=== PATIENT | female | born 1935 | race Caucasian/White ===

== ENCOUNTER 2020-09-10 07:45 | Emergency (ER) | payer BC, MEDICARE ==
[~2020-09-10] VITALS: Ht 167.6 cm; Wt 85.6 kg
[2020-09-10] MEDS ORDERED: NS 500 ML IV ONE (08:30)
[2020-09-10 08:37] LABS: BASO # 0.1 10^3/uL (0.0-0.2); BASO % 0.7 % (0.0-1.0); EOS # 0.2 10^3/uL (0.0-0.5); EOS % 1.7 % (0.0-3.0); HEMATOCRIT 44.6 % (36.0-47.0); HEMOGLOBIN 14.2 g/dl (12.0-15.5); LYMPH # 1.5 10^3/uL (1.5-5.0); LYMPH % 14.5 % (24.0-44.0); MEAN CORPUSCULAR HEMOGLOBIN 28.2 pg (27.0-33.0); MEAN CORPUSCULAR HGB CONC 31.8 g/dl (32.0-36.5); MEAN CORPUSCULAR VOLUME 88.7 fl (80.0-96.0); MONO # 0.9 10^3/uL (0.0-0.8); NEUTROPHILS # 7.3 10^3/uL (1.5-8.5); NEUTROPHILS % 73.6 % (36.0-66.0); PLATELET COUNT, AUTOMATED 234 10^3/uL (150-450); RED BLOOD COUNT 5.03 10^6/uL (4.00-5.40)
[2020-09-10 08:47] LABS: INR 1.02; PROTHROMBIN TIME 13.6 SECONDS (12.5-14.3)
[2020-09-10 08:48] LABS: PARTIAL THROMBOPLASTIN TIME 28.8 SECONDS (24.2-38.5)
[2020-09-10 09:02] LABS: ALBUMIN 3.6 GM/DL (3.2-5.2); ALT/SGPT 26 U/L (12-78); AMYLASE 21 U/L (25-115); BILIRUBIN,DIRECT 0.3 MG/DL (0.0-0.2); BLOOD UREA NITROGEN 16 MG/DL (7-18); CALCIUM LEVEL 8.9 MG/DL (8.8-10.2); CARBON DIOXIDE LEVEL 22 MEQ/L (21-32); CHLORIDE LEVEL 109 MEQ/L (98-107); CK-MB VALUE MASS 2.4 NG/ML (<3.6); CPK CREATINE PHOSPHOKINASE 145 U/L (26-192); CREATININE FOR GFR 1.13 MG/DL (0.55-1.30); GLOMERULAR FILTRATION RATE 48.8 (>32); GLUCOSE, FASTING 102 MG/DL (70-100); LIPASE 89 U/L (73-393); MB/CK RELATIVE INDEX 1.66 (< OR =4); POTASSIUM SERUM 3.9 MEQ/L (3.5-5.1); SODIUM LEVEL 139 MEQ/L (136-145); TOTAL PROTEIN 7.4 GM/DL (6.4-8.2); TROPONIN I < 0.02 NG/ML (< 0.10)
--- NOTE | 2020-09-10 09:23 | REP ---
INDICATION: pain. COMPARISON: 08/21/2005. TECHNIQUE: SINGLE PORTABLE AP VIEW OF THE CHEST WAS PERFORMED. FINDINGS: THERE IS NO ACUTE INFILTRATE OR PULMONARY EDEMA. LUNGS ARE CLEAR. HEART IS NOT SIGNIFICANTLY ENLARGED. MEDIASTINAL SILHOUETTE IS UNREMARKABLE. THE VISUALIZED OSSEOUS STRUCTURES ARE INTACT. IMPRESSION: NO ACUTE PULMONARY DISEASE. <Electronically signed by Dharmesh Pacheco > 09/10/20 [id number]
[2020-09-10] MEDS ORDERED: ISOVUE-370 76% 100ML VIAL As Ordered ONE (11:07)
--- NOTE | 2020-09-10 11:34 | REPVR ---
PROCEDURE INFORMATION: Exam: CT Head Without Contrast Exam date and time: 09/10/2020 11:22 AM Age: 84 years old Clinical indication: Pain; Headache; Additional info: Abdominal pain TECHNIQUE: Imaging protocol: Computed tomography of the head without contrast. Radiation optimization: All CT scans at this facility use at least one of these dose optimization techniques: automated exposure control; mA and/or kV adjustment per patient size (includes targeted exams where dose is matched to clinical indication); or iterative reconstruction. COMPARISON: No relevant prior studies available. FINDINGS: Brain: There is moderate cerebral atrophy. Cerebral ventricles: No ventriculomegaly. Bones/joints: There is hyperostosis frontalis. Paranasal sinuses: Visualized sinuses are unremarkable. No fluid levels. Mastoid air cells: Visualized mastoid air cells are well aerated. Vasculature: There is moderate intracranial vascular calcification. Soft tissues: Unremarkable. IMPRESSION: No acute intracranial findings identified. Please refer to incidental findings in body of report. Electronically signed by: Mando Leyva On 09/10/2020 11:34:13 AM
--- NOTE | 2020-09-10 11:47 | REP ---
INDICATION: abdominal pain. COMPARISON: None. TECHNIQUE: CT angiogram chest performed following the intravenous administration of 100 cc of Isovue 370. Sagittal and coronal reconstruction images are performed. FINDINGS: Lungs: Clear, no infiltrate or nodule. There appears to be mild bibasilar fibrotic change. Mediastinum: No adenopathy. Pulmonary arteries: No evidence of pulmonary embolism. Nicole: No adenopathy. Axilla: No adenopathy. Pleura: No effusion. Heart: Not enlarged. Thoracic aorta: No aneurysm or dissection. There is a 1 cm partially enhancing and partially cystic nodule in the right lobe of the thyroid gland measuring 1 cm in diameter. Visualized osseous structures: There are degenerative changes of the spine without compression deformity. IMPRESSION: No CT evidence of pulmonary embolism.No infiltrate seen. No aortic aneurysm or dissection. Partially cystic and solid right thyroid nodule 1 cm in diameter. This may be followed up with ultrasound of the thyroid. <Electronically signed by Dharmesh Pacheco > 09/10/20 [id number]
--- NOTE | 2020-09-10 11:55 | REP ---
INDICATION: abdominal pain COMPARISON: 08/23/2005. TECHNIQUE: CT Scan of the abdomen and pelvis was performed with intravenous administration of 100 cc of Isovue 370, without oral contrast. FINDINGS: Liver: A cyst is seen at the dome of the liver measuring 2.1 cm in diameter. Gallbladder: Several gallstones are seen in the gallbladder without gallbladder wall thickening or edema. There is no evidence of biliary dilatation. Spleen: Normal. Adrenals: Normal. Pancreas: Normal. Kidneys: There are multiple parapelvic cysts bilaterally. Small and large bowel: Unremarkable. No definite wall thickening. No evidence for obstruction. Free fluid: None. Abdominal aorta: No aneurysm or dissection. Adenopathy: None. Appendix: Not inflamed. Osseous structures: There are degenerative changes of the spine without compression deformity. Pelvis: No mass. The bladder is not distended and not evaluated. IMPRESSION: Chronic findings as discussed above. Gallstones are again seen in the gallbladder without evidence of gallbladder wall thickening or edema. No free air or free fluid. No bowel wall thickening or inflammation identified. No evidence of bowel obstruction. <Electronically signed by Dharmesh Pacheco > 09/10/20 [id number]
[2020-09-10] MEDS ORDERED: KEFL500C17 PO (12:20)
[2020-09-10 12:32] VITALS: BP 143/71
--- NOTE | 2020-09-11 14:06 | ECGEPIP ---
[facility] - ED Test Date: 2020-09-10 Pat Name: KETAN HUNTER Department: Room: - Gender: Female Deputy Brand Inspector: leonie hayes : 1935 Requested By: SUZETTE Felix Order Number: [id number] Reading MD: nAgeli Araujo Measurements Intervals [place] Rate: 76 P: 66 [place]: 209 QRS: 21 QRSD: 92 T: 50 QT: 386 QTc: 435 Interpretive Statements SINUS RHYTHM NO PRIOR Electronically Signed on 09-11-2020 14:06:32 EST by Angeli Araujo
--- NOTE | 2020-09-13 06:37 | ED PDOC ---
Post-Departure Follow-Up certified letter sent to pt re formal read of cta chest. please review. needs fu . find out who pcp is and fax. if no pcp refer to [facility] and fax.Mauricio Stoner MD Sep 13, 2020 06:37
== END 2020-09-10 12:34 | disposition home or self-care (01) ==
LOC: M ED 07:45 → EDBD 07:45 → M ED 12:34
DX: N39.0 Urinary tract infection, site not specified (principal); E04.1 Nontoxic single thyroid nodule; K50.90 Crohn's disease, unspecified, without complications; Z88.0 Allergy status to penicillin; Z88.2 Allergy status to sulfonamides; Z88.8 Allergy status to other drugs, medicaments and biological substances
CPT/HCPCS: 70450; 71045; 71275; 74177; 80048; 80076; 81001; 82150; 82550; 82553; 83605; 83690; 84484; 85025; 85610; 85730; 87088; 87186; 93005; 93041; 96360; 99285; Q9967

== ENCOUNTER → 2021-02-17 | Outpatient (REF) | payer MEDICARE ==
[~2021-02-17] MED LIST: KEFL500C17 PO
[2021-02-17 19:38] LABS: FOLATE 9.3 NG/ML; FREE T4 1.02 NG/DL (0.76-1.46); THYROID STIMULATING HORMONE 2.26 uIU/ML (0.358-3.740)
== END ==
LOC: M SFHCADAM 11:49
PROVIDERS: ATTEND Physician Assistant
DX: F03.91 Unspecified dementia, unspecified severity, with behavioral disturbance (principal); I10 Essential (primary) hypertension
CPT/HCPCS: 82607; 82746; 84439; 84443; G0463

== ENCOUNTER → 2021-04-24 | Outpatient (CLI) | payer MEDICARE ==
--- NOTE | 2021-04-24 08:18 | REPVR ---
PROCEDURE INFORMATION: Exam: CT Head Without Contrast Exam date and time: 04/24/2021 7:38 AM Age: 85 years old Clinical indication: Condition or disease; Other: Dementia TECHNIQUE: Imaging protocol: Computed tomography of the head without contrast. Radiation optimization: All CT scans at this facility use at least one of these dose optimization techniques: automated exposure control; mA and/or kV adjustment per patient size (includes targeted exams where dose is matched to clinical indication); or iterative reconstruction. COMPARISON: CT Head without contrast 09/10/2020 11:07 AM FINDINGS: Brain: Mild hypoattenuating foci are noted in the anterior lateral ventricular periventricular white matter bilaterally. No intracranial hemorrhage. No mass or acute cortical infarction identified. Cerebral ventricles: Prominence of the ventricular system and subarachnoid spaces is consistent with the patient's age of 85 years. Paranasal sinuses: Visualized sinuses are unremarkable. No fluid levels. Mastoid air cells: Visualized mastoid air cells are well aerated. Vasculature: Atherosclerotic calcifications are present involving the carotid artery siphons bilaterally. Bones/joints: No acute abnormality. No acute fracture. Soft tissues: Unremarkable. IMPRESSION: 1. Age appropriate supratentorial and infratentorial atrophy. 2. 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 3. No acute intracranial abnormality identified. Electronically signed by: Óscar Polanco On 04/24/2021 08:18:22 AM
== END ==
LOC: M RAD 07:23
PROVIDERS: ATTEND Physician Assistant
DX: F03.91 Unspecified dementia, unspecified severity, with behavioral disturbance (principal)

== ENCOUNTER 2021-05-17 10:39 | Emergency (ER) | payer MEDICARE ==
--- NOTE | 2021-05-17 11:57 | REP ---
INDICATION: altered mental status. COMPARISON: Comparison study April 24, 2021.. TECHNIQUE: Helical scanning is acquired. 5 mm axial images were reformatted. Coronal MPR images were generated. FINDINGS: Bone window settings demonstrate an intact bony calvarium. There is no evidence of skull fracture or incidental bony calvarial lesion. The visualized paranasal sinuses appear clear. No intraorbital abnormality is seen. On soft tissue window setting images; the lateral, third, and fourth ventricles are normal in size and position. Pacheco-white differentiation pattern is normal above and below the tentorium. There are is no evidence of intracranial hemorrhage. No mass, edema, infarction, or midline shift is seen. No extra-axial fluid collection is appreciated. Hyperostosis frontalis interna is visible on bone window settings. Vascular calcification is observed in the distal vertebral and distal internal carotid arteries. There is generalized volume loss and mild small vessel change noted on today's images unchanged from the April 24, 2021 study. IMPRESSION: Vascular calcification, generalized volume loss, small vessel changes. No acute intracranial abnormality.. <Electronically signed by Aki Pratt > 05/17/21 [id number]
--- NOTE | 2021-05-17 11:59 | REP ---
INDICATION: altered mental status. COMPARISON: Comparison chest x-ray September 10, 2020.. TECHNIQUE: AP sitting portable exam. FINDINGS: EKG electrodes are seen. The lungs are symmetrically aerated and clear. The pleural angles are sharp. Cardiomediastinal silhouette is unremarkable and unchanged. Pulmonary vasculature is not increased. IMPRESSION: No active disease. <Electronically signed by Aki Pratt > 05/17/21 [id number]
[2021-05-17 12:11] LABS: BASO # 0.1 10^3/uL (0.0-0.2); EOS # 0.2 10^3/uL (0.0-0.5); EOS % 1.8 % (0.0-3.0); HEMATOCRIT 43.7 % (36.0-47.0); HEMOGLOBIN 14.2 g/dl (12.0-15.5); LYMPH # 1.8 10^3/uL (1.5-5.0); LYMPH % 19.5 % (24.0-44.0); MEAN CORPUSCULAR HEMOGLOBIN 29.1 pg (27.0-33.0); MEAN CORPUSCULAR HGB CONC 32.5 g/dl (32.0-36.5); MEAN CORPUSCULAR VOLUME 89.5 fl (80.0-96.0); MONO # 1.2 10^3/uL (0.0-0.8); MONO % 12.8 % (2.0-8.0); NEUTROPHILS % 64.6 % (36.0-66.0); PLATELET COUNT, AUTOMATED 224 10^3/uL (150-450); RED BLOOD COUNT 4.88 10^6/uL (4.00-5.40); WHITE BLOOD COUNT 9.3 10^3/uL (4.0-10.0)
[2021-05-17 12:45] VITALS: BP 142/75
[2021-05-17 12:50] LABS: ACETAMINOPHEN LEVEL < 2.0 UG/ML (10.0-30.0); ALBUMIN 3.6 GM/DL (3.2-5.2); ALT/SGPT 24 U/L (12-78); BILIRUBIN,DIRECT < 0.1 MG/DL (0.0-0.2); BILIRUBIN,TOTAL 0.7 MG/DL (0.2-1.0); BLOOD UREA NITROGEN 17 MG/DL (7-18); CALCIUM LEVEL 8.9 MG/DL (8.8-10.2); CARBON DIOXIDE LEVEL 26 MEQ/L (21-32); CHLORIDE LEVEL 105 MEQ/L (98-107); CK-MB VALUE MASS 1.4 NG/ML (<3.6); CPK CREATINE PHOSPHOKINASE 173 U/L (26-192); CREATININE FOR GFR 1.05 MG/DL (0.55-1.30); ETHYL ALCOHOL (ETHANOL) < 0.003 % (0.000-0.010); GLUCOSE, FASTING 83 MG/DL (70-100); MB/CK RELATIVE INDEX 0.81 (< OR =4); POTASSIUM SERUM 4.5 MEQ/L (3.5-5.1); SALICYLATE LEVEL < 1.7 MG/DL (5.0-30.0); SODIUM LEVEL 137 MEQ/L (136-145); TOTAL PROTEIN 7.3 GM/DL (6.4-8.2); TROPONIN I < 0.02 NG/ML (< 0.10)
[2021-05-17] MEDS ORDERED: NITROFURANTOIN (MACROBID) 100 MG CAP PO ONE (13:10)
[2021-05-17] MEDS ORDERED: NITR-67 PO (13:10)
--- NOTE | 2021-05-18 20:23 | ECGEPIP ---
[facility] - ED Test Date: 2021-05-17 Pat Name: KETAN HUNTER Department: Room: - Gender: Female Community Support Associate: LR : 1935 Requested By: Mauricio Barba Order Number: [id number] Reading MD: Angeli Araujo Measurements Intervals [place] Rate: 92 P: 58 [place]: 180 QRS: 21 QRSD: 82 T: 63 QT: 348 QTc: 430 Interpretive Statements Sinus rhythm with occasional premature ventricular complexes increased rate/ectopy 09/10/20 Electronically Signed on 05-18-2021 20:23:11 EDT by Angeli Araujo
== END 2021-05-17 13:49 | disposition home or self-care (01) ==
LOC: M ED 10:39
DX: F03.90 Unspecified dementia, unspecified severity, without behavioral disturbance, psychotic disturbance, mood disturbance, and anxiety (principal); N39.0 Urinary tract infection, site not specified; I67.2 Cerebral atherosclerosis; Z88.0 Allergy status to penicillin; Z88.2 Allergy status to sulfonamides; Z88.8 Allergy status to other drugs, medicaments and biological substances

== ENCOUNTER 2021-08-20 15:34 | Inpatient (IN) | payer MEDICARE ==
[~2021-08-20] VITALS: Ht 160 cm; Wt 85.2 kg
[~2021-08-20 15:34] MED LIST changes: +NITR-67 PO
--- OUTSIDE RECORDS SUMMARY | 2021-08-20 15:42 | CCD | Continuity of Care Document ---
Author Rachna Robertson M.D. Organization Unknown Address [address] [place] [address] Phone [phone] Care Team Providers Care Machine Hose Cutter Name Role Phone Vivienne Nino PA-C AUTM [phone] Problems Active Problems Provider Date Alzheimer's disease Rola Cronin M.D. Onset: 05/27/2021 Generalized anxiety disorder Rola Cronin M.D. Onset: 01/2021 Diffuse Lewy body disease Rola Cronin M.D. Onset: 021 Social History Type Date Description Comments Sex Unknown Tobacco Use Start: Unknown Patient has never smoked Allergies and adverse reactions Description No Known Drug Allergies Medications Active Medications SIG Qnty Indications Ordering Provide r Date Memantine HCL 10mg Tablets Half a tab po bid for 2 weeks, then 1 po bid. 60tabs Rola Cronin M.D. 08/05/2021 Aripiprazole 2mg Tablets 1 by mouth qhs. 30tateofilo Cronin M.D. 06/02/2021 Citalopram Hydrobromide 20mg Table ts 1 by mouth qhs. 30ed Cronin M.D. 05/27/2021 Immunizations Description No Information Available Vital Signs Date Vital Result Comment 05/27/2021 8:37am BP Systolic 130 mmHg BP Diastolic 85 mmHg Heart Rate 74 /min Respiratory Rate 14 /min Height 64 inches 5'4" Weight 184.00 lb BMI (Body Mass Index) 31.6 kg/m2 [place] Body Weight 120 lb Results Description No Information Available Procedures Date Code Description Status 08/05/2021 74937 Office/Outpatient Established Lo w MDM 20-29 Min Completed 05/27/2021 18170 Office/Outpatient New Moderate M DM 45-59 Minutes Completed Medical Devices Description No Information Available Encounters Type Date Location Provider Dx Diagnosis Office Visit 08/05/2021 11:30a Main office - [place] Daniel Bergeron G30.1 Alzheimer's disease with late onset F41.1 Generalized anxiety disorder 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 08/05/2021 F41.1 Generalized anxiety disorder Theo Cronin M.D. 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 05/27/2021 G30.1 Alzheimer's disease with late on set Rola Cronin M.D. 05/27/2021 F41.1 Generalized anxiety disorder Theo Cronin M.D. Plan of Treatment Future Appointment(s):* 11/05/2021 11:00 am - Rola Cronin M.D. at Main office - [place] Functional Status Description No Information Available Mental Status Description No Information Available Referrals Refer to Dr Reason for Referral Status Appt Rola Marin M.D. Created [facility] [address] [place] [address] [phone]
--- OUTSIDE RECORDS SUMMARY | 2021-08-20 15:42 | CCD ---
Author [facility] Organization [facility] [employer] Address Unknown Phone Unavailable Care Team Providers Care Svp Digital Ad Sales Name Role Phone Vivienne Nino Unavailable PROBLEMS Type Condition ICD9-CM Code [id number] Code Onset Dates Condition S tatus W/U Status Risk SNOMED Code Notes Problem Dementia with behavioral disturbance, unspecifie d dementia type F03.91 Active confirmed 1324625537586 Problem Essential hypertension I10 Active confirmed [id number] ALLERGIES No Known Allergies ENCOUNTERS from 1935 to 2021-06-19 Encounter Location Date Provider Diagnosis [facility] [address] [place] [address] May, Vivienne Crowchas Dementia with behavioral disturbance, un specified dementia type F03.91 and Essential hypertension I10 IMMUNIZATIONS No Information SOCIAL HISTORY Tobacco Use: Social History Observation Description Date Details (start date - stop date) Sex Assigned At : Social History Observation Description Sex Assigned At Unknown Audit Question Answer Notes Total Score: 0 Interpretation: Alcohol Education Language: Question Answer Notes Languages spoken: Azeri Domestic Violence: Question Answer Notes Status: Single Drug and Alcohol Question Answer Notes Total Score: 0 Interpretation: No problems reported Alcohol Screening: Question Answer Notes Did you have a drink containing alcohol in the past year? No Points 0 Interpretation Negative Tobacco Use: Question Answer Notes Are you a: never smoker REASON FOR REFERRAL No Information VITAL SIGNS Weight 186 lbs May, Height 5'4" in May, BMI 31.92 kg/m2 May, Heart Rate 104 /min May, Respiratory Rate 18 /min May, Temperature 96.9 degrees Fahrenheit May, Oximetry 97 May, Blood pressure systolic 138 mm Hg May, Blood pressure diastolic 64 mm Hg May, MEDICATIONS Medication SIG (Take, Route, Frequency, Duration) Notes Start Da te End Date Status Citalopram Hydrobromide 10 MG 1 tablet Orally Once a day 2 8 Apr, 2021 Active Nitrofurantoin Monohyd Macro 100 MG TAKE ONE CAPSULE B Y MOUTH TWICE A DAY Oral for 7 Not-Taking ARIPiprazole 20 MG 1 tablet Orally Once a day Active PROCEDURES No Information RESULTS No Results REASON FOR VISIT post Dr Cronin followup MEDICAL (GENERAL) HISTORY Type Description Date Surgical History No Surgical history information Hospitalization History crohns disease-[facility] Goals Section No Information Health Concerns No Information MEDICAL EQUIPMENT No Information MENTAL STATUS No Information FUNCTIONAL STATUS No Information ASSESSMENTS Encounter Date Diagnosis Assessment Notes Treatment Notes Treatm ent Clinical Notes May, Dementia with behavioral dis turbance, unspecified dementia type (ICD-10 - F03.91) Per Neurology May, Essential hypertension (ICD-10 - I10) PLAN OF TREATMENT Medication Medication Name Sig Start Date Stop Date Citalopram Hydrobromide 10 MG 1 tablet Orally Once a day Apr, ARIPiprazole 20 MG 1 tablet Orally Once a day Treatment Notes Assessment Notes Clinical Notes Dementia with behavioral disturbance, unspecified dementia t ype Per Neurology Future Test Test Name Order Date CBC - Complete Blood Count [id number] Comprehensive Metabolic Profile (CMP) [id number] Next Appt Details 3 Months, labs prior Reason: Provider Name:Vivienne Nino, 2021-08 08:30:00 AM, [address] , [place], [address], Insurance Providers Payer Name Payer Address Payer Phone Insured Name Patient Relati onship to Insured Coverage Start Date Coverage End Date MEDICARE COMPLETE UNITED [employer] [address] [address] [facility] [id number] KETAN HUNTER
--- OUTSIDE RECORDS SUMMARY | 2021-08-20 15:42 | CCD ---
Author Author [facility] Organization [facility] [employer] [facility] Address Unknown Phone Unavailable Care Team Providers Care Mold Designer Name Role Phone Vivienne Nino Unavailable PROBLEMS Type Condition ICD9-CM Code JBW06-HB Code Onset Dates Condition S tatus W/U Status Risk SNOMED Code Notes Problem Dementia with behavioral disturbance, unspecifie d dementia type F03.91 Active confirmed [id number] Problem Essential hypertension I10 Active confirmed [id number] ALLERGIES No Known Allergies ENCOUNTERS from 1935 to 2021-06-02 Encounter Location Date Provider Diagnosis [facility] [address] [place] [address] Apr, Vivienne Crowchas Dementia with behavioral disturbance, un specified dementia type F03.91 and Acute cystitis without hematuria N30.00 IMMUNIZATIONS No Information SOCIAL HISTORY Tobacco Use: Social History Observation Description Date Details (start date - stop date) Sex Assigned At : Social History Observation Description Sex Assigned At Unknown Audit Question Answer Notes Total Score: 0 Interpretation: Alcohol Education Language: Question Answer Notes Languages spoken: Occitan Domestic Violence: Question Answer Notes Status: Single Drug and Alcohol Question Answer Notes Total Score: 0 Interpretation: No problems reported Alcohol Screening: Question Answer Notes Did you have a drink containing alcohol in the past year? No Points 0 Interpretation Negative Tobacco Use: Question Answer Notes Are you a: never smoker REASON FOR REFERRAL No Information VITAL SIGNS Weight 183 lbs Apr, Height 5'4" in Apr, BMI 31.41 kg/m2 Apr, Heart Rate 112 /min Apr, Respiratory Rate 18 /min Apr, Temperature 98 degrees Fahrenheit Apr, Oximetry 98 Apr, Blood pressure systolic 128 mm Hg Apr, Blood pressure diastolic 70 mm Hg Apr, MEDICATIONS Medication SIG (Take, Route, Frequency, Duration) Notes Start Da te End Date Status Nitrofurantoin Monohyd Macro 100 MG TAKE ONE CAPSULE B Y MOUTH TWICE A DAY Oral for 7 Active Citalopram Hydrobromide 10 MG 1 tablet Orally Once a day for 30 day(s) Apr, Active PROCEDURES No Information RESULTS No Results REASON FOR VISIT [facility] ER/ dementia and UTI MEDICAL (GENERAL) HISTORY Type Description Date Surgical History No know Surgical history Hospitalization History [facility]ns disease[facility] Goals Section No Information Health Concerns No Information MEDICAL EQUIPMENT No Information MENTAL STATUS No Information FUNCTIONAL STATUS No Information ASSESSMENTS Encounter Date Diagnosis Assessment Notes Treatment Notes Treatm ent Clinical Notes Apr, Dementia with behavioral dis turbance, unspecified dementia type (ICD-10 - F03.91) Apr, Acute cystitis without hematuria (ICD-10 - N30.0 0) She is instructed to complete only 5 days of abx PLAN OF TREATMENT Medication Medication Name Sig Start Date Stop Date Citalopram Hydrobromide 10 MG 1 tablet Orally Once a day for 30 day(s) Apr, Treatment Notes Assessment Notes Clinical Notes Acute cystitis without hematuria She is instructed to complete only 5 days of abx Next Appt Details prn Reason: Insurance Providers Payer Name Payer Address Payer Phone Insured Name Patient Relati onship to Insured Coverage Start Date Coverage End Date MEDICARE COMPLETE UNITED HEALTHC[employer] [address] [address] [facility] [id number] KETAN HUNTER
--- OUTSIDE RECORDS SUMMARY | 2021-08-20 15:42 | CCD | Continuity of Care Document ---
Author Rachna Robertson M.D. Organization Unknown Address [address] [place] [address] Phone [phone] Care Team Providers Care Customer Account Representative Name Role Phone Vivienne Nino PA-C AUTM [phone] Problems Active Problems Provider Date Alzheimer's disease [...] lb BMI (Body Mass Index) 31.6 kg/m2 [place] Body Weight 120 lb Results Description No Information Available Procedures Date Code Description Status 08/05/2021 78917 Office/Outpatient Established Lo w MDM 20-29 Min Completed 05/27/2021 04204 Office/Outpatient New Moderate M DM 45-59 Minutes Completed Medical Devices Description No Information Available Encounters Type Date Location Provider Dx Diagnosis Office Visit 08/05/2021 11:30a Main office - [place] Daniel Bergeron G30.1 Alzheimer's disease with late onset F41.1 Generalized anxiety disorder 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 at Main office - [place] Functional Status Description No Information Available Mental Status Description No Information Available Referrals Refer to Dr Reason for Referral Status Appt Rola Marin M.D. Created [facility] [address] [place] [address] [phone]
--- OUTSIDE RECORDS SUMMARY | 2021-08-20 15:43 | CCD | Continuity of Care Document ---
Author Rachna Robertson M.D. Organization Unknown Address [address] [place] [address] Phone [phone] Care Team Providers Care Paper Box Maker Name Role Phone Vivienne Nino PA-C AUTM [phone] Problems Active Problems Provider Date Alzheimer's disease Rola Cronin M.D. Onset: 05/27/2021 Generalized anxiety disorder Rola Cronin M.D. Onset: 01/2021 Social History Type Date Description Comments Sex Unknown Tobacco Use Start: Unknown Patient has never smoked Allergies, Adverse Reactions, Alerts Description No Known Drug Allergies Medications Active Medications SIG Qnty Indications Ordering Provide r Date Citalopram Hydrobromide 20mg Table ts 1 by mouth qhs. 30tabs Rola Cronin M.D. 05/27/2021 Immunizations Description No Information Available Vital Signs Date Vital Result Comment 05/27/2021 8:37am BP Systolic 130 mmHg BP Diastolic 85 mmHg Heart Rate 74 /min Respiratory Rate 14 /min Height 64 inches 5'4" Weight 184.00 lb BMI (Body Mass Index) 31.6 kg/m2 [place] Body Weight 120 lb Results Description No Information Available Procedures Date Code Description Status 05/27/2021 76689 Office/Outpatient New Moderate M DM 45-59 Minutes Completed Medical Devices Description No Information Available Encounters Type Date Location Provider Dx Diagnosis Office Visit 05/27/2021 8:00a Main office - [place] G30.1 Alzheimer's disease with late onset F41.1 Generalized anxiety disorder Assessments Date Code Description Provider 05/27/2021 G30.1 Alzheimer's disease with late on set Rola Cronin M.D. 05/27/2021 F41.1 Generalized anxiety disorder Theo Cronin M.D. Plan of Treatment Future Appointment(s):* 08/05/2021 11:30 am - Rola Cronin M.D. at Main office - [place] Functional Status Description No Information Available Mental Status Description No Information Available Referrals Refer to Reason for Referral Status Appt Date Rola Cronin M.D. Created [facility] [address] [place] [address] [phone]
--- OUTSIDE RECORDS SUMMARY | 2021-08-20 15:43 | CCD ---
Author Author [facility] Organization [facility] Address Unknown Phone Unavailable Care Team Providers Care Water Fabricator Operator Name Role Phone Hopkins, Michelle METAL WORK DUCT INSTALLER Unavailable Unavailable Hopkins, Michelle METAL WORK DUCT INSTALLER Unavailable Unavailable Hopkins, Michelle METAL WORK DUCT INSTALLER Unavailable Unavailable Hopkins, Michelle METAL WORK DUCT INSTALLER Unavailable Unavailable Hopkins, Michelle METAL WORK DUCT INSTALLER Unavailable Unavailable Hopkins, Michelle METAL WORK DUCT INSTALLER Unavailable Unavailable Hopkins, Michelle METAL WORK DUCT INSTALLER Unavailable Unavailable Hopkins, Michelle METAL WORK DUCT INSTALLER Unavailable Unavailable Hopkins, Michelle METAL WORK DUCT INSTALLER Unavailable Unavailable Hopkins, Michelle METAL WORK DUCT INSTALLER Unavailable Unavailable Hopkins, Michelle METAL WORK DUCT INSTALLER Unavailable Unavailable Hopkins, Michelle METAL WORK DUCT INSTALLER Unavailable Unavailable Hopkins, Michelle METAL WORK DUCT INSTALLER Unavailable Unavailable Rola Cronin MD Unavailable Unavailable Rola Cronin MD Unavailable Unavailable Rola Cronin MD Unavailable Unavailable Rola Cronin MD Unavailable Unavailable Rola Cronin MD Unavailable Unavailable Rola Cronin MD Unavailable Unavailable Rola Cronin MD Unavailable Unavailable Rola Cronin MD Unavailable Unavailable Rola Cronin MD Unavailable Unavailable Rola Cronin MD Unavailable Unavailable Rola Cronin MD Unavailable Unavailable Rola Cronin MD Unavailable Unavailable Rola Cronin MD Unavailable Unavailable Rola Cronin MD Unavailable Unavailable Rola Cronin MD Unavailable Unavailable Ali, Rola MD Unavailable Unavailable Ali, Rola MD Unavailable Unavailable Ali, Rola MD Unavailable Unavailable Ali, Rola MD Unavailable Unavailable Ali, Rola MD Unavailable Unavailable Ali, Rola MD Unavailable Unavailable Ali, Rola MD Unavailable Unavailable Ali, Rola MD Unavailable Unavailable Ali, Rola MD Unavailable Unavailable Ali, Rola MD Unavailable Unavailable Ali, Rola MD Unavailable Unavailable Ali, Rola MD Unavailable Unavailable Ali, Rola MD Unavailable Unavailable Ali, Rola MD Unavailable Unavailable Ali, Rola MD Unavailable Unavailable Ali, Rola MD Unavailable Unavailable Ali, Rola MD Unavailable Unavailable Ali, Rola MD Unavailable Unavailable Ali, Rola MD Unavailable Unavailable Ali, Rola MD Unavailable Unavailable Ali, Rola MD Unavailable Unavailable Ali, Rola MD Unavailable Unavailable Ali, Rola MD Unavailable Unavailable Ali, Rola MD Unavailable Unavailable Ali, Rola MD Unavailable Unavailable Ali, Rola MD Unavailable Unavailable Ali, Rola MD Unavailable Unavailable Ali, Rola MD Unavailable Unavailable Ali, Rola MD Unavailable Unavailable Ali, Rola MD Unavailable Unavailable Ali, Rola MD Unavailable Unavailable Ali, Rola MD Unavailable Unavailable Ali, Rola MD Unavailable Unavailable Ali, Rola MD Unavailable Unavailable Ali, Rola MD Unavailable Unavailable Re-disclosure Warning The records that you are about to access may contain information from federally-assisted alcohol or drug abuse programs. If such information is present, then the following federally mandated warning applies: This information has been disclosed to you from records protected by federal confidentiality rules (42 CFR part 2). The federal rules prohibit you from making any further disclosure of this information unless further disclosure is expressly permitted by the written consent of the person to whom it pertains or as otherwise permitted by 42 CFR part 2. A general authorization for the release of medical or other information is NOT sufficient for this purpose. The Federal rules restrict any use of the information to criminally investigate or prosecute any alcohol or drug abuse patient.The records that you are about to access may contain highly sensitive health information, the redisclosure of which is protected by Article 27-F of the [place] Public Health law. If you continue you may have access to information: Regarding HIV / AIDS; Provided by facilities licensed or operated by the [facility] Office of Mental Health; or Provided by the [facility] Office for People With Developmental Disabilities. If such information is present, then the following [facility] mandated warning applies: This information has been disclosed to you from confidential records which are protected by state law. State law prohibits you from making any further disclosure of this information without the specific written consent of the person to whom it pertains, or as otherwise permitted by law. Any unauthorized further disclosure in violation of state law may result in a fine or senior care sentence or both. A general authorization for the release of medical or other information is NOT sufficient authorization for further disc losure. Encounters Encounter Providers Location Date Indications Data Source(s ) Outpatient Attender: Rola Cronin MD Main office - [place] 08/05/2021 11:30:00 AM EDT [facility] Outpatient [address] [facility] [id number] 06/12/2021 12:00:00 AM EDT eCW1 (Formerly [facility]) Outpatient Attender: Rola Cronin MD Main office - [place] 05/27/2021 08:00:00 AM EDT MED[facility] ([facility], ) Outpatient [address] [facility] [id number] 05/20/2021 12:00:00 AM EDT eCW1 (Formerly [facility]) Outpatient [address] [id number] 04/28/2021 12:00:00 AM EDT eCW1 ([facility]) Outpatient Attender: Michelle sullivan 01/27/2021 09:45:00 AM EDT [facility] ([place] [facility]) Medications Medication Brand Name Start Date Product Form Dose Route Admi nistrative Instructions Pharmacy Instructions Status Indications Reaction Description Data Source(s) Citalopram 20 MG Oral Tablet CITALOPRAM HYDROBROMIDE 08/06/2021 12:00:00 AM EDT tablet 30 TAKE ONE TABLET BY MOUTH AT BEDT BEBA TAKE ONE TABLET BY MOUTH AT BEDTIME SOLD: 08/06/2021 [facility] Memantine hydrochloride 10 MG Oral Tablet MEMANTINE HCL 08/06/2021 12:00:00 AM EDT tablet 60 TAKE 1/2 TABLET BY MOUTH TWO TIMES A DAY FOR 2 WEEKS THEN 1 TABLET TWO TIMES A DAY TAKE 1/2 TABLET BY MOUTH TWO TIMES A DAY FOR 2 WEEKS THEN 1 TABLET TWO TIMES A DAY SOLD: 08/06/2021 [facility] Memantine hydrochloride 10 MG Oral Tablet Memantine HCL 08/05/2021 12:00:00 AM EDT active MED[facility] ([facility]) 2 mg 06/02/2021 12:00:00 AM EDT tablet 30 TAKE ONE TABLET BY MOUTH AT BEDTIME TAKE ONE TABLET BY MOUTH AT BEDTIME SOLD: 06/26/2021 [facility] 2 mg 06/02/2021 12:00:00 AM EDT tablet 30 TAKE ONE TABLET BY MOUTH AT BEDTIME TAKE ONE TABLET BY MOUTH AT BEDTIME SOLD: 06/02/2021 [facility] aripiprazole 2 MG Oral Tablet Aripiprazole 06/02/2021 12:00:00 AM EDT ORAL active [facility] ([facility]) 2 mg 06/02/2021 12:00:00 AM EDT tablet 30 TAKE ONE TABLET BY MOUTH AT BEDTIME TAKE ONE TABLET BY MOUTH AT BEDTIME SOLD: 07/28/2021 [facility] Citalopram 20 MG Oral Tablet CITALOPRAM HYDROBROMIDE 05/28/2021 12:00:00 AM EDT tablet 30 TAKE ONE TABLET BY MOUTH AT BEDT BEBA TAKE ONE TABLET BY MOUTH AT BEDTIME SOLD: 05/31/2021 [facility] Citalopram 20 MG Oral Tablet Citalopram Hydrobromide 05/27/2021 12:00:00 AM EDT ORAL active MED[facility] ( [facility]) 10 mg 05/20/2021 12:00:00 AM EDT tablet 30 TAKE ONE TABLET BY MOUTH EVERY DAY TAKE ONE TABLET BY MOUTH EVERY DAY SOLD: 05/20/2021 [facility] Citalopram 10 MG Oral Tablet Citalopram Hydrobromide 1 0 MG Citalopram Hydrobromide 10 MG 05/20/2021 12:00:00 AM EDT 1.0 {tablet} active Citalopram Hydrobromide 10 MG eCW1 ([facility]) Citalopram 10 MG Oral Tablet Citalopram Hydrobromide 1 0 MG Citalopram Hydrobromide 10 MG 05/20/2021 12:00:00 AM EDT 1.0 {tablet} active Citalopram Hydrobromide 10 MG eCW1 ([facility]) NITROFURANTOIN, MACROCRYSTALS 25 MG / Ni trofurantoin, Monohydrate 75 MG Oral Capsule 100 mg NITROFURANTOIN MONOHYD/M-CRYST 05/17/2021 12:00:00 AM EDT ca psule 14 TAKE ONE CAPSULE BY MOUTH TWICE A DAY TAKE ONE CAPSULE BY MOUTH TWICE A DAY SOLD: 05/17/2021 [facility] Cephalexin 500 MG Oral Capsule CEPHALEXIN 09/10/2020 12:00:00 AM EST capsule 14 TAKE ONE CAPSULE BY MOUTH EVERY 12 HOURS TAKE ONE CAPS ULE BY MOUTH EVERY 12 HOURS SOLD: 09/10/2020 [facility] Insurance Providers Payer name Policy type / Coverage type Policy ID Covered green party ID Covered green party's relationship to rod Policy Rod Plan Information BS [facility] [id number] SP [id number] MEDICARE [id number] SP [id number] A MEDICARE [id number] SP [id number] Medicare Natl Govt Servic Medicare Primary [id number] Self BS Fiona Trad/[place] Commercial [id number] Self MEDICARE COMPLETE-[facility] O [id number] S [id number] MEDICARE COMPLETE [id number] SP [id number] [place] JL PART B C [id number] S [id number] BS [employer] Medigap Part B [id number] Self MEDICARE C [id number] S [id number] [id number] [facility] [id number] SP [id number] MEDICARE COMPLETE [id number] SP [id number] MEDICARE COMPLETE [id number] SP [id number] MEDICARE COMPLETE [id number] SP [id number] Problems, Conditions, and Diagnoses Code Display Name Description Problem Type Effective Dates Data Source(s) G31.83 Diffuse Lewy body disease Diffuse Lewy body disease Pr oblem 08/05/2021 12:00:00 AM EDT MED[facility] ([facility] ) F41.1 Generalized anxiety disorder Generalized anxiety disor efren Problem 05/27/2021 12:00:00 AM EDT [facility] ([facility] ) G30.1 Alzheimer's disease Alzheimer's disease Problem 0 05/27/2021 12:00:00 AM EDT [facility] ([facility] ) I10 [id number] Essential hypertension Problem 02/19/2021 12 :00:00 AM EDT eCW1 ([facility]) 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 Dementia with behavi oral disturbance, unspecified dementia type Problem 02/17/2021 12:00:00 AM EDT eCW1 ([facility]) Surgeries/Procedures Procedure Description Date Indications Data Source(s) OFFICE OUTPATIENT VISIT 15 MINUTES 08/05/2021 12:00:00 AM EDT [facility] ([facility] ) OFFICE OUTPATIENT NEW 45 MINUTES 05/27/2021 12:00:00 A M EDT [facility] ([facility] ) Results No Information Social History Code Duration Value Status Description Data Source(s ) Smoking 06/12/2021 12:00:00 AM EDT UNK completed eCW1 ([facility]) Smoking 05/20/2021 12:00:00 AM EDT UNK completed eCW1 ([facility]) Smoking 04/28/2021 12:00:00 AM EDT UNK completed eCW1 ([facility]) Vital Signs ID Date Data Source UNK Name Value Range Interpretation Code Description Data Source(s) Body weight 186 [lb_av] 186 [lb_av] eCW1 ([facility]) Body height [in_i] eCW1 ([facility]) Body mass index (BMI) [Ratio] 31.92 kg/m2 31.92 kg/m2 eCW1 ([facility]) Heart rate 104 /min 104 /min eCW1 ([facility]) Respiratory rate 18 /min 18 /min eCW1 ([facility]) Body temperature 96.9 [degF] 96.9 [degF] eCW1 ( [facility]) Systolic blood pressure 138 mm[Hg] 138 mm[Hg] e CW1 ([facility]) Diastolic blood pressure 64 mm[Hg] 64 mm[Hg] eCW1 ([facility]) Systolic blood pressure 130 mm[Hg] 130 mm[Hg] M EDENT ([facility] ) Diastolic blood pressure 85 mm[Hg] 85 mm[Hg] MEDENT ([facility], ) Heart rate 74 /min 74 /min MED[facility] ([facility], ) Respiratory rate 14 /min 14 /min MED[facility] ( [facility], ) Body height 64 [in_i] 64 [in_i] MEDENT ([facility], ) 5'4" Body weight 184.00 [lb_av] 184.00 [lb_av] MEDEN T ([facility], ) Body mass index (BMI) [Ratio] 31.6 kg/m2 31.6 k g/m2 MEDENT ([facility], ) [place] body weight 120 [lb_av] 120 [lb_av] MEDEN T ([facility], ) Body height [in_i] eCW1 ([facility]) Body mass index (BMI) [Ratio] 31.41 kg/m2 31.41 kg/m2 eCW1 ([facility]) Heart rate 112 /min 112 /min eCW1 ([facility]) Respiratory rate 18 /min 18 /min eCW1 ([facility]) Body temperature 98 [degF] 98 [degF] eCW1 ([facility]) Systolic blood pressure 128 mm[Hg] 128 mm[Hg] e CW1 ([facility]) Diastolic blood pressure 70 mm[Hg] 70 mm[Hg] eCW1 ([facility]) Body weight 183 [lb_av] 183 [lb_av] eCW1 ([facility]) Body weight 182.8 [lb_av] 182.8 [lb_av] eCW1 ([facility]) Body height [in_i] eCW1 ([facility]) Body mass index (BMI) [Ratio] 31.37 kg/m2 31.37 kg/m2 eCW1 ([facility]) Heart rate 121 /min 121 /min eCW1 ([facility]) Respiratory rate 18 /min 18 /min eCW1 ([facility]) Body temperature 98.2 [degF] 98.2 [degF] eCW1 ( [facility]) Systolic blood pressure 150 mm[Hg] 150 mm[Hg] e CW1 ([facility]) Diastolic blood pressure 80 mm[Hg] 80 mm[Hg] eCW1 ([facility]) Systolic blood pressure 150 mm[Hg] 150 mm[Hg] M EDENT ([facility]) Diastolic blood pressure 72 mm[Hg] 72 mm[Hg] MEDENT ([facility], [facility]) Heart rate 100 /min 100 /min MEDENT ([facility]) Respiratory rate 20 /min 20 /min [facility] ( [facility]) Oxygen saturation in Arterial blood by Pulse oximetry 98 % 98 % [facility] ([facility]) Body temperature 97.5 [degF] 97.5 [degF] MEDENT ([facility]) Body weight 178.00 [lb_av] 178.00 [lb_av] MEDEN T ([facility]) Body height 62.5 [in_i] 62.5 [in_i] MEDENT ([facility]) 5'2.50" Body mass index (BMI) [Ratio] 32.0 kg/m2 32.0 k g/m2 [facility] ([facility]) Patient Treatment Plan of Care Planned Activity Planned Date Details Description Data Source (s) Citalopram 10 MG Oral Tablet 05/20/2021 12:00:00 AM EDT [facility] ([facility]) Citalopram 10 MG Oral Tablet 05/20/2021 12:00:00 AM EDT eC ([facility])
--- OUTSIDE RECORDS SUMMARY | 2021-08-20 15:43 | CCD | Continuity of Care Document ---
Author Rachna Robertson M.D. Organization Unknown Address [address] [place] [id number] Phone [phone] Care Team Providers Care International Accountant Name Role Phone Vivienne Nino PA-C AUTM [phone] Problems Active Problems Provider Date Alzheimer's disease [...] lb BMI (Body Mass Index) 31.6 kg/m2 [place] Body Weight 120 lb Results Description No Information Available Procedures Date Code Description Status 05/27/2021 [id number] Office/Outpatient New Moderate M DM 45-59 Minutes [...] disorder Theo Cronin M.D. Plan of Treatment No Information Available Functional Status Description No Information Available Mental Status Description No Information Available Referrals Description No Information Available
[2021-08-20] MEDS ORDERED: MEMA10TA19 (15:49)
[2021-08-20] MEDS ORDERED: CITA20TA7 (15:49)
--- OUTSIDE RECORDS SUMMARY | 2021-08-20 17:41 | CCD ---
Author Author [facility] Organization [facility] Address Unknown Phone Unavailable Care Team Providers Care Smoke Room Operator Name Role Phone Hopkins, Michelle FLITCH HANGER Unavailable Unavailable Hopkins, Michelle FLITCH HANGER Unavailable Unavailable Hopkins, Michelle FLITCH HANGER Unavailable Unavailable Hopkins, Michelle FLITCH HANGER Unavailable Unavailable Hopkins, Michelle FLITCH HANGER Unavailable Unavailable Hopkins, Michelle FLITCH HANGER Unavailable Unavailable Hopkins, Michelle FLITCH HANGER Unavailable Unavailable Hopkins, Michelle FLITCH HANGER Unavailable Unavailable Hopkins, Michelle FLITCH HANGER Unavailable Unavailable Hopkins, Michelle FLITCH HANGER Unavailable Unavailable Hopkins, Michelle FLITCH HANGER Unavailable Unavailable Hopkins, Michelle FLITCH HANGER Unavailable Unavailable Hopkins, Michelle FLITCH HANGER Unavailable Unavailable Rola Cronin MD Unavailable Unavailable [...] is protected by Article 27-F of the [place] State Public Health law. If you continue you may have access to information: Regarding HIV / AIDS; Provided by facilities licensed or operated by the [facility] Office of Mental Health; or Provided by the [facility] Office for People With Developmental Disabilities. If such information is present, then the following [facility] mandated warning applies: This information has [...] law may result in a fine or intermediate sentence or both. A general authorization for the release of medical or other information is NOT sufficient authorization for further disc losure. Encounters Encounter Providers Location Date Indications Data Source(s ) Outpatient Attender: Rola Cronin MD Main office - [place] 08/05/2021 11:30:00 AM EDT [facility] ([facility] Outpatient [address] [facility] [id number] 06/12/2021 12:00:00 AM EDT eCW1 ([facility]) Outpatient Attender: Rola Cronin MD Main office - [place] 05/27/2021 08:00:00 AM EDT MEDENT ([facility], ) Outpatient [address] [facility] [id number] 05/20/2021 12:00:00 AM EDT eCW1 ([facility]) Outpatient [address] [facility] [id number] 04/28/2021 12:00:00 AM EDT eCW1 ([facility]) Outpatient Attender: Michelle sullivan 01/27/2021 09:45:00 AM EDT MEDENT ([facility]) Medications Medication Brand Name Start Date [...] HCL 08/05/2021 12:00:00 AM EDT active MEDENT ([facility]) 2 mg 06/02/2021 12:00:00 AM [...] 06/02/2021 12:00:00 AM EDT ORAL active MEDENT ([facility]) 2 mg 06/02/2021 12:00:00 AM [...] 12:00:00 AM EDT ORAL active MEDENT ( [facility]) 10 mg 05/20/2021 12:00:00 AM EDT tablet 30 TAKE ONE TABLET BY MOUTH EVERY DAY TAKE ONE TABLET BY MOUTH EVERY DAY SOLD: 05/20/2021 Helen Bains Citalopram 10 MG Oral Tablet Citalopram Hydrobromide 1 0 MG Citalopram Hydrobromide 10 MG 05/20/2021 12:00:00 AM EDT 1.0 {tablet} active Citalopram Hydrobromide 10 MG eCW1 ([facility]) Citalopram 10 MG Oral Tablet Citalopram Hydrobromide 1 0 MG Citalopram Hydrobromide 10 MG 05/20/2021 12:00:00 AM EDT 1.0 {tablet} active Citalopram Hydrobromide 10 MG eCW1 ([facility]) NITROFURANTOIN, MACROCRYSTALS 25 MG / Ni [...] type / Coverage type Policy ID Covered libertarian ID Covered libertarian's relationship to rdo Policy Rod Plan Information BS [facility] [phone] [id number] SP [id number] MEDICARE [id number] SP [id number] A MEDICARE [id number] SP [id number] Medicare Natl Govt Servic Medicare Primary [id number] Self BS Fiona Trad/MX Commercial [id number] Self MEDICARE COMPLETE-[facility] O [id number] S [id number] MEDICARE COMPLETE [id number] SP [id number] [place] JL PART B C [id number] S [id number] BS [employer] Medigap Part B [id number] Self MEDICARE C [id number] S [id number] [id number] [facility] [id number] SP [id number] MEDICARE COMPLETE [id number] SP [id number] MEDICARE COMPLETE [id number] SP [id number] MEDICARE COMPLETE [id number] SP [id number] Problems, Conditions, and Diagnoses Code Display Name Description Problem Type Effective Dates Data Source(s) G31.83 Diffuse Lewy body disease Diffuse Lewy body disease Pr oblem 08/05/2021 12:00:00 AM EDT MEDENT ([facility] ) F41.1 Generalized anxiety disorder Generalized anxiety disor efren Problem 05/27/2021 12:00:00 AM EDT MED[facility] ([facility] ) G30.1 Alzheimer's disease Alzheimer's disease Problem 0 05/27/2021 12:00:00 AM EDT MEDENT ([facility] ) I10 [id number] Essential hypertension Problem 02/19/2021 12 :00:00 AM EDT eCW1 ([facility]) F03.91 [id number] Dementia with behavi oral disturbance, unspecified dementia type Problem 02/17/2021 12:00:00 AM EDT eCW1 ([facility]) Surgeries/Procedures Procedure Description Date Indications Data Source(s) OFFICE OUTPATIENT VISIT 15 MINUTES 08/05/2021 12:00:00 AM EDT MED[facility] ([facility] ) OFFICE OUTPATIENT NEW 45 MINUTES 05/27/2021 12:00:00 A M EDT MEDENT ([facility] ) Results No Information Social History Code Duration Value Status Description Data Source(s ) Smoking 06/12/2021 12:00:00 AM EDT UNK completed eCW1 ([facility]) Smoking 05/20/2021 12:00:00 AM EDT UNK completed eCW1 ([facility]) Smoking 04/28/2021 12:00:00 AM EDT UNK completed eCW1 ([facility]) Vital Signs ID Date Data Source UNK Name Value Range Interpretation Code Description Data Source(s) Body weight 186 [lb_av] 186 [lb_av] eCW1 ([facility]) Body height [in_i] eCW1 ([facility]) Body mass index (BMI) [Ratio] 31.92 kg/m2 31.92 kg/m2 eCW1 ([facility]) Heart rate 104 /min 104 /min eCW1 ([facility]) Respiratory rate 18 /min 18 /min eCW1 ([facility]) Body temperature 96.9 [degF] 96.9 [degF] eCW1 ( [facility]) Systolic blood pressure 138 mm[Hg] 138 mm[Hg] e CW1 ([facility]) Diastolic blood pressure 64 mm[Hg] 64 mm[Hg] eCW1 ([facility]) Systolic blood pressure 130 mm[Hg] 130 mm[Hg] M EDENT ([facility] ) Diastolic blood pressure 85 mm[Hg] 85 mm[Hg] MEDENT ([facility], ) Heart rate 74 /min 74 /min MEDENT ([facility], ) Respiratory rate 14 /min 14 /min MEDENT ( [facility], ) Body height 64 [in_i] 64 [in_i] MEDENT ([facility], ) 5'4" Body weight 184.00 [lb_av] 184.00 [lb_av] MEDEN T ([facility], ) Body mass index (BMI) [Ratio] 31.6 kg/m2 31.6 k g/m2 MEDENT ([facility]) [place] body weight 120 [lb_av] 120 [lb_av] MEDEN T ([facility]) Body weight 183 [lb_av] 183 [lb_av] eCW1 ([facility]) Body height [in_i] eCW1 ([facility]) Body mass index (BMI) [Ratio] 31.41 kg/m2 31.41 kg/m2 eCW1 ([facility]) Heart rate 112 /min 112 /min eCW1 ([facility]) Respiratory rate 18 /min 18 /min eCW1 ([facility]) Body temperature 98 [degF] 98 [degF] eCW1 ([facility]) Systolic blood pressure 128 mm[Hg] 128 mm[Hg] e CW1 ([facility]) Diastolic blood pressure 70 mm[Hg] 70 mm[Hg] eCW1 ([facility]) Body weight 182.8 [lb_av] 182.8 [lb_av] eCW1 ([facility]) Body height [in_i] eCW1 ([facility]) Body mass index (BMI) [Ratio] 31.37 kg/m2 31.37 kg/m2 eCW1 ([facility]) Heart rate 121 /min 121 /min eCW1 ([facility]) Respiratory rate 18 /min 18 /min eCW1 ([facility]) Body temperature 98.2 [degF] 98.2 [degF] eCW1 ( [facility]) Systolic blood pressure 150 mm[Hg] 150 mm[Hg] e CW1 ([facility]) Diastolic blood pressure 80 mm[Hg] 80 mm[Hg] eCW1 ([facility]) Systolic blood pressure 150 mm[Hg] 150 mm[Hg] M EDENT ([facility], [facility]) Diastolic blood pressure 72 mm[Hg] 72 mm[Hg] MEDENT ([facility], [facility]) Heart rate 100 /min 100 /min MEDENT ([facility], [facility]) Respiratory rate 20 /min 20 /min [facility] ( [facility]) Oxygen saturation in Arterial blood by Pulse oximetry 98 % 98 % [facility] ([facility]) Body temperature 97.5 [degF] 97.5 [degF] MEDENT ([facility], [facility]) Body weight 178.00 [lb_av] 178.00 [lb_av] MEDEN T ([facility], [facility]) Body height 62.5 [in_i] 62.5 [in_i] MEDENT ([facility]) 5'2.50" Body mass index (BMI) [Ratio] 32.0 kg/m2 32.0 k g/m2 [facility] ([facility]) Patient Treatment Plan of Care Planned Activity Planned Date Details Description Data Source (s) Citalopram 10 MG Oral Tablet 05/20/2021 12:00:00 AM EDT [facility] ([facility]) Citalopram 10 MG Oral Tablet 05/20/2021 12:00:00 AM EDT eC ([facility])
--- NOTE | 2021-08-20 18:07 | REP ---
INDICATION: Altered Mental Status. COMPARISON: Multiple latest 05/17/2021 TECHNIQUE: Portable FINDINGS: The technique utilized in obtaining the radiograph has magnified the cardiac silhouette and accentuated the interstitial markings. Cardiomediastinal silhouette lung ryan are unchanged. No acute patchy parenchymal opacities or pleural effusions have developed. Heart is not enlarged the pleural angles are sharp the osseous structures stable and intact. IMPRESSION: There is no acute cardiopulmonary disease. <Electronically signed by Jalil Youngblood > 08/20/21 [id number]
--- NOTE | 2021-08-20 18:10 | REPVR ---
PROCEDURE INFORMATION: Exam: CT Head Without Contrast Exam date and time: 08/20/2021 5:37 PM Age: 85 years old Clinical indication: Altered mental status/memory loss TECHNIQUE: Imaging protocol: Computed tomography of the head without contrast. Radiation optimization: All CT scans at this facility use at least one of these dose optimization techniques: automated exposure control; mA and/or kV adjustment per patient size (includes targeted exams where dose is matched to clinical indication); or iterative reconstruction. COMPARISON: CT Head without contrast 05/17/2021 11:32 AM FINDINGS: Brain: There is no acute intracranial hemorrhage, cerebral edema, or midline shift. Chronic microvascular ischemic changes are seen in the periventricular white matter. Age-related cerebral and cerebellar volume loss is present. Cerebral ventricles: Mild ex vacuo dilation of the lateral and third ventricles is noted. Paranasal sinuses: There is no acute sinusitis. Mastoid air cells: The mastoid air cells are clear. Orbital cavity: The included orbital structures are unremarkable. Vasculature: Atherosclerotic calcifications are seen involving the cavernous carotid arteries. Bones/joints: Hyperostosis frontalis interna is noted. Soft tissues: Unremarkable. IMPRESSION: 1. No acute intracranial abnormality. 2. Atrophy and chronic deep white matter ischemic changes. Electronically signed by: Terrance Clements On 08/20/2021 18:09:32 PM
[2021-08-20 18:23] LABS: BASO # 0.1 10^3/uL (0.0-0.2); BASO % 0.6 % (0.0-1.0); EOS # 0.1 10^3/uL (0.0-0.5); EOS % 1.2 % (0.0-3.0); HEMATOCRIT 40.8 % (36.0-47.0); HEMOGLOBIN 13.3 g/dl (12.0-15.5); LYMPH # 1.5 10^3/uL (1.5-5.0); LYMPH % 13.2 % (24.0-44.0); MEAN CORPUSCULAR HEMOGLOBIN 29.3 pg (27.0-33.0); MEAN CORPUSCULAR HGB CONC 32.6 g/dl (32.0-36.5); MEAN CORPUSCULAR VOLUME 89.9 fl (80.0-96.0); MONO # 1.4 10^3/uL (0.0-0.8); MONO % 12.1 % (2.0-8.0); NEUTROPHILS # 8.2 10^3/uL (1.5-8.5); NEUTROPHILS % 72.4 % (36.0-66.0); PLATELET COUNT, AUTOMATED 259 10^3/uL (150-450); RED BLOOD COUNT 4.54 10^6/uL (4.00-5.40); WHITE BLOOD COUNT 11.3 10^3/uL (4.0-10.0)
[2021-08-20 18:56] LABS: ALT/SGPT 25 U/L (12-78); BILIRUBIN,DIRECT 0.2 MG/DL (0.0-0.2); BILIRUBIN,TOTAL 0.7 MG/DL (0.2-1.0); BLOOD UREA NITROGEN 20 MG/DL (7-18); CALCIUM LEVEL 9.8 MG/DL (8.8-10.2); CARBON DIOXIDE LEVEL 27 MEQ/L (21-32); CHLORIDE LEVEL 105 MEQ/L (98-107); CPK CREATINE PHOSPHOKINASE 180 U/L (26-192); CREATININE FOR GFR 1.23 MG/DL (0.55-1.30); GLOMERULAR FILTRATION RATE 44.2 (>32); GLUCOSE, FASTING 110 MG/DL (70-100); MB/CK RELATIVE INDEX 2.22 (< OR =4); POTASSIUM SERUM 4.1 MEQ/L (3.5-5.1); SODIUM LEVEL 136 MEQ/L (136-145); TOTAL PROTEIN 7.9 GM/DL (6.4-8.2); TROPONIN I < 0.02 NG/ML (< 0.10)
--- NOTE | 2021-08-20 20:26 | ECGEPIP ---
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
[2021-08-20] MEDS ORDERED: cefTRIAXone SOD 1 GM in D5W MINI-BAG PLUS 50 ML IV ONE (22:05)
[2021-08-20] MEDS ORDERED: MOM 30ML SUSPENSION UDC PO PRN (22:40)
[2021-08-20 23:17] LABS: RSV AMPLIFICATION NEGATIVE (NEGATIVE)
[2021-08-20] MEDS ORDERED: ABIL1TAB13 PO (23:38)
[2021-08-20] MEDS ORDERED: CITA20TA6 PO (23:38)
[2021-08-20] MEDS ORDERED: MEMA10TA19 PO (23:38)
[2021-08-20] MEDS ORDERED: HOME MED LIST COMPLETE! XX SCH (23:40)
--- NOTE | 2021-08-20 23:53 | HPEPDOC ---
[facility] Medical History & Physical Date of Admission Aug 20, 2021 Date of Service: Aug 20, 2021 Primary Care Physician: ESTEVAN BERGER PA-C Attending Physician: SHELBY FULLER MD History and Physical TIME OF SERVICE: 1040pm CHIEF COMPLAINT: confusion HISTORY OF PRESENT ILLNESS: Per d/w Antione Shanks , an 85 yr old F with dementia who lives with her niece (who is her caregiver) was found wondering on the streets by State troopers multiple times. Unfortunately her niece had a stroke and was hospitalized. The patient was brought to the ER by neighbors. REVIEW OF SYSTEMS: unable to obtain bc pt has dementia PAST MEDICAL/ SURGICAL HISTORY: Dementia FAMILY HISTORY: unable to obtain bc pt has dementia SOCIAL HISTORY: unable to obtain bc pt has dementia ALLERGIES: Please see below. HOME MEDICATIONS: Please see below. PHYSICAL EXAMINATION: Vital Signs Date Time Temp Pulse Resp B/P (MAP) Pulse Ox O2 Delivery O2 Flow Rate FiO2 08/20/21 15:34 97.7 87 18 177/74 (108) 95 Room Air GENERAL APPEARANCE: well-nourished and developed/ NAD HEENT: EOMI / MMM&P CARDIOVASCULAR: RRR/NMRG LUNGS: CTAB on RA ABDOMEN: contour convex MUSCULOSKELETAL: NCAT INTEGUMENT: not flushed or diaphoretic NEUROLOGICAL: CN 2-12 grossly intact / speech not dysarthric PSYCHIATRIC: A&O to person only / able to understand and follow all commands LABORATORY DATA: IMAGING: Chest xray IMPRESSION: There is no acute cardiopulmonary disease. CT head IMPRESSION: 1. No acute intracranial abnormality. 2. Atrophy and chronic deep white matter ischemic changes. MICROBIOLOGY: Respiratory panel negative ASSESSMENT: is an 85 yr old w dementia whos caregiver is hospitalized, the patient was brought to the ER by neighbors and will be admitted for tx of a UTI (not sure if she is symptomatic) pending PFS consult. PLAN: 1 Cystitis w hematuria -bc the patient has dementia we it is difficult to determine if she is symptomatic Plan: switch from Ceftriaxone to Fosfomycin x 1 2 Dementia (Alzheimer?) Plan: sitter / c/w aripiprazole, citalopram and memantine pending PFS consult 3 Class 1 obesity complicates care DVT px w lovenox Disposition: possibly placement in NH or other family member after more than 2 midnights stay Home Medications Scheduled Aripiprazole (Abilify) 2 Mg Tablet, 2 MG PO QHS Citalopram Hydrobromide (Citalopram HBr) 20 Mg Tablet, 20 MG PO QHS Memantine HCl (Memantine HCl) 10 Mg Tablet, 10 MG PO BID Allergies Coded Allergies: Penicillins (Verified Allergy, Mild, RASH, 08/20/21) Quinolones (Verified Allergy, Unknown, 09/10/20) prednisone (Verified Allergy, Unknown, 09/10/20) Sulfa (Sulfonamide Antibiotics) (Verified Adverse Reaction, Intermediate, FLUID RETENTION, 09/10/20) A-FIB/CHADSVASC A-FIB History Current/History of A-Fib/PAF?: No Current PO Anticoag Therapy: No SHELBY FULLER MD Aug 20, 2021 23:53
[2021-08-21] MEDS: CitaloPRAM (CeleXA) 20 MG TAB PO SCH ×2 (01:55→21:00)
[2021-08-21] MEDS: ARIPiprazole 2 MG TAB PO SCH ×2 (01:55→21:00)
[2021-08-21] MEDS: MEMANTINE 5MG TABLET (NAMENDA) PO SCH ×3 (01:56→21:00)
[2021-08-21] MEDS ORDERED: FOSFOMYCIN TROMETHAMINE 3 GM POWDER PACKET (MONUROL) PO ONE (04:15)
[2021-08-21 07:32] LABS: HEMATOCRIT 39.6 % (36.0-47.0); MEAN CORPUSCULAR HEMOGLOBIN 29.3 pg (27.0-33.0); MEAN CORPUSCULAR HGB CONC 32.8 g/dl (32.0-36.5); MEAN CORPUSCULAR VOLUME 89.4 fl (80.0-96.0); PLATELET COUNT, AUTOMATED 233 10^3/uL (150-450); RED BLOOD COUNT 4.43 10^6/uL (4.00-5.40); WHITE BLOOD COUNT 10.8 10^3/uL (4.0-10.0)
[2021-08-21 08:13] LABS: CREATININE FOR GFR 0.98 MG/DL (0.55-1.30); GLOMERULAR FILTRATION RATE 57.4 (>32); POTASSIUM SERUM 3.9 MEQ/L (3.5-5.1)
[2021-08-21 08:43] LABS: HEMOGLOBIN A1c 5.6 %
[2021-08-21] MEDS ORDERED: ENOXAPARIN 40MG/0.4ML SYRINGE (J1650 PER 10MG) SC SCH (09:00)
[2021-08-21] MEDS: ENOXAPARIN 30MG/0.3ML SYRINGE (J1650 PER 10MG) SC SCH (10:23)
--- NOTE | 2021-08-21 10:34 | REP ---
INDICATION: hematuria. COMPARISON: None. TECHNIQUE: Real-time transvesical sonographic evaluation of the urinary bladder with Doppler FINDINGS: The pre void urinary bladder volume calculation is 57.4 cc. The patient was unable to void. Doppler at the UV junction shows uro jet phenomena bilaterally. No gross urinary bladder abnormalities were identified. IMPRESSION: As above. <Electronically signed by Jalil Youngblood > 08/21/21 1411
[2021-08-21] MEDS ORDERED: HALOPERIDOL 5MG/ML VIAL (J1630 PER 1) IV ONE (14:00)
--- NOTE | 2021-08-21 14:38 | IPNPDOC ---
Text Note Date of Service The patient was seen on 08/21/21. NOTE Subjective: Patient seen and examined at bedside. No acute overnight events reported. Patient was agitated and combative. Patient unable to provide any reliable information. Objective: Vital Signs: reviewed General: NAD, lying comfortably in bed, elderly HEENT: NC/AT, EOMI Neck: supple, no masses Chest: lungs CTA B/L Heart: +S1S2, RRR Abd: soft, NT, ND, +BS Ext: no edema Skin: no rashes MSK: full ROM at large joints Neuro: no gross focal deficits Psych: Alert, awake, unable to assess orientation as patient not answering questions A/P: 85 yo female with dementia whos caregiver is hospitalized, patient was brought to the ER by neighbors, found to have UTI. #Cystitis w hematuria - bladder ultrasound unrevealing - s/p fofmoycin x 1 #dementia - continue with sitter - continue aripiprazole, citalopram and memantine - pending PFS consult for possible placement #obesity - complicates care #DVT prophylaxis VS,Fishbone, I+O VS, Fishbone, I+O Laboratory Tests 08/20/21 18:00 08/21/21 07:15 Vital Signs Date Time Temp Pulse Resp B/P (MAP) Pulse Ox O2 Delivery O2 Flow Rate FiO2 08/21/21 08:00 98.7 70 14 155/71 (99) 95 Room Air I&O- Last 24 Hours up to 6 AM 08/21/21 06:00 Intake Total 50 ml Balance 50 ml ELIA ORTIZ MD Aug 21, 2021 14:37
[2021-08-21 15:45] VITALS: BP 160/75
[2021-08-21] MEDS ORDERED: HALOPERIDOL 5MG/ML VIAL (J1630 PER 1) IV PRN (18:30)
[2021-08-21] MEDS: NYSTATIN 100,000 UNITS/GM TOPICAL PWD 15 GM TOP SCH (21:00)
[2021-08-21 22:00] VITALS: BP 136/62
[2021-08-22 06:00] VITALS: BP 140/67
[2021-08-22 07:11] LABS: BASO # 0.1 10^3/uL (0.0-0.2); BASO % 0.8 % (0.0-1.0); EOS # 0.3 10^3/uL (0.0-0.5); EOS % 2.9 % (0.0-3.0); HEMATOCRIT 39.9 % (36.0-47.0); HEMOGLOBIN 13.1 g/dl (12.0-15.5); LYMPH # 1.5 10^3/uL (1.5-5.0); LYMPH % 15.9 % (24.0-44.0); MEAN CORPUSCULAR HEMOGLOBIN 29.6 pg (27.0-33.0); MEAN CORPUSCULAR HGB CONC 32.8 g/dl (32.0-36.5); MEAN CORPUSCULAR VOLUME 90.3 fl (80.0-96.0); MONO # 1.3 10^3/uL (0.0-0.8); NEUTROPHILS # 6.5 10^3/uL (1.5-8.5); NEUTROPHILS % 66.8 % (36.0-66.0); PLATELET COUNT, AUTOMATED 256 10^3/uL (150-450); RED BLOOD COUNT 4.42 10^6/uL (4.00-5.40); WHITE BLOOD COUNT 9.7 10^3/uL (4.0-10.0)
[2021-08-22 07:36] LABS: BILIRUBIN,TOTAL 0.7 MG/DL (0.2-1.0); CALCIUM LEVEL 8.8 MG/DL (8.8-10.2); CREATININE FOR GFR 0.95 MG/DL (0.55-1.30); GLOMERULAR FILTRATION RATE 59.5 (>32); MAGNESIUM LEVEL 1.9 MG/DL (1.8-2.4); POTASSIUM SERUM 4.3 MEQ/L (3.5-5.1)
[2021-08-22] MEDS: ENOXAPARIN 30MG/0.3ML SYRINGE (J1650 PER 10MG) SC SCH (09:07)
[2021-08-22] MEDS: NYSTATIN 100,000 UNITS/GM TOPICAL PWD 15 GM TOP SCH ×2 (09:07→20:39)
[2021-08-22] MEDS: MEMANTINE 5MG TABLET (NAMENDA) PO SCH ×2 (09:07→20:39)
--- NOTE | 2021-08-22 09:12 | IPNPDOC ---
Text Note Date of Service The patient was seen on 08/22/21. NOTE Subjective: Patient seen and examined at bedside. No acute overnight events reported. Patient voices no new medical complaints this morning. Objective: Vital Signs: reviewed General: NAD, lying comfortably in bed, elderly HEENT: NC/AT, EOMI Neck: supple, no masses Chest: lungs CTA B/L Heart: +S1S2, RRR Abd: soft, mild suprapubic tenderness, ND, +BS Ext: no edema Skin: no rashes Neuro: no gross focal deficits Psych: AAOx3 with prompting A/P: 85 yo female with dementia whos caregiver is hospitalized, patient was brought to the ER by neighbors, found to have UTI. #Cystitis w hematuria - leukocytosis resolved, H/H stable - bladder ultrasound unrevealing - s/p fofmoycin x 1 - UCx pending, BCx pending #dementia - continue aripiprazole, citalopram and memantine - pending PFS consult for possible placement #obesity - complicates care #DVT prophylaxis Dispo: pending placement VS,Fishbone, I+O VS, Fishbone, I+O Laboratory Tests 08/22/21 06:32 Vital Signs Date Time Temp Pulse Resp B/P (MAP) Pulse Ox O2 Delivery O2 Flow Rate FiO2 08/22/21 06:00 97.6 70 18 140/67 (91) 98 Room Air I&O- Last 24 Hours up to 6 AM 08/22/21 06:00 Intake Total 420 ml Output Total 925 ml Balance -505 ml ELIA ORTIZ MD Aug 22, 2021 09:12
[2021-08-22 14:00] VITALS: BP 131/69
[2021-08-22] MEDS: CitaloPRAM (CeleXA) 20 MG TAB PO SCH (20:39)
[2021-08-22] MEDS: ARIPiprazole 2 MG TAB PO SCH (20:39)
[2021-08-22 22:00] VITALS: BP 141/67
[2021-08-23] MEDS: ACETAMINOPHEN TAB 650MG DOSE (2X325MG) PO PRN (04:02)
[2021-08-23 06:00] VITALS: BP 124/62
[2021-08-23] MEDS: ENOXAPARIN 30MG/0.3ML SYRINGE (J1650 PER 10MG) SC SCH (10:11)
[2021-08-23] MEDS: NYSTATIN 100,000 UNITS/GM TOPICAL PWD 15 GM TOP SCH ×2 (10:11→21:00)
[2021-08-23] MEDS: MEMANTINE 5MG TABLET (NAMENDA) PO SCH ×2 (10:11→21:43)
[2021-08-23 14:00] VITALS: BP 140/63
[2021-08-23] MEDS ORDERED: QUEtiapine FUMARATE 12.5 MG HALF-TAB PO ONE (17:00)
[2021-08-23] MEDS ORDERED: QUEtiapine FUMARATE 12.5 MG HALF-TAB PO SCH (21:00)
[2021-08-23] MEDS: CitaloPRAM (CeleXA) 20 MG TAB PO SCH (21:43)
[2021-08-23] MEDS: ARIPiprazole 2 MG TAB PO SCH (21:43)
--- NOTE | 2021-08-24 00:50 | ECGEPIP ---
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 No remarkable changes but PVCs were n noted in the past rate Electronically Signed on 08-24-2021 0:49:59 EDT by Bentley Woodruff
[2021-08-24 06:00] VITALS: BP 145/73
[2021-08-24] MEDS: MEMANTINE 5MG TABLET (NAMENDA) PO SCH (10:04)
[2021-08-24] MEDS: NYSTATIN 100,000 UNITS/GM TOPICAL PWD 15 GM TOP SCH (10:04)
[2021-08-24] MEDS: ENOXAPARIN 30MG/0.3ML SYRINGE (J1650 PER 10MG) SC SCH (10:04)
[2021-08-24] MEDS: ACETAMINOPHEN TAB 650MG DOSE (2X325MG) PO PRN (19:01)
[2021-08-24 22:00] VITALS: BP 162/70
[2021-08-25] MEDS: MEMANTINE 5MG TABLET (NAMENDA) PO SCH ×3 (00:08→20:32)
[2021-08-25] MEDS: QUEtiapine FUMARATE 12.5 MG HALF-TAB PO SCH ×2 (00:08→20:31)
[2021-08-25] MEDS: ARIPiprazole 2 MG TAB PO SCH ×2 (00:09→20:32)
[2021-08-25] MEDS: NYSTATIN 100,000 UNITS/GM TOPICAL PWD 15 GM TOP SCH ×3 (00:09→20:32)
[2021-08-25] MEDS: CitaloPRAM (CeleXA) 20 MG TAB PO SCH ×2 (00:09→20:32)
[2021-08-25 06:00] VITALS: BP 148/68
[2021-08-25 08:41] VITALS: BP 140/82
[2021-08-25] MEDS: ENOXAPARIN 30MG/0.3ML SYRINGE (J1650 PER 10MG) SC SCH (09:18)
[2021-08-25] MEDS: ACETAMINOPHEN TAB 650MG DOSE (2X325MG) PO PRN (15:10)
--- NOTE | 2021-08-26 08:09 | MHCRPDOC ---
[facility] Consultation Consultation DATE OF CONSULTATION: 08/26/21 CONSULTATION REQUESTED BY: Hospitalist team REASON FOR CONSULTATION: Evaluation for capacity regarding question whether patient can make decision for level of care RELEVANT HISTORY: Patient is an 85-year-old woman with history of dementia, depression, Crohn's, UTI who presents to the hospital after being found by police wandering street multiple times and brought in by neighbors to the hospital, patient's 16/05 caregiver, who is her niece had a stroke and likely unable to continue with her care. Psychiatry is consulted to evaluate for capacity to make decision regarding level of care. Patient does not have a proxy or surrogate. On interview patient was unable to make a clear decision regarding how she should proceed with her care when discussing several options, states " I think I am fine and good, but I do not know what to do, I cannot think of these things". She was unable to evaluate the benefits and drawbacks regarding different levels of care including support at home versus a higher level of care. When asked about her niece she seem to have little insight into her medical condition where the fact that she had been assisting her with her basic and instrumental ADLs. Per nursing due to cognitive impairment she needs assistance with basic ADLs. Was noted that she did not take any food from her breakfast tray, but states that her appetite is good and her sleep is restful. Denies any side effects from her medications, denies any acute physical complaints. When assessing her attention concentration, memory patient is unable to follow basic instructions to spell world backwards or participate in other activities such as serial sevens, patient is alert and oriented to self and place but not time, did not know the year the month or the day. Patient did not seem to have an understanding, appreciation of her situation and possible options, was unable to reason through different options or understand what needs of hers need to be taken care of and was not able to communicate a clear decision with regards to her level of care. Patient denied any symptoms of depression, anxiety, psychosis, binh, denied suicidal ideations or homicidal ideations. PAST PSYCHIATRIC HISTORY: See above, prescribed Celexa, Abilify, started on Seroquel 12.5 mg for agitation, takes memantine 10 mg twice daily for dementia PAST MEDICAL HISTORY: Crohn's, UTI, dementia FAMILY HISTORY: Unknown PERSONAL AND SOCIAL HISTORY: The patient was born and raised in [place]. Resides in: [place] Marital Status: S Single Employment: Unemployed SUBSTANCE ABUSE HISTORY: Denies LEGAL HISTORY: Denies MENTAL STATUS EXAMINATION: Patient is a 85-year old female, who is in no acute distress, appears stated age, good hygiene, good eye contact, dressed in hospital clothing and sitting in a hospital bed. Speech is decreased rate, normal volume, normal prosody, spontaneous Language skills are poor Thought processes including: Tangential Thought content: Denies any suicidal ideation, intent or plan, states she feels she is doing okay and has little insight into her situation. Abstract reasoning, and computation: Poor, based on interview Description of associations: was not able to understand basic instructions on finding associations amongst transportation or fruit. Description of abnormal or psychotic thoughts: Denies, not observed. Judgment: Limited Insight: Limited Orientation to person and place, not time Recent and remote memory: Poor, remembered 0 of 3 items Attention span and concentration: Decreased Language: Uzbek Fund of knowledge: Unclear, likely below average based on cognitive impairment Mood: "Good" Affect: Euthymic, full, mood congruent DIAGNOSIS: 1. Major neurocognitive disorder PLAN: 1. Patient per interview was unable to comprehend, appreciate reason through with impaired communication question of care needs and being able to make a decision with regards to her level of care, patient likely does not have capacity to make a decision regarding her level of care, would likely benefit from a higher level of care. Patient does not meet criteria for inpatient psychiatric admission, can be continued on medications patient is agreeable, has reports no side effects and mood is even. 2. Patient does not have a proxy or surrogate decision maker and would likely benefit if approved by the hospital ethics committee Vital Signs Vital Signs Date Time Temp Pulse Resp B/P (MAP) Pulse Ox O2 Delivery O2 Flow Rate FiO2 08/26/21 06:00 97.7 73 17 97 Room Air 08/25/21 08:41 140/82 (101) Home Medications Current Medications Current Medications Medications (Trade) Dose Ordered Sig/Nayan Route PRN Reason Start Time Stop Time Status Last Admin Dose Admin Acetaminophen (Tylenol Tab) 650 mg Q4H PRN PO MILD PAIN or TEMP > 101 08/20/21 22:40 08/25/21 15:10 Al Hydrox/Mg Hydrox/Simethicone (Mylanta) 30 ml DAILY PRN PO DYSPEPSIA 08/20/21 22:40 Aripiprazole (AbiLIFY) 2 mg QHS PO 08/20/21 21:00 08/25/21 20:32 Citalopram Hydrobromide (CeleXA) 20 mg QHS PO 08/20/21 21:00 08/25/21 20:32 Enoxaparin Sodium (Lovenox) 30 mg DAILY SC 08/21/21 09:00 08/25/21 09:18 Enoxaparin Sodium (Lovenox) 40 mg DAILY SC 08/21/21 09:00 08/21/21 00:41 DC Haloperidol (Haldol) 2 mg Q6HP PRN IV AGITATION 08/21/21 18:30 08/23/21 11:42 DC 08/22/21 14:37 Home Med (Home Med List Complete!) ASDIRECTED XX 08/20/21 23:40 08/21/21 00:00 DC Magnesium Hydroxide (Milk Of Magnesia) 30 ml DAILY PRN PO CONSTIPATION 08/20/21 22:40 Memantine (Namenda) 10 mg BID PO 08/20/21 21:00 08/25/21 20:32 Nystatin (Mycostatin Powder, Nystop) apply to affected area... BID TOP 08/21/21 21:00 08/25/21 20:32 Quetiapine Fumarate (SEROquel) 12.5 mg QHS PO 08/23/21 21:00 08/23/21 16:32 DC Quetiapine Fumarate (SEROquel) 12.5 mg QHS PO 08/24/21 21:00 08/25/21 20:31 Scheduled Aripiprazole (Abilify) 2 Mg Tablet, 2 MG PO QHS, (Reported) Citalopram Hydrobromide (Citalopram HBr) 20 Mg Tablet, 20 MG PO QHS, (Reported) Memantine HCl (Memantine HCl) 10 Mg Tablet, 10 MG PO BID, (Reported) Allergies Coded Allergies: Penicillins (Verified Allergy, Mild, RASH, 08/20/21) Quinolones (Verified Allergy, Unknown, 09/10/20) prednisone (Verified Allergy, Unknown, 09/10/20) Sulfa (Sulfonamide Antibiotics) (Verified Adverse Reaction, Intermediate, FLUID RETENTION, 09/10/20) MANOHAR SAM MD Aug 26, 2021 08:09
[2021-08-26] MEDS: ACETAMINOPHEN TAB 650MG DOSE (2X325MG) PO PRN ×2 (10:27→17:58)
[2021-08-26] MEDS: ENOXAPARIN 30MG/0.3ML SYRINGE (J1650 PER 10MG) SC SCH (10:27)
[2021-08-26] MEDS: MEMANTINE 5MG TABLET (NAMENDA) PO SCH ×2 (10:27→20:19)
[2021-08-26] MEDS: NYSTATIN 100,000 UNITS/GM TOPICAL PWD 15 GM TOP SCH ×2 (10:33→20:19)
[2021-08-26] MEDS: ARIPiprazole 2 MG TAB PO SCH (20:18)
[2021-08-26] MEDS: QUEtiapine FUMARATE 12.5 MG HALF-TAB PO SCH (20:19)
[2021-08-26] MEDS: CitaloPRAM (CeleXA) 20 MG TAB PO SCH (20:19)
[2021-08-27 06:00] VITALS: BP 184/89
[2021-08-27] MEDS: ENOXAPARIN 30MG/0.3ML SYRINGE (J1650 PER 10MG) SC SCH (09:22)
[2021-08-27] MEDS: MEMANTINE 5MG TABLET (NAMENDA) PO SCH ×2 (09:22→20:18)
[2021-08-27] MEDS: NYSTATIN 100,000 UNITS/GM TOPICAL PWD 15 GM TOP SCH ×2 (09:22→20:18)
[2021-08-27] MEDS: QUEtiapine FUMARATE 12.5 MG HALF-TAB PO SCH (20:17)
[2021-08-27] MEDS: CitaloPRAM (CeleXA) 20 MG TAB PO SCH (20:17)
[2021-08-27] MEDS: ARIPiprazole 2 MG TAB PO SCH (20:18)
[2021-08-28 06:00] VITALS: BP 136/71
[2021-08-28] MEDS: MEMANTINE 5MG TABLET (NAMENDA) PO SCH ×2 (08:35→20:15)
[2021-08-28] MEDS: ENOXAPARIN 30MG/0.3ML SYRINGE (J1650 PER 10MG) SC SCH (08:35)
[2021-08-28] MEDS: NYSTATIN 100,000 UNITS/GM TOPICAL PWD 15 GM TOP SCH ×2 (08:40→20:15)
[2021-08-28] MEDS: QUEtiapine FUMARATE 25 MG TAB PO SCH ×2 (20:15→20:17)
[2021-08-28] MEDS: ARIPiprazole 2 MG TAB PO SCH (20:15)
[2021-08-28] MEDS: CitaloPRAM (CeleXA) 20 MG TAB PO SCH (20:15)
[2021-08-29 06:00] VITALS: BP 131/62
[2021-08-29] MEDS: MEMANTINE 5MG TABLET (NAMENDA) PO SCH ×2 (08:20→20:08)
[2021-08-29] MEDS: ENOXAPARIN 30MG/0.3ML SYRINGE (J1650 PER 10MG) SC SCH (08:21)
[2021-08-29] MEDS: NYSTATIN 100,000 UNITS/GM TOPICAL PWD 15 GM TOP SCH ×2 (08:22→20:10)
[2021-08-29] MEDS: ACETAMINOPHEN TAB 650MG DOSE (2X325MG) PO PRN ×2 (12:52→20:09)
[2021-08-29] MEDS: SODIUM CHLORIDE NASAL 0.65% SPRAY BTL (OCEAN) SCH (20:08)
[2021-08-29] MEDS: QUEtiapine FUMARATE 25 MG TAB PO SCH (20:09)
[2021-08-29] MEDS: RAMELTEON 8 MG TAB (ROZEREM) PO PRN (20:09)
[2021-08-29] MEDS: ARIPiprazole 2 MG TAB PO SCH (20:09)
[2021-08-29] MEDS: CitaloPRAM (CeleXA) 20 MG TAB PO SCH (20:09)
[2021-08-30 06:00] VITALS: BP 133/57
[2021-08-30] MEDS: ENOXAPARIN 30MG/0.3ML SYRINGE (J1650 PER 10MG) SC SCH (08:02)
[2021-08-30] MEDS: MEMANTINE 5MG TABLET (NAMENDA) PO SCH ×2 (08:02→20:03)
[2021-08-30] MEDS: NYSTATIN 100,000 UNITS/GM TOPICAL PWD 15 GM TOP SCH ×2 (08:03→20:03)
[2021-08-30] MEDS: SODIUM CHLORIDE NASAL 0.65% SPRAY BTL (OCEAN) SCH ×2 (08:03→20:03)
[2021-08-30] MEDS: ACETAMINOPHEN TAB 650MG DOSE (2X325MG) PO PRN (12:09)
[2021-08-30] MEDS: CitaloPRAM (CeleXA) 20 MG TAB PO SCH (20:03)
[2021-08-30] MEDS: QUEtiapine FUMARATE 25 MG TAB PO SCH (20:03)
[2021-08-30] MEDS: ARIPiprazole 2 MG TAB PO SCH (20:04)
[2021-08-31 06:00] VITALS: BP 146/74
[2021-08-31] MEDS: MEMANTINE 5MG TABLET (NAMENDA) PO SCH ×2 (08:14→20:04)
[2021-08-31] MEDS: ENOXAPARIN 30MG/0.3ML SYRINGE (J1650 PER 10MG) SC SCH (08:14)
[2021-08-31] MEDS: NYSTATIN 100,000 UNITS/GM TOPICAL PWD 15 GM TOP SCH ×2 (08:14→20:04)
[2021-08-31] MEDS: SODIUM CHLORIDE NASAL 0.65% SPRAY BTL (OCEAN) SCH ×2 (08:14→20:04)
--- NOTE | 2021-08-31 15:42 | IPNPDOC ---
Text Note Date of Service The patient was seen on 08/31/21. NOTE Subjective: No new acute events overnight. Patient pleasantly confused not oriented in time and place Objective: GENERAL APPEARANCE: NAD HEENT: no scleral icterus, no JVD, EOMI CARDIOVASCULAR: S1S2 LUNGS: Diminished lung sounds bilaterally ABDOMEN: soft & not tender w palpation MUSCULOSKELETAL: no cyanosis, no swelling INTEGUMENT: no generalized pallor NEUROLOGICAL: cranial nerve function from 2-12 intact, follows commands, speech not dysarthric A/P: 85 yo female with dementia whos caregiver is hospitalized, patient was brought to the ER by neighbors, found to have UTI. #Cystitis w hematuria Patient received course of antibiotic therapy. Dysuria resolved #dementia Continue home meds Await placement #obesity - complicates care #DVT prophylaxis with Lovenox Dispo: pending placement VS,Fishbone, I+O VS, Fishbone, I+O Vital Signs Date Time Temp Pulse Resp B/P (MAP) Pulse Ox O2 Delivery O2 Flow Rate FiO2 08/31/21 06:00 97.2 56 16 146/74 (98) 96 Room Air I&O- Last 24 Hours up to 6 AM 08/31/21 06:00 Intake Total 960 ml Output Total 250 ml Balance 710 ml JM PALOMARES DO Aug 31, 2021 15:42
[2021-08-31 16:25] LABS: BASO # 0.1 10^3/uL (0.0-0.2); BASO % 0.9 % (0.0-1.0); EOS # 0.3 10^3/uL (0.0-0.5); EOS % 2.6 % (0.0-3.0); HEMATOCRIT 43.2 % (36.0-47.0); LYMPH # 1.7 10^3/uL (1.5-5.0); LYMPH % 17.5 % (24.0-44.0); MEAN CORPUSCULAR HEMOGLOBIN 29.2 pg (27.0-33.0); MEAN CORPUSCULAR HGB CONC 32.4 g/dl (32.0-36.5); MONO % 10.2 % (2.0-8.0); NEUTROPHILS # 6.5 10^3/uL (1.5-8.5); NEUTROPHILS % 68.1 % (36.0-66.0); PLATELET COUNT, AUTOMATED 274 10^3/uL (150-450); WHITE BLOOD COUNT 9.5 10^3/uL (4.0-10.0)
[2021-08-31 16:48] LABS: ALBUMIN 3.7 GM/DL (3.2-5.2); BILIRUBIN,TOTAL 0.4 MG/DL (0.2-1.0); CALCIUM LEVEL 9.8 MG/DL (8.8-10.2); CREATININE FOR GFR 1.22 MG/DL (0.55-1.30); GLOMERULAR FILTRATION RATE 44.6 (>32); MAGNESIUM LEVEL 2.2 MG/DL (1.8-2.4); POTASSIUM SERUM 4.3 MEQ/L (3.5-5.1); TOTAL PROTEIN 7.9 GM/DL (6.4-8.2)
[2021-08-31] MEDS: RAMELTEON 8 MG TAB (ROZEREM) PO PRN (20:04)
[2021-08-31] MEDS: QUEtiapine FUMARATE 25 MG TAB PO SCH (20:04)
[2021-08-31] MEDS: ARIPiprazole 2 MG TAB PO SCH (20:04)
[2021-08-31] MEDS: CitaloPRAM (CeleXA) 20 MG TAB PO SCH (20:04)
[2021-09-01 06:00] VITALS: BP 132/78
[2021-09-01] MEDS: MEMANTINE 5MG TABLET (NAMENDA) PO SCH ×2 (08:44→20:00)
[2021-09-01] MEDS: ENOXAPARIN 30MG/0.3ML SYRINGE (J1650 PER 10MG) SC SCH (08:44)
[2021-09-01] MEDS: SODIUM CHLORIDE NASAL 0.65% SPRAY BTL (OCEAN) SCH ×2 (08:45→20:00)
[2021-09-01] MEDS: NYSTATIN 100,000 UNITS/GM TOPICAL PWD 15 GM TOP SCH ×2 (08:45→20:00)
[2021-09-01] MEDS: QUEtiapine FUMARATE 25 MG TAB PO SCH (20:00)
[2021-09-01] MEDS: ARIPiprazole 2 MG TAB PO SCH (20:00)
[2021-09-01] MEDS: RAMELTEON 8 MG TAB (ROZEREM) PO PRN (20:00)
[2021-09-01] MEDS: CitaloPRAM (CeleXA) 20 MG TAB PO SCH (20:00)
[2021-09-01] MEDS: ACETAMINOPHEN TAB 650MG DOSE (2X325MG) PO PRN (20:04)
[2021-09-02 06:00] VITALS: BP 155/78
[2021-09-02] MEDS: SODIUM CHLORIDE NASAL 0.65% SPRAY BTL (OCEAN) SCH ×2 (08:47→20:45)
[2021-09-02] MEDS: MEMANTINE 5MG TABLET (NAMENDA) PO SCH ×2 (08:47→20:45)
[2021-09-02] MEDS: ENOXAPARIN 30MG/0.3ML SYRINGE (J1650 PER 10MG) SC SCH (08:48)
[2021-09-02] MEDS: NYSTATIN 100,000 UNITS/GM TOPICAL PWD 15 GM TOP SCH ×2 (08:48→20:44)
[2021-09-02] MEDS: CitaloPRAM (CeleXA) 20 MG TAB PO SCH (20:45)
[2021-09-02] MEDS: ARIPiprazole 2 MG TAB PO SCH (20:45)
[2021-09-02] MEDS: QUEtiapine FUMARATE 25 MG TAB PO SCH (20:45)
[2021-09-03 06:00] VITALS: BP 157/71
[2021-09-03 08:00] VITALS: BP 130/58
[2021-09-03] MEDS: MEMANTINE 5MG TABLET (NAMENDA) PO SCH ×2 (09:48→20:29)
[2021-09-03] MEDS: ACETAMINOPHEN TAB 650MG DOSE (2X325MG) PO PRN (09:49)
[2021-09-03] MEDS: ENOXAPARIN 30MG/0.3ML SYRINGE (J1650 PER 10MG) SC SCH (09:50)
[2021-09-03] MEDS: NYSTATIN 100,000 UNITS/GM TOPICAL PWD 15 GM TOP SCH ×2 (09:51→20:30)
[2021-09-03] MEDS: SODIUM CHLORIDE NASAL 0.65% SPRAY BTL (OCEAN) SCH ×2 (09:51→20:30)
[2021-09-03 10:00] VITALS: BP 140/80
[2021-09-03 14:45] VITALS: BP 123/60
[2021-09-03] MEDS: ARIPiprazole 2 MG TAB PO SCH (20:29)
[2021-09-03] MEDS: QUEtiapine FUMARATE 25 MG TAB PO SCH (20:30)
[2021-09-03] MEDS: CitaloPRAM (CeleXA) 20 MG TAB PO SCH (20:30)
[2021-09-03] MEDS: RAMELTEON 8 MG TAB (ROZEREM) PO PRN (23:14)
[2021-09-04 06:00] VITALS: BP 123/60
[2021-09-04] MEDS: ENOXAPARIN 30MG/0.3ML SYRINGE (J1650 PER 10MG) SC SCH (09:38)
[2021-09-04] MEDS: NYSTATIN 100,000 UNITS/GM TOPICAL PWD 15 GM TOP SCH ×2 (09:38→20:36)
[2021-09-04] MEDS: SODIUM CHLORIDE NASAL 0.65% SPRAY BTL (OCEAN) SCH ×2 (09:38→20:36)
[2021-09-04] MEDS: MEMANTINE 5MG TABLET (NAMENDA) PO SCH ×2 (09:38→20:36)
[2021-09-04] MEDS: QUEtiapine FUMARATE 25 MG TAB PO SCH (20:36)
[2021-09-04] MEDS: CitaloPRAM (CeleXA) 20 MG TAB PO SCH (20:36)
[2021-09-04] MEDS: ARIPiprazole 2 MG TAB PO SCH (20:36)
[2021-09-04] MEDS: ACETAMINOPHEN TAB 650MG DOSE (2X325MG) PO PRN (21:29)
[2021-09-05 06:00] VITALS: BP 134/64
[2021-09-05] MEDS: MEMANTINE 5MG TABLET (NAMENDA) PO SCH ×2 (10:03→20:41)
[2021-09-05] MEDS: NYSTATIN 100,000 UNITS/GM TOPICAL PWD 15 GM TOP SCH ×2 (10:03→20:41)
[2021-09-05] MEDS: SODIUM CHLORIDE NASAL 0.65% SPRAY BTL (OCEAN) SCH ×2 (10:03→20:41)
[2021-09-05] MEDS: ENOXAPARIN 30MG/0.3ML SYRINGE (J1650 PER 10MG) SC SCH (10:03)
[2021-09-05] MEDS: ARIPiprazole 2 MG TAB PO SCH (20:41)
[2021-09-05] MEDS: QUEtiapine FUMARATE 25 MG TAB PO SCH (20:41)
[2021-09-05] MEDS: CitaloPRAM (CeleXA) 20 MG TAB PO SCH (20:41)
[2021-09-06 06:00] VITALS: BP 140/75
[2021-09-06] MEDS: SODIUM CHLORIDE NASAL 0.65% SPRAY BTL (OCEAN) SCH ×2 (09:00→20:06)
[2021-09-06] MEDS: NYSTATIN 100,000 UNITS/GM TOPICAL PWD 15 GM TOP SCH ×2 (09:00→20:06)
[2021-09-06] MEDS: ENOXAPARIN 30MG/0.3ML SYRINGE (J1650 PER 10MG) SC SCH (12:27)
[2021-09-06] MEDS: MEMANTINE 5MG TABLET (NAMENDA) PO SCH ×2 (12:27→20:06)
[2021-09-06] MEDS: CitaloPRAM (CeleXA) 20 MG TAB PO SCH (20:06)
[2021-09-06] MEDS: QUEtiapine FUMARATE 25 MG TAB PO SCH (20:06)
[2021-09-06] MEDS: ARIPiprazole 2 MG TAB PO SCH (20:06)
[2021-09-06] MEDS: RAMELTEON 8 MG TAB (ROZEREM) PO PRN (21:33)
[2021-09-07] MEDS: SODIUM CHLORIDE NASAL 0.65% SPRAY BTL (OCEAN) SCH ×2 (08:47→20:30)
[2021-09-07] MEDS: MEMANTINE 5MG TABLET (NAMENDA) PO SCH ×2 (08:47→20:28)
[2021-09-07] MEDS: NYSTATIN 100,000 UNITS/GM TOPICAL PWD 15 GM TOP SCH ×2 (08:47→20:29)
--- NOTE | 2021-09-07 14:35 | IPNPDOC ---
Text Note Date of Service The patient was seen on 09/07/21. NOTE Subjective:Patient pleasantly confused not oriented in time and place. Objective: GENERAL APPEARANCE: NAD HEENT: no scleral icterus, no JVD, EOMI CARDIOVASCULAR: S1S2 LUNGS: Diminished lung sounds bilaterally ABDOMEN: soft & not tender w palpation MUSCULOSKELETAL: no cyanosis, no swelling INTEGUMENT: no generalized pallor NEUROLOGICAL: cranial nerve function from 2-12 intact, follows commands, speech not dysarthric A/P: 85 yo female with dementia whos caregiver is hospitalized, patient was brought to the ER by neighbors, found to have UTI. #Cystitis w hematuria Patient received course of antibiotic therapy. Dysuria resolved #dementia Continue home meds Await placement #obesity - complicates care #DVT prophylaxis: Patient actively walking during the day I discontinue anticoagulation subcutaneously with Lovenox Dispo: pending placement VS,Fishbone, I+O VS, Fishbone, I+O Vital Signs Date Time Temp Pulse Resp B/P (MAP) Pulse Ox O2 Delivery O2 Flow Rate FiO2 09/06/21 06:00 97.2 82 20 140/75 (96) 96 Room Air I&O- Last 24 Hours up to 6 AM 09/07/21 06:00 Intake Total 2009 ml Output Total 500 ml Balance 1510 ml JM PALOMARES DO Sep 07, 2021 14:35
[2021-09-07] MEDS: QUEtiapine FUMARATE 25 MG TAB PO SCH (20:28)
[2021-09-07] MEDS: ACETAMINOPHEN TAB 650MG DOSE (2X325MG) PO PRN (20:28)
[2021-09-07] MEDS: CitaloPRAM (CeleXA) 20 MG TAB PO SCH (20:28)
[2021-09-07] MEDS: ARIPiprazole 2 MG TAB PO SCH (20:29)
[2021-09-08] MEDS: MEMANTINE 5MG TABLET (NAMENDA) PO SCH ×2 (08:15→22:10)
[2021-09-08] MEDS: SODIUM CHLORIDE NASAL 0.65% SPRAY BTL (OCEAN) SCH ×2 (08:15→22:11)
[2021-09-08] MEDS: NYSTATIN 100,000 UNITS/GM TOPICAL PWD 15 GM TOP SCH ×2 (08:15→22:11)
[2021-09-08] MEDS: RAMELTEON 8 MG TAB (ROZEREM) PO PRN (22:10)
[2021-09-08] MEDS: ARIPiprazole 2 MG TAB PO SCH (22:10)
[2021-09-08] MEDS: CitaloPRAM (CeleXA) 20 MG TAB PO SCH (22:11)
[2021-09-08] MEDS: QUEtiapine FUMARATE 25 MG TAB PO SCH (22:11)
[2021-09-09 06:00] VITALS: BP 158/74
[2021-09-09] MEDS: SODIUM CHLORIDE NASAL 0.65% SPRAY BTL (OCEAN) SCH ×2 (11:47→21:00)
[2021-09-09] MEDS: MEMANTINE 5MG TABLET (NAMENDA) PO SCH ×2 (11:47→19:59)
[2021-09-09] MEDS: NYSTATIN 100,000 UNITS/GM TOPICAL PWD 15 GM TOP SCH ×2 (11:49→21:00)
[2021-09-09] MEDS: MAALOX 30 ML SUSP *UDC PO PRN (13:48)
[2021-09-09 15:04] VITALS: BP 132/80
[2021-09-09] MEDS: QUEtiapine FUMARATE 25 MG TAB PO SCH (19:58)
[2021-09-09] MEDS: RAMELTEON 8 MG TAB (ROZEREM) PO PRN (19:58)
[2021-09-09] MEDS: ARIPiprazole 2 MG TAB PO SCH (19:58)
[2021-09-09] MEDS: ACETAMINOPHEN TAB 650MG DOSE (2X325MG) PO PRN (19:59)
[2021-09-09] MEDS: CitaloPRAM (CeleXA) 20 MG TAB PO SCH (19:59)
[2021-09-09] MEDS ORDERED: hydrOXYzine 50 MG TAB PO ONE (20:20)
[2021-09-09] MEDS ORDERED: OLANZapine INTRAMUSCULAR 10MG VIAL IM PRN (20:25)
[2021-09-10 06:00] VITALS: BP 154/72
[2021-09-10] MEDS: MEMANTINE 5MG TABLET (NAMENDA) PO SCH ×2 (08:41→21:46)
[2021-09-10] MEDS: SODIUM CHLORIDE NASAL 0.65% SPRAY BTL (OCEAN) SCH ×2 (08:42→21:46)
[2021-09-10] MEDS: NYSTATIN 100,000 UNITS/GM TOPICAL PWD 15 GM TOP SCH ×2 (08:42→21:45)
[2021-09-10 16:06] VITALS: BP 116/70
[2021-09-10] MEDS: RAMELTEON 8 MG TAB (ROZEREM) PO PRN (21:45)
[2021-09-10] MEDS: CitaloPRAM (CeleXA) 20 MG TAB PO SCH (21:45)
[2021-09-10] MEDS: QUEtiapine FUMARATE 25 MG TAB PO SCH (21:45)
[2021-09-10] MEDS: ARIPiprazole 2 MG TAB PO SCH (21:46)
[2021-09-11 06:00] VITALS: BP 112/56
[2021-09-11] MEDS: MEMANTINE 5MG TABLET (NAMENDA) PO SCH ×2 (08:36→20:35)
[2021-09-11] MEDS: NYSTATIN 100,000 UNITS/GM TOPICAL PWD 15 GM TOP SCH ×2 (08:36→20:35)
[2021-09-11] MEDS: SODIUM CHLORIDE NASAL 0.65% SPRAY BTL (OCEAN) SCH ×2 (08:36→20:35)
[2021-09-11] MEDS: ACETAMINOPHEN TAB 650MG DOSE (2X325MG) PO PRN (14:23)
--- NOTE | 2021-09-11 17:58 | IPNPDOC ---
Subjective Date Seen The patient was seen on 09/08/21. Subjective Chief Complaint/HPI Patient seen at bedside calm and cooperative very pleasant . Did not offer any complaints. Objective Physical Examination General Exam: Positive: Alert, Cooperative, No Acute Distress Eye Exam: Positive: PERRLA, Conjunctiva & lids normal, EOMI; Negative: Sclera icteric Chest Exam: Positive: Clear to auscultation, Normal air movement Heart Exam: Positive: Rate Normal, Regular Rhythm, Normal S1, Normal S2; Negative: Murmurs, Rubs Abdomen Exam: Positive: Normal bowel sounds, Soft; Negative: Tenderness, Hepatospenomegaly Extremity Exam: Negative: Clubbing, Cyanosis, Edema Assessment /Plan Assessment , an 85 yr old F with dementia who lives with her niece (who is her caregiver) was found wondering on the streets by [employer] multiple times. Unfortunately her niece had a stroke and was hospitalized. The patient was brought to the ER by neighbors. She was found to have a cystitis which has been treated. Now she is waiting for long-term placement. Dementia Continue memantine, Abilify, Seroquel, Celexa Awaiting placement Obesity BMI of 33 point Dispo: pending Guardianship establishment and then intermediate placement. Plan/VTE VTE Prophylaxis Ordered?: No (Freely ambulatory) VS, I&O, 24H, Fishbone Vital Signs/I&O Vital Signs Date Time Temp Pulse Resp B/P (MAP) Pulse Ox O2 Delivery O2 Flow Rate FiO2 09/11/21 09:00 Room Air 09/11/21 06:00 97.3 65 16 112/56 (74) 95 I&O- Last 24 Hours up to 6 AM 09/11/21 06:00 Intake Total 360 ml Output Total 300 ml Balance 60 ml Beth Mccrary MD Sep 11, 2021 17:58
[2021-09-11] MEDS: QUEtiapine FUMARATE 25 MG TAB PO SCH (20:34)
[2021-09-11] MEDS: CitaloPRAM (CeleXA) 20 MG TAB PO SCH (20:35)
[2021-09-11] MEDS: RAMELTEON 8 MG TAB (ROZEREM) PO PRN (20:35)
[2021-09-11] MEDS: ARIPiprazole 2 MG TAB PO SCH (20:35)
[2021-09-12 06:00] VITALS: BP 125/62
[2021-09-12] MEDS: SODIUM CHLORIDE NASAL 0.65% SPRAY BTL (OCEAN) SCH ×2 (09:12→20:43)
[2021-09-12] MEDS: NYSTATIN 100,000 UNITS/GM TOPICAL PWD 15 GM TOP SCH ×2 (09:12→20:43)
[2021-09-12] MEDS: MEMANTINE 5MG TABLET (NAMENDA) PO SCH ×2 (09:13→20:43)
[2021-09-12] MEDS: ACETAMINOPHEN TAB 650MG DOSE (2X325MG) PO PRN ×2 (09:39→20:46)
[2021-09-12] MEDS: CitaloPRAM (CeleXA) 20 MG TAB PO SCH (20:43)
[2021-09-12] MEDS: ARIPiprazole 2 MG TAB PO SCH (20:43)
[2021-09-12] MEDS: QUEtiapine FUMARATE 25 MG TAB PO SCH (20:43)
[2021-09-12] MEDS: RAMELTEON 8 MG TAB (ROZEREM) PO PRN (20:45)
[2021-09-13 06:00] VITALS: BP 140/67
[2021-09-13] MEDS: SODIUM CHLORIDE NASAL 0.65% SPRAY BTL (OCEAN) SCH ×2 (09:43→20:55)
[2021-09-13] MEDS: MEMANTINE 5MG TABLET (NAMENDA) PO SCH ×2 (09:43→20:56)
[2021-09-13] MEDS: NYSTATIN 100,000 UNITS/GM TOPICAL PWD 15 GM TOP SCH ×2 (09:43→20:55)
[2021-09-13] MEDS: CitaloPRAM (CeleXA) 20 MG TAB PO SCH (20:55)
[2021-09-13] MEDS: RAMELTEON 8 MG TAB (ROZEREM) PO PRN (20:55)
[2021-09-13] MEDS: QUEtiapine FUMARATE 25 MG TAB PO SCH (20:56)
[2021-09-13] MEDS: ACETAMINOPHEN TAB 650MG DOSE (2X325MG) PO PRN (20:56)
[2021-09-13] MEDS: ARIPiprazole 2 MG TAB PO SCH (20:56)
[2021-09-14 06:00] VITALS: BP 149/67
[2021-09-14] MEDS: MEMANTINE 5MG TABLET (NAMENDA) PO SCH ×2 (07:57→20:05)
[2021-09-14] MEDS: SODIUM CHLORIDE NASAL 0.65% SPRAY BTL (OCEAN) SCH ×2 (07:57→20:05)
[2021-09-14] MEDS: NYSTATIN 100,000 UNITS/GM TOPICAL PWD 15 GM TOP SCH ×2 (07:58→20:06)
[2021-09-14 14:00] VITALS: BP 129/57
[2021-09-14] MEDS: ARIPiprazole 2 MG TAB PO SCH (20:05)
[2021-09-14] MEDS: CitaloPRAM (CeleXA) 20 MG TAB PO SCH (20:05)
[2021-09-14] MEDS: RAMELTEON 8 MG TAB (ROZEREM) PO PRN (20:05)
[2021-09-14] MEDS: QUEtiapine FUMARATE 25 MG TAB PO SCH (20:05)
[2021-09-14] MEDS: ACETAMINOPHEN TAB 650MG DOSE (2X325MG) PO PRN (20:05)
[2021-09-15 06:00] VITALS: BP 125/58
[2021-09-15] MEDS: NYSTATIN 100,000 UNITS/GM TOPICAL PWD 15 GM TOP SCH ×2 (08:24→20:01)
[2021-09-15] MEDS: MEMANTINE 5MG TABLET (NAMENDA) PO SCH ×2 (08:24→20:00)
[2021-09-15] MEDS: SODIUM CHLORIDE NASAL 0.65% SPRAY BTL (OCEAN) SCH ×2 (08:24→20:01)
[2021-09-15] MEDS: CitaloPRAM (CeleXA) 20 MG TAB PO SCH (20:00)
[2021-09-15] MEDS: RAMELTEON 8 MG TAB (ROZEREM) PO PRN (20:00)
[2021-09-15] MEDS: QUEtiapine FUMARATE 25 MG TAB PO SCH (20:00)
[2021-09-15] MEDS: ARIPiprazole 2 MG TAB PO SCH (20:00)
[2021-09-16 05:41] VITALS: BP 130/69
[2021-09-16] MEDS: SODIUM CHLORIDE NASAL 0.65% SPRAY BTL (OCEAN) SCH ×2 (08:11→19:46)
[2021-09-16] MEDS: NYSTATIN 100,000 UNITS/GM TOPICAL PWD 15 GM TOP SCH ×2 (08:12→19:46)
[2021-09-16] MEDS: MEMANTINE 5MG TABLET (NAMENDA) PO SCH ×2 (08:12→19:45)
[2021-09-16] MEDS: QUEtiapine FUMARATE 25 MG TAB PO SCH (19:45)
[2021-09-16] MEDS: ARIPiprazole 2 MG TAB PO SCH (19:45)
[2021-09-16] MEDS: CitaloPRAM (CeleXA) 20 MG TAB PO SCH (19:45)
[2021-09-17 06:00] VITALS: BP 136/67
[2021-09-17] MEDS: SODIUM CHLORIDE NASAL 0.65% SPRAY BTL (OCEAN) SCH ×2 (10:40→20:56)
[2021-09-17] MEDS: NYSTATIN 100,000 UNITS/GM TOPICAL PWD 15 GM TOP SCH ×2 (10:40→21:10)
[2021-09-17] MEDS: MEMANTINE 5MG TABLET (NAMENDA) PO SCH ×2 (10:41→21:03)
[2021-09-17] MEDS: ARIPiprazole 2 MG TAB PO SCH (21:01)
[2021-09-17] MEDS: CitaloPRAM (CeleXA) 20 MG TAB PO SCH (21:03)
[2021-09-17] MEDS: QUEtiapine FUMARATE 25 MG TAB PO SCH (21:09)
[2021-09-18 06:00] VITALS: BP 135/69
[2021-09-18] MEDS: MEMANTINE 5MG TABLET (NAMENDA) PO SCH ×2 (09:24→20:15)
[2021-09-18] MEDS: SODIUM CHLORIDE NASAL 0.65% SPRAY BTL (OCEAN) SCH ×2 (09:24→20:15)
[2021-09-18] MEDS: NYSTATIN 100,000 UNITS/GM TOPICAL PWD 15 GM TOP SCH ×2 (09:25→20:16)
[2021-09-18] MEDS: CitaloPRAM (CeleXA) 20 MG TAB PO SCH (20:15)
[2021-09-18] MEDS: QUEtiapine FUMARATE 25 MG TAB PO SCH (20:15)
[2021-09-18] MEDS: ARIPiprazole 2 MG TAB PO SCH (20:15)
[2021-09-19 06:00] VITALS: BP 140/80
[2021-09-19] MEDS: MEMANTINE 5MG TABLET (NAMENDA) PO SCH ×2 (08:17→20:08)
[2021-09-19] MEDS: SODIUM CHLORIDE NASAL 0.65% SPRAY BTL (OCEAN) SCH ×2 (08:17→20:09)
[2021-09-19] MEDS: NYSTATIN 100,000 UNITS/GM TOPICAL PWD 15 GM TOP SCH ×2 (08:18→20:09)
[2021-09-19] MEDS: CitaloPRAM (CeleXA) 20 MG TAB PO SCH (20:08)
[2021-09-19] MEDS: ARIPiprazole 2 MG TAB PO SCH (20:08)
[2021-09-19] MEDS: QUEtiapine FUMARATE 25 MG TAB PO SCH (20:08)
[2021-09-20 06:00] VITALS: BP 131/60
[2021-09-20] MEDS: NYSTATIN 100,000 UNITS/GM TOPICAL PWD 15 GM TOP SCH ×2 (09:53→20:02)
[2021-09-20] MEDS: SODIUM CHLORIDE NASAL 0.65% SPRAY BTL (OCEAN) SCH ×2 (09:53→20:01)
[2021-09-20] MEDS: MEMANTINE 5MG TABLET (NAMENDA) PO SCH ×2 (09:54→20:01)
[2021-09-20] MEDS: ARIPiprazole 2 MG TAB PO SCH (20:00)
[2021-09-20] MEDS: CitaloPRAM (CeleXA) 20 MG TAB PO SCH (20:01)
[2021-09-20] MEDS: QUEtiapine FUMARATE 25 MG TAB PO SCH (20:01)
[2021-09-20] MEDS: RAMELTEON 8 MG TAB (ROZEREM) PO PRN (20:01)
[2021-09-21 06:00] VITALS: BP 127/57
[2021-09-21] MEDS: SODIUM CHLORIDE NASAL 0.65% SPRAY BTL (OCEAN) SCH ×2 (09:09→20:00)
[2021-09-21] MEDS: NYSTATIN 100,000 UNITS/GM TOPICAL PWD 15 GM TOP SCH ×2 (09:09→20:00)
[2021-09-21] MEDS: MEMANTINE 5MG TABLET (NAMENDA) PO SCH ×2 (09:14→20:00)
[2021-09-21] MEDS: MAALOX 30 ML SUSP *UDC PO PRN (17:38)
[2021-09-21] MEDS: RAMELTEON 8 MG TAB (ROZEREM) PO PRN (17:38)
--- NOTE | 2021-09-21 19:56 | IPNPDOC ---
Date Seen The patient was seen on 09/21/21. Progress Note Subjective No distress. Denies dysuria urgency frequency fever chills flank pain No acute issues per nursing Objective Physical Examination Vital signs see below General Exam: Sitting on a chair asleep but arousable answers questions appropriately No distress. Awake alert oriented to herself only HEENT no JVD thyromegaly moist mucous membranes no cervical lymphadenopathy Chest Exam: Air entry is equal bilaterally clear to auscultation Heart Exam: S1-S2 regular rate rhythm Abdomen Exam: Positive bowel sounds soft nontender nondistended Extremity Exam: Negative: Clubbing, Cyanosis, Edema Assessment /Plan 85-year-old female with history of dementia cared for by her niece with been hospitalized for stroke was found wandering around the streets and brought in for evaluation. She was found to have cystitis completed antibiotics and currently waiting for long-term placement. She has not had any other acute medical issues during this admission. Dementia-needing placement Cystitis-completed antibiotics Depression-seen by psychiatrist. Continue current meds Crohn's disease-asymptomatic Disposition: Awaiting long-term placement VS, I&O, 24H, Fishbone Vital Signs/I&O Vital Signs Date Time Temp Pulse Resp B/P (MAP) Pulse Ox O2 Delivery O2 Flow Rate FiO2 09/21/21 06:00 98.0 80 16 127/57 (80) 96 Room Air I&O- Last 24 Hours up to 6 AM 09/21/21 06:00 Intake Total 120 ml Output Total 0 ml Balance 120 ml MARIANN SHEPPARD MD Sep 21, 2021 19:56
[2021-09-21] MEDS: CitaloPRAM (CeleXA) 20 MG TAB PO SCH (20:00)
[2021-09-21] MEDS: ARIPiprazole 2 MG TAB PO SCH (20:00)
[2021-09-21] MEDS: QUEtiapine FUMARATE 25 MG TAB PO SCH (20:00)
[2021-09-22 06:00] VITALS: BP 157/76
[2021-09-22] MEDS: MEMANTINE 5MG TABLET (NAMENDA) PO SCH ×2 (09:00→20:00)
[2021-09-22] MEDS: SODIUM CHLORIDE NASAL 0.65% SPRAY BTL (OCEAN) SCH ×2 (09:01→20:01)
[2021-09-22] MEDS: NYSTATIN 100,000 UNITS/GM TOPICAL PWD 15 GM TOP SCH ×2 (09:01→20:01)
[2021-09-22 10:40] VITALS: BP 136/67
[2021-09-22] MEDS: ACETAMINOPHEN TAB 650MG DOSE (2X325MG) PO PRN (11:09)
[2021-09-22] MEDS: ARIPiprazole 2 MG TAB PO SCH (20:00)
[2021-09-22] MEDS: QUEtiapine FUMARATE 25 MG TAB PO SCH (20:00)
[2021-09-22] MEDS: CitaloPRAM (CeleXA) 20 MG TAB PO SCH (20:00)
[2021-09-23 06:00] VITALS: BP 146/72
[2021-09-23] MEDS: SODIUM CHLORIDE NASAL 0.65% SPRAY BTL (OCEAN) SCH ×2 (08:38→20:42)
[2021-09-23] MEDS: MEMANTINE 5MG TABLET (NAMENDA) PO SCH ×2 (08:38→20:34)
[2021-09-23] MEDS: NYSTATIN 100,000 UNITS/GM TOPICAL PWD 15 GM TOP SCH ×2 (08:39→20:37)
[2021-09-23] MEDS: REMEDY PHYTOPLEX Z-GUARD PASTE 113GM TUBE (FROM STOREROOM PRODUCT) TOP SCH ×3 (08:39→20:44)
[2021-09-23] MEDS: OLANZapine 5 MG TAB PO PRN (15:18)
[2021-09-23] MEDS: ARIPiprazole 2 MG TAB PO SCH (20:34)
[2021-09-23] MEDS: QUEtiapine FUMARATE 25 MG TAB PO SCH (20:34)
[2021-09-23] MEDS: CitaloPRAM (CeleXA) 20 MG TAB PO SCH (20:34)
[2021-09-23] MEDS: RAMELTEON 8 MG TAB (ROZEREM) PO PRN (20:43)
[2021-09-24 06:00] VITALS: BP 130/60
[2021-09-24] MEDS: REMEDY PHYTOPLEX Z-GUARD PASTE 113GM TUBE (FROM STOREROOM PRODUCT) TOP SCH (09:07)
[2021-09-24] MEDS: NYSTATIN 100,000 UNITS/GM TOPICAL PWD 15 GM TOP SCH (09:07)
[2021-09-24] MEDS: SODIUM CHLORIDE NASAL 0.65% SPRAY BTL (OCEAN) SCH ×2 (09:07→20:00)
[2021-09-24] MEDS: MEMANTINE 5MG TABLET (NAMENDA) PO SCH ×2 (09:07→20:01)
[2021-09-24] MEDS: NYSTATIN CREAM 15 GM TOP SCH ×2 (14:23→20:01)
[2021-09-24] MEDS: ARIPiprazole 2 MG TAB PO SCH (20:01)
[2021-09-24] MEDS: CitaloPRAM (CeleXA) 20 MG TAB PO SCH (20:01)
[2021-09-24] MEDS: QUEtiapine FUMARATE 25 MG TAB PO SCH (20:01)
[2021-09-25] MEDS: RAMELTEON 8 MG TAB (ROZEREM) PO PRN ×2 (00:27→20:03)
[2021-09-25 06:00] VITALS: BP 142/73
[2021-09-25] MEDS: MEMANTINE 5MG TABLET (NAMENDA) PO SCH ×2 (08:34→20:04)
[2021-09-25] MEDS: SODIUM CHLORIDE NASAL 0.65% SPRAY BTL (OCEAN) SCH ×2 (08:35→20:04)
[2021-09-25] MEDS: NYSTATIN CREAM 15 GM TOP SCH ×2 (08:35→20:04)
[2021-09-25] MEDS: ACETAMINOPHEN TAB 650MG DOSE (2X325MG) PO PRN (12:38)
[2021-09-25] MEDS: CitaloPRAM (CeleXA) 20 MG TAB PO SCH (20:03)
[2021-09-25] MEDS: ARIPiprazole 2 MG TAB PO SCH (20:03)
[2021-09-25] MEDS: QUEtiapine FUMARATE 25 MG TAB PO SCH (20:03)
[2021-09-26 06:00] VITALS: BP 125/54
[2021-09-26] MEDS: MEMANTINE 5MG TABLET (NAMENDA) PO SCH ×2 (08:40→20:23)
[2021-09-26] MEDS: SODIUM CHLORIDE NASAL 0.65% SPRAY BTL (OCEAN) SCH ×2 (08:41→20:24)
[2021-09-26] MEDS: NYSTATIN CREAM 15 GM TOP SCH ×2 (08:41→20:24)
[2021-09-26] MEDS: RAMELTEON 8 MG TAB (ROZEREM) PO PRN (20:23)
[2021-09-26] MEDS: ARIPiprazole 2 MG TAB PO SCH (20:23)
[2021-09-26] MEDS: CitaloPRAM (CeleXA) 20 MG TAB PO SCH (20:23)
[2021-09-26] MEDS: QUEtiapine FUMARATE 25 MG TAB PO SCH (20:23)
[2021-09-27 06:00] VITALS: BP 126/55
[2021-09-27] MEDS: MEMANTINE 5MG TABLET (NAMENDA) PO SCH ×2 (11:40→20:03)
[2021-09-27] MEDS: SODIUM CHLORIDE NASAL 0.65% SPRAY BTL (OCEAN) SCH ×2 (11:40→21:00)
[2021-09-27] MEDS: NYSTATIN CREAM 15 GM TOP SCH ×2 (11:41→21:00)
[2021-09-27] MEDS: ARIPiprazole 2 MG TAB PO SCH (20:03)
[2021-09-27] MEDS: RAMELTEON 8 MG TAB (ROZEREM) PO PRN (20:03)
[2021-09-27] MEDS: QUEtiapine FUMARATE 25 MG TAB PO SCH (20:03)
[2021-09-27] MEDS: CitaloPRAM (CeleXA) 20 MG TAB PO SCH (20:04)
[2021-09-28] MEDS: OLANZapine 5 MG TAB PO PRN ×2 (01:34→20:53)
[2021-09-28 06:00] VITALS: BP 132/56
[2021-09-28] MEDS: ACETAMINOPHEN TAB 650MG DOSE (2X325MG) PO PRN (10:47)
[2021-09-28] MEDS: NYSTATIN CREAM 15 GM TOP SCH ×2 (10:47→21:00)
[2021-09-28] MEDS: MEMANTINE 5MG TABLET (NAMENDA) PO SCH ×2 (10:47→20:53)
[2021-09-28] MEDS: SODIUM CHLORIDE NASAL 0.65% SPRAY BTL (OCEAN) SCH ×2 (10:48→20:54)
--- NOTE | 2021-09-28 15:28 | IPNPDOC ---
Text Note Date of Service The patient was seen on 09/28/21. NOTE Subjective: No any acute events overnight. Objective: GENERAL APPEARANCE: NAD HEENT: no scleral icterus, no JVD, EOMI CARDIOVASCULAR: S1S2 LUNGS: Diminished lung sounds bilaterally ABDOMEN: soft & not tender w palpation MUSCULOSKELETAL: no cyanosis, no swelling INTEGUMENT: no generalized pallor NEUROLOGICAL: cranial nerve function from 2-12 intact, follows commands, speech not dysarthric A/P: 85 yo female with dementia whos caregiver is hospitalized, patient was brought to the ER by neighbors, found to have UTI. #Cystitis w hematuria Patient received course of antibiotic therapy. Dysuria resolved #dementia Continue home meds Await placement #obesity - complicates care #DVT prophylaxis: Patient actively walking during the day I discontinue anticoagulation subcutaneously with Lovenox Dispo: pending placement VS,Fishbone, I+O VS, Fishbone, I+O Vital Signs Date Time Temp Pulse Resp B/P (MAP) Pulse Ox O2 Delivery O2 Flow Rate FiO2 09/28/21 06:00 97.6 58 16 132/56 (81) 92 Room Air I&O- Last 24 Hours up to 6 AM 09/28/21 06:00 Intake Total 1140 ml Output Total 400 ml Balance 740 ml JM PALOMARES DO Sep 28, 2021 15:28
[2021-09-28] MEDS: RAMELTEON 8 MG TAB (ROZEREM) PO PRN (20:53)
[2021-09-28] MEDS: ARIPiprazole 2 MG TAB PO SCH (20:53)
[2021-09-28] MEDS: QUEtiapine FUMARATE 25 MG TAB PO SCH (20:53)
[2021-09-28] MEDS: CitaloPRAM (CeleXA) 20 MG TAB PO SCH (20:53)
[2021-09-29 06:00] VITALS: BP 150/69
[2021-09-29] MEDS: MEMANTINE 5MG TABLET (NAMENDA) PO SCH ×2 (10:28→20:27)
[2021-09-29] MEDS: NYSTATIN CREAM 15 GM TOP SCH ×2 (10:28→20:27)
[2021-09-29] MEDS: ACETAMINOPHEN TAB 650MG DOSE (2X325MG) PO PRN (10:28)
[2021-09-29] MEDS: SODIUM CHLORIDE NASAL 0.65% SPRAY BTL (OCEAN) SCH ×2 (10:29→20:27)
[2021-09-29] MEDS: ARIPiprazole 2 MG TAB PO SCH (20:27)
[2021-09-29] MEDS: CitaloPRAM (CeleXA) 20 MG TAB PO SCH (20:27)
[2021-09-29] MEDS: QUEtiapine FUMARATE 25 MG TAB PO SCH (20:27)
[2021-09-29] MEDS: OLANZapine 5 MG TAB PO PRN (20:51)
[2021-09-30 06:00] VITALS: BP 143/76
[2021-09-30] MEDS: SODIUM CHLORIDE NASAL 0.65% SPRAY BTL (OCEAN) SCH ×2 (10:57→22:02)
[2021-09-30] MEDS: MEMANTINE 5MG TABLET (NAMENDA) PO SCH ×2 (10:57→22:03)
[2021-09-30] MEDS: NYSTATIN CREAM 15 GM TOP SCH ×2 (10:58→22:04)
[2021-09-30] MEDS: ACETAMINOPHEN TAB 650MG DOSE (2X325MG) PO PRN ×2 (11:40→22:03)
[2021-09-30] MEDS: CLOTRIMAZOLE 1% TOPICAL CREAM 30GM TOP SCH ×2 (12:03→22:03)
[2021-09-30] MEDS: RAMELTEON 8 MG TAB (ROZEREM) PO PRN (22:03)
[2021-09-30] MEDS: CitaloPRAM (CeleXA) 20 MG TAB PO SCH (22:03)
[2021-09-30] MEDS: ARIPiprazole 2 MG TAB PO SCH (22:04)
[2021-09-30] MEDS: QUEtiapine FUMARATE 25 MG TAB PO SCH (22:04)
[2021-10-01 06:00] VITALS: BP 158/78
[2021-10-01] MEDS: OLANZapine 5 MG TAB PO PRN (11:39)
[2021-10-01] MEDS: MEMANTINE 5MG TABLET (NAMENDA) PO SCH ×2 (11:40→21:30)
[2021-10-01] MEDS: SODIUM CHLORIDE NASAL 0.65% SPRAY BTL (OCEAN) SCH ×2 (11:41→21:31)
[2021-10-01] MEDS: NYSTATIN CREAM 15 GM TOP SCH ×2 (11:41→21:31)
[2021-10-01] MEDS: CLOTRIMAZOLE 1% TOPICAL CREAM 30GM TOP SCH ×2 (11:42→21:31)
[2021-10-01] MEDS: ARIPiprazole 2 MG TAB PO SCH (21:30)
[2021-10-01] MEDS: QUEtiapine FUMARATE 25 MG TAB PO SCH (21:30)
[2021-10-01] MEDS: RAMELTEON 8 MG TAB (ROZEREM) PO PRN (21:30)
[2021-10-01] MEDS: CitaloPRAM (CeleXA) 20 MG TAB PO SCH (21:31)
[2021-10-01] MEDS: ACETAMINOPHEN TAB 650MG DOSE (2X325MG) PO PRN (21:32)
[2021-10-02 06:00] VITALS: BP 131/65
[2021-10-02] MEDS: MEMANTINE 5MG TABLET (NAMENDA) PO SCH ×2 (08:37→20:29)
[2021-10-02] MEDS: SODIUM CHLORIDE NASAL 0.65% SPRAY BTL (OCEAN) SCH ×2 (08:37→20:30)
[2021-10-02] MEDS: NYSTATIN CREAM 15 GM TOP SCH ×2 (08:39→20:30)
[2021-10-02] MEDS: CLOTRIMAZOLE 1% TOPICAL CREAM 30GM TOP SCH ×2 (08:39→20:30)
[2021-10-02] MEDS: ACETAMINOPHEN TAB 650MG DOSE (2X325MG) PO PRN (17:28)
[2021-10-02] MEDS: OLANZapine 5 MG TAB PO PRN (20:29)
[2021-10-02] MEDS: CitaloPRAM (CeleXA) 20 MG TAB PO SCH (20:29)
[2021-10-02] MEDS: RAMELTEON 8 MG TAB (ROZEREM) PO PRN (20:29)
[2021-10-02] MEDS: ARIPiprazole 2 MG TAB PO SCH (20:29)
[2021-10-02] MEDS: QUEtiapine FUMARATE 25 MG TAB PO SCH (20:29)
[2021-10-03 06:45] VITALS: BP 144/64
[2021-10-03 09:20] VITALS: BP 125/60
[2021-10-03 10:00] LABS: HEMATOCRIT 36.1 % (36.0-47.0); HEMOGLOBIN 11.7 g/dl (12.0-15.5); MEAN CORPUSCULAR HEMOGLOBIN 29.5 pg (27.0-33.0); MEAN CORPUSCULAR HGB CONC 32.4 g/dl (32.0-36.5); MEAN CORPUSCULAR VOLUME 90.9 fl (80.0-96.0); PLATELET COUNT, AUTOMATED 203 10^3/uL (150-450); RED BLOOD COUNT 3.97 10^6/uL (4.00-5.40); WHITE BLOOD COUNT 9.7 10^3/uL (4.0-10.0)
[2021-10-03] MEDS: MEMANTINE 5MG TABLET (NAMENDA) PO SCH ×2 (10:06→20:03)
[2021-10-03] MEDS: SODIUM CHLORIDE NASAL 0.65% SPRAY BTL (OCEAN) SCH ×2 (10:07→20:04)
[2021-10-03] MEDS: CLOTRIMAZOLE 1% TOPICAL CREAM 30GM TOP SCH ×2 (10:07→20:05)
[2021-10-03] MEDS: NYSTATIN CREAM 15 GM TOP SCH ×2 (10:08→20:05)
[2021-10-03 10:22] LABS: BLOOD UREA NITROGEN 22 MG/DL (7-18); CALCIUM LEVEL 8.8 MG/DL (8.8-10.2); CARBON DIOXIDE LEVEL 26 MEQ/L (21-32); CHLORIDE LEVEL 111 MEQ/L (98-107); CREATININE FOR GFR 0.94 MG/DL (0.55-1.30); GLOMERULAR FILTRATION RATE > 60.0 (>32); GLUCOSE, FASTING 105 MG/DL (70-100); MAGNESIUM LEVEL 2.1 MG/DL (1.8-2.4); POTASSIUM SERUM 3.7 MEQ/L (3.5-5.1); SODIUM LEVEL 143 MEQ/L (136-145)
[2021-10-03] MEDS: ACETAMINOPHEN TAB 650MG DOSE (2X325MG) PO PRN (17:58)
[2021-10-03] MEDS: ARIPiprazole 2 MG TAB PO SCH (20:03)
[2021-10-03] MEDS: CitaloPRAM (CeleXA) 20 MG TAB PO SCH (20:03)
[2021-10-03] MEDS: RAMELTEON 8 MG TAB (ROZEREM) PO PRN (20:03)
[2021-10-03] MEDS: QUEtiapine FUMARATE 25 MG TAB PO SCH (20:03)
[2021-10-03] MEDS: OLANZapine 5 MG TAB PO PRN (20:03)
[2021-10-04 06:00] VITALS: BP 137/58
[2021-10-04] MEDS: SODIUM CHLORIDE NASAL 0.65% SPRAY BTL (OCEAN) SCH ×2 (08:16→21:16)
[2021-10-04] MEDS: NYSTATIN CREAM 15 GM TOP SCH ×2 (08:16→21:17)
[2021-10-04] MEDS: MEMANTINE 5MG TABLET (NAMENDA) PO SCH ×2 (08:17→21:16)
[2021-10-04] MEDS: CLOTRIMAZOLE 1% TOPICAL CREAM 30GM TOP SCH ×2 (08:17→21:00)
[2021-10-04] MEDS: ACETAMINOPHEN TAB 650MG DOSE (2X325MG) PO PRN (08:18)
[2021-10-04] MEDS: OLANZapine 5 MG TAB PO PRN (16:09)
[2021-10-04] MEDS: CitaloPRAM (CeleXA) 20 MG TAB PO SCH (21:16)
[2021-10-04] MEDS: QUEtiapine FUMARATE 25 MG TAB PO SCH (21:16)
[2021-10-04] MEDS: RAMELTEON 8 MG TAB (ROZEREM) PO PRN (21:16)
[2021-10-04] MEDS: ARIPiprazole 2 MG TAB PO SCH (21:16)
[2021-10-05 06:00] VITALS: BP 118/56
[2021-10-05] MEDS: MEMANTINE 5MG TABLET (NAMENDA) PO SCH ×2 (08:34→22:23)
[2021-10-05] MEDS: SODIUM CHLORIDE NASAL 0.65% SPRAY BTL (OCEAN) SCH ×2 (08:35→22:25)
[2021-10-05] MEDS: CLOTRIMAZOLE 1% TOPICAL CREAM 30GM TOP SCH ×2 (12:00→22:24)
[2021-10-05] MEDS: NYSTATIN CREAM 15 GM TOP SCH ×2 (12:01→22:24)
[2021-10-05] MEDS: RAMELTEON 8 MG TAB (ROZEREM) PO PRN (22:23)
[2021-10-05] MEDS: ACETAMINOPHEN TAB 650MG DOSE (2X325MG) PO PRN (22:23)
[2021-10-05] MEDS: CitaloPRAM (CeleXA) 20 MG TAB PO SCH (22:23)
[2021-10-05] MEDS: ARIPiprazole 2 MG TAB PO SCH (22:24)
[2021-10-05] MEDS: QUEtiapine FUMARATE 25 MG TAB PO SCH (22:24)
[2021-10-06 06:30] VITALS: BP 114/58
[2021-10-06] MEDS ORDERED: NYSTATIN 100,000 UNITS/GM TOPICAL PWD 15 GM TOP SCH (09:00)
[2021-10-06] MEDS ORDERED: RAME8TAB2 PO (10:15)
[2021-10-06] MEDS ORDERED: ACET1TAB55 PO (10:15)
[2021-10-06] MEDS ORDERED: CLOTR1CR TOP (10:15)
[2021-10-06] MEDS ORDERED: NYST10CR TOP (10:15)
[2021-10-06] MEDS ORDERED: NYST10006 TOP (10:15)
[2021-10-06] MEDS ORDERED: QUET1TAB17 PO (10:15)
[2021-10-06] MEDS ORDERED: OLAN1TAB16 PO (10:15)
[2021-10-06] MEDS ORDERED: Sodium Chloride Nasal Spray (10:15)
[2021-10-06] MEDS: MEMANTINE 5MG TABLET (NAMENDA) PO SCH (11:15)
[2021-10-06] MEDS: CLOTRIMAZOLE 1% TOPICAL CREAM 30GM TOP SCH (11:16)
[2021-10-06] MEDS: NYSTATIN CREAM 15 GM TOP SCH (11:16)
[2021-10-06] MEDS: SODIUM CHLORIDE NASAL 0.65% SPRAY BTL (OCEAN) SCH (11:16)
--- NOTE | 2021-10-06 21:39 | DS.PDOC ---
Discharge Summary General Date of Admission Aug 20, 2021 at 22:36 Date of Discharge September 28, 2021 Specialist/Consultants [facility], Dr. Calhoun Discharge Summary PROCEDURES PERFORMED DURING STAY: None ADMITTING DIAGNOSES: 1. UTI 2. Dementia 3. Obesity DISCHARGE DIAGNOSES: 1. Proteus UTI 2. Dementia 3. Obesity 4. Intertrigo under the breast, in between the thighs, and gluteal fold COMPLICATIONS/CHIEF COMPLAINT: UTI. HISTORY OF PRESENT ILLNESS: Copied from admitting attending's H&P " Per d/w Antione Shanks , an 85 yr old F with dementia who lives with her niece (who is her caregiver) was found wondering on the streets by [employer] troopers multiple times. Unfortunately her niece had a stroke and was hospitalized. The patient was brought to the ER by neighbors. " HOSPITAL COURSE: During hospitalization, patient was given fosfomycin for UTI. Psychiatry was consulted to evaluate capacity, and patient did not have capacity to make decisions. Patient pended long-term placement. Today, there was a bed availability at [facility]. When I saw patient this morning, she was standing and wandering her room. She felt well and denied any fever, chest pain, or dyspnea. She does have a rash underneath her breast and in between the thighs. Recommended trying nystatin powder again. If it does not clear, patient may need dermatology consultation outpatient. Otherwise the rash between thighs looks very mild, continue clotrimazole cream. DISCHARGE MEDICATIONS: Please see below. ALLERGIES: Please see below. PHYSICAL EXAMINATION ON DISCHARGE: VITAL SIGNS: Please see below. GENERAL: Comfortable, in no apparent distress. HEENT: Sclera clear. NECK: Supple. RESPIRATORY: Lungs clear to auscultation bilaterally, no rales, wheeze or rhonchi. CARDIOVASCULAR: Regular rate and rhythm. ABDOMEN: Soft, nontender, no guarding or rebound tenderness. Normal bowel sounds. MUSCLE SKELETAL: Muscle strength 5/5 in all extremities. CUTANEOUS: Patient does have rash underneath her breast and very mildly in betwe en the thighs NEUROLOGICAL: No focal deficits noted. PSYCHOLOGICAL: Normal mood and affect LABORATORY DATA: Please see below. IMAGING: Radiologist interpretation CT head without contrast 1. No acute intracranial abnormality. 2. Atrophy and chronic deep white matter ischemic changes. Chest x-ray There is no acute cardiopulmonary disease Bladder ultrasound The pre void urinary bladder volume calculation is 57.4 cc. The patient was unable to void. Doppler at the UV junction shows uro jet phenomena bilaterally. No gross urinary bladder abnormalities were identified. PROGNOSIS: Good ACTIVITY: As tolerated. DIET: As tolerated DISCHARGE PLAN: Patient to be discharged to long-term care at [facility]. Continue nystatin powder underneath the breasts and clotrimazole cream in between the thighs. Can continue nystatin cream in the gluteal fold. If the nystatin powder does not help with the rash underneath her breast, she may need a outpatient dermatology referral DISPOSITION: [facility]. DISCHARGE INSTRUCTIONS: 1. Follow-up with PCP within 1 week. ITEMS TO FOLLOWUP ON ON OUTPATIENT: 1. Rash under her breasts, between the thighs, and in the gluteal fold. DISCHARGE CONDITION: Stable. Total time spent on discharge planning, discharge summary, and medication reconciliation: 35 minutes Vital Signs/I&Os Vital Signs Date Time Temp Pulse Resp B/P (MAP) Pulse Ox O2 Delivery O2 Flow Rate FiO2 10/06/21 06:30 80 17 114/58 (76) 96 Room Air 10/05/21 06:00 98.0 I&O- Last 24 Hours up to 6 AM 10/06/21 06:00 Intake Total 1040 ml Balance 1040 ml Discharge Medications Scheduled Aripiprazole (Abilify) 2 Mg Tablet, 2 MG PO QHS, (Reported) Citalopram Hydrobromide (Citalopram HBr) 20 Mg Tablet, 20 MG PO QHS, (Reported) Clotrimazole (Clotrimazole) 30 Gm Cream..g., 0 DOSE TOP BID Apply to groin area Memantine HCl (Memantine HCl) 10 Mg Tablet, 10 MG PO BID, (Reported) Nystatin (Nystatin) 15 Gm Cream..g., 0 DOSE TOP BID apply to perianal area Nystatin (Nystop) 60 Gm Powder, 0 DOSE TOP BID Apply under breast bilaterally Quetiapine Fumarate (Quetiapine Fumarate) 25 Mg Tablet, 25 MG PO QHS [Sodium Chloride Nasal [place]] 45 SPRAY/45 ML NASPR, 2 SPRAY NA BID Scheduled PRN Acetaminophen (Acetaminophen) 325 Mg Tablet, 650 MG PO Q4H PRN for MILD PAIN or TEMP > 101 Olanzapine (Olanzapine) 5 Mg Tablet, 5 MG PO BIDP PRN for ANXIETY Ramelteon (Ramelteon) 8 Mg Tablet, 8 MG PO QHS PRN for INSOMNIA Allergies Coded Allergies: Penicillins (Verified Allergy, Mild, RASH, 08/20/21) Quinolones (Verified Allergy, Unknown, 09/10/20) prednisone (Verified Allergy, Unknown, 09/10/20) Sulfa (Sulfonamide Antibiotics) (Verified Adverse Reaction, Intermediate, FLUID RETENTION, 09/10/20) SCARLETT CLINE DO Oct 06, 2021 21:39
== END 2021-10-06 12:42 | DRG 57 ==
LOC: M ED 15:34 → M ED INP 22:36 → ENRESERV 08-21 13:56 → M MSPAV 08-21 15:44
PROVIDERS: ADMIT Internal Medicine; ATTEND Internal Medicine
DX: G30.9 Alzheimer's disease, unspecified (principal); L30.4 Erythema intertrigo; E66.9 Obesity, unspecified; N30.91 Cystitis, unspecified with hematuria; Z79.899 Other long term (current) drug therapy; Z20.822 Contact with and (suspected) exposure to COVID-19; Z88.0 Allergy status to penicillin; Z88.2 Allergy status to sulfonamides; Z88.8 Allergy status to other drugs, medicaments and biological substances; F32.A Depression, unspecified; B96.4 Proteus (mirabilis) (morganii) as the cause of diseases classified elsewhere

== ENCOUNTER → 2021-10-14 | Outpatient (REF) | payer MEDICARE ==
[~2021-10-14] MED LIST changes: +ABIL1TAB13 PO; +ACET1TAB55 PO; +CITA20TA6 PO; +CITA20TA7; +CLOTR1CR TOP; +MEMA10TA19; +MEMA10TA19 PO; +NYST10006 TOP; +NYST10CR TOP; +OLAN1TAB16 PO; +QUET1TAB17 PO; +RAME8TAB2 PO; +Sodium Chloride Nasal Spray
== END ==
LOC: SKLAB3 06:17
PROVIDERS: ATTEND Internal Medicine
DX: Z20.822 Contact with and (suspected) exposure to COVID-19 (principal)

== ENCOUNTER → 2021-10-21 | Outpatient (REF) | payer MEDICARE | LOC: SKLAB8 14:09 | PROVIDERS: ATTEND Internal Medicine | DX: Z20.822 Contact with and (suspected) exposure to COVID-19 (principal) ==

== ENCOUNTER → 2021-10-28 | Outpatient (REF) | payer MEDICARE ==
[2021-10-28 14:56] LABS: HEMATOCRIT 37.4 % (36.0-47.0); HEMOGLOBIN 11.4 g/dl (12.0-15.5); MEAN CORPUSCULAR HEMOGLOBIN 28.2 pg (27.0-33.0); MEAN CORPUSCULAR HGB CONC 30.5 g/dl (32.0-36.5); MEAN CORPUSCULAR VOLUME 92.6 fl (80.0-96.0); PLATELET COUNT, AUTOMATED 234 10^3/uL (150-450); RED BLOOD COUNT 4.04 10^6/uL (4.00-5.40); WHITE BLOOD COUNT 7.8 10^3/uL (4.0-10.0)
[2021-10-28 15:25] LABS: ALBUMIN 2.8 GM/DL (3.2-5.2); ALT/SGPT 33 U/L (12-78); BILIRUBIN,TOTAL 0.3 MG/DL (0.2-1.0); BLOOD UREA NITROGEN 19 MG/DL (7-18); CALCIUM LEVEL 8.4 MG/DL (8.8-10.2); CARBON DIOXIDE LEVEL 26 MEQ/L (21-32); CHLORIDE LEVEL 107 MEQ/L (98-107); CREATININE FOR GFR 0.85 MG/DL (0.55-1.30); GLOMERULAR FILTRATION RATE > 60.0 (>32); GLUCOSE, FASTING 156 MG/DL (70-100); POTASSIUM SERUM 3.9 MEQ/L (3.5-5.1); SODIUM LEVEL 140 MEQ/L (136-145); TOTAL PROTEIN 6.7 GM/DL (6.4-8.2)
== END ==
LOC: SKLAB8 11:24
PROVIDERS: ATTEND Neuromusculoskeletal Medicine & OMM
DX: U07.1 COVID-19 (principal); Z79.899 Other long term (current) drug therapy

== ENCOUNTER → 2021-10-28 | Outpatient (REF) | payer MEDICARE | LOC: SKLAB8 11:03 | PROVIDERS: ATTEND Neuromusculoskeletal Medicine & OMM | DX: Z20.822 Contact with and (suspected) exposure to COVID-19 (principal) ==

== ENCOUNTER → 2021-10-30 | Outpatient (REF) | payer MEDICARE ==
[2021-10-30 09:22] LABS: HEMOGLOBIN 11.6 g/dl (12.0-15.5); MEAN CORPUSCULAR HEMOGLOBIN 28.7 pg (27.0-33.0); MEAN CORPUSCULAR HGB CONC 31.4 g/dl (32.0-36.5); MEAN CORPUSCULAR VOLUME 91.6 fl (80.0-96.0); PLATELET COUNT, AUTOMATED 226 10^3/uL (150-450); RED BLOOD COUNT 4.04 10^6/uL (4.00-5.40); WHITE BLOOD COUNT 6.8 10^3/uL (4.0-10.0)
[2021-10-30 09:46] LABS: BLOOD UREA NITROGEN 16 MG/DL (7-18); CALCIUM LEVEL 8.4 MG/DL (8.8-10.2); CARBON DIOXIDE LEVEL 29 MEQ/L (21-32); CHLORIDE LEVEL 107 MEQ/L (98-107); CREATININE FOR GFR 0.86 MG/DL (0.55-1.30); GLOMERULAR FILTRATION RATE > 60.0 (>32); GLUCOSE, FASTING 93 MG/DL (70-100); POTASSIUM SERUM 3.9 MEQ/L (3.5-5.1); SODIUM LEVEL 141 MEQ/L (136-145)
== END ==
LOC: SKLAB8 07:00
PROVIDERS: ATTEND Neuromusculoskeletal Medicine & OMM
DX: U07.1 COVID-19 (principal); Z79.899 Other long term (current) drug therapy

== ENCOUNTER → 2021-11-05 | Outpatient (REF) | payer MEDICARE ==
[2021-11-05 11:15] LABS: HEMATOCRIT 37.2 % (36.0-47.0); HEMOGLOBIN 11.7 g/dl (12.0-15.5); MEAN CORPUSCULAR HEMOGLOBIN 28.7 pg (27.0-33.0); MEAN CORPUSCULAR HGB CONC 31.5 g/dl (32.0-36.5); MEAN CORPUSCULAR VOLUME 91.2 fl (80.0-96.0); PLATELET COUNT, AUTOMATED 193 10^3/uL (150-450); RED BLOOD COUNT 4.08 10^6/uL (4.00-5.40); WHITE BLOOD COUNT 7.1 10^3/uL (4.0-10.0)
[2021-11-05 11:31] LABS: BLOOD UREA NITROGEN 13 MG/DL (7-18); CALCIUM LEVEL 8.2 MG/DL (8.8-10.2); CARBON DIOXIDE LEVEL 24 MEQ/L (21-32); CHLORIDE LEVEL 107 MEQ/L (98-107); CREATININE FOR GFR 0.73 MG/DL (0.55-1.30); GLOMERULAR FILTRATION RATE > 60.0 (>32); GLUCOSE, FASTING 91 MG/DL (70-100); POTASSIUM SERUM 3.8 MEQ/L (3.5-5.1); SODIUM LEVEL 140 MEQ/L (136-145)
== END ==
LOC: SKLAB8 07:00
PROVIDERS: ATTEND Neuromusculoskeletal Medicine & OMM
DX: U07.1 COVID-19 (principal); Z79.899 Other long term (current) drug therapy

== ENCOUNTER → 2021-11-16 | Outpatient (REF) | payer MEDICARE ==
[2021-11-16 07:54] LABS: HEMATOCRIT 34.5 % (36.0-47.0); HEMOGLOBIN 11.1 g/dl (12.0-15.5); MEAN CORPUSCULAR HEMOGLOBIN 28.8 pg (27.0-33.0); MEAN CORPUSCULAR HGB CONC 32.2 g/dl (32.0-36.5); MEAN CORPUSCULAR VOLUME 89.6 fl (80.0-96.0); PLATELET COUNT, AUTOMATED 243 10^3/uL (150-450); RED BLOOD COUNT 3.85 10^6/uL (4.00-5.40); WHITE BLOOD COUNT 10.9 10^3/uL (4.0-10.0)
[2021-11-16 08:11] LABS: BLOOD UREA NITROGEN 22 MG/DL (7-18); CALCIUM LEVEL 8.8 MG/DL (8.8-10.2); CARBON DIOXIDE LEVEL 27 MEQ/L (21-32); CHLORIDE LEVEL 106 MEQ/L (98-107); CREATININE FOR GFR 0.84 MG/DL (0.55-1.30); GLOMERULAR FILTRATION RATE > 60.0 (>32); GLUCOSE, FASTING 110 MG/DL (70-100); POTASSIUM SERUM 3.4 MEQ/L (3.5-5.1); SODIUM LEVEL 141 MEQ/L (136-145)
== END ==
LOC: SKLAB8 07:00
PROVIDERS: ATTEND Neuromusculoskeletal Medicine & OMM
DX: E87.6 Hypokalemia (principal)

== ENCOUNTER → 2021-11-26 | Outpatient (REF) | payer MEDICARE ==
[2021-11-26 11:29] LABS: CALCIUM LEVEL 9.2 MG/DL (8.8-10.2); CREATININE FOR GFR 1.08 MG/DL (0.55-1.30); GLOMERULAR FILTRATION RATE 51.3 (>32); POTASSIUM SERUM 3.9 MEQ/L (3.5-5.1)
== END ==
LOC: SKLAB8 10:15
PROVIDERS: ATTEND Neuromusculoskeletal Medicine & OMM
DX: R42 Dizziness and giddiness (principal)

== ENCOUNTER → 2021-12-01 | Outpatient (REF) | payer MEDICARE ==
[2021-12-01 15:36] LABS: BLOOD UREA NITROGEN 16 MG/DL (7-18); CALCIUM LEVEL 8.9 MG/DL (8.8-10.2); CARBON DIOXIDE LEVEL 24 MEQ/L (21-32); CHLORIDE LEVEL 109 MEQ/L (98-107); CREATININE FOR GFR 0.93 MG/DL (0.55-1.30); GLOMERULAR FILTRATION RATE > 60.0 (>32); GLUCOSE, FASTING 149 MG/DL (70-100); POTASSIUM SERUM 4.3 MEQ/L (3.5-5.1); SODIUM LEVEL 140 MEQ/L (136-145)
== END ==
LOC: SKLAB8 08:00
PROVIDERS: ATTEND Neuromusculoskeletal Medicine & OMM
DX: R60.9 Edema, unspecified (principal)

== ENCOUNTER → 2022-01-14 | Outpatient (REF) | payer MEDICARE ==
[2022-01-14 10:56] LABS: BLOOD UREA NITROGEN 14 MG/DL (7-18); CALCIUM LEVEL 9.1 MG/DL (8.8-10.2); CARBON DIOXIDE LEVEL 25 MEQ/L (21-32); CHLORIDE LEVEL 108 MEQ/L (98-107); GLOMERULAR FILTRATION RATE > 60.0 (>32); GLUCOSE, FASTING 91 MG/DL (70-100); POTASSIUM SERUM 3.9 MEQ/L (3.5-5.1); SODIUM LEVEL 140 MEQ/L (136-145)
== END ==
LOC: SKLAB8 07:00
PROVIDERS: ATTEND Neuromusculoskeletal Medicine & OMM
DX: R60.9 Edema, unspecified (principal)

== ENCOUNTER → 2022-01-26 | Outpatient (REF) | payer MEDICARE | LOC: SKLAB8 12:08 | PROVIDERS: ATTEND Neuromusculoskeletal Medicine & OMM | DX: R19.5 Other fecal abnormalities (principal); Z79.899 Other long term (current) drug therapy ==

== ENCOUNTER → 2022-05-13 | Outpatient (REF) | payer MEDICARE ==
[~2022-05-13] MED LIST changes: +ACET650S3 PR; +ACYC200C8 PO; +AMMO12CR7 TOP; +AZIT-12 PO; +BUSP5TA PO; +CEFE1INJ5 IM; +CELE10TA PO; +CETACRE3 EXT; +CETALIQ EXT; +DULC10SU2 PR; +FLEEENE12 PR; +GABA-1171 PO; +LIDO2SO SS; +NYST-13 EXT; +NYST-13 TOP; -NYST10CR TOP; +SALI0.6530; +SFHMOMUDC PO; +SODIGEL; +VITA200016 PO; +[UNRECOGNIZED DRUG - CODE] TOP
== END ==
LOC: SKLAB8 08:00
PROVIDERS: ATTEND Neuromusculoskeletal Medicine & OMM
DX: Z79.899 Other long term (current) drug therapy (principal); E55.9 Vitamin D deficiency, unspecified

== ENCOUNTER → 2022-06-14 | Outpatient (REF) | payer MEDICARE ==
[~2022-06-14] MED LIST changes: -ACET650S3 PR; -ACYC200C8 PO; -AMMO12CR7 TOP; -AZIT-12 PO; -BUSP5TA PO; -CEFE1INJ5 IM; -CELE10TA PO; -CETACRE3 EXT; -CETALIQ EXT; -DULC10SU2 PR; -FLEEENE12 PR; -GABA-1171 PO; -LIDO2SO SS; -NYST-13 EXT; -SALI0.6530; -SFHMOMUDC PO; -SODIGEL; -VITA200016 PO; -[UNRECOGNIZED DRUG - CODE] TOP
[2022-06-14 20:03] LABS: HEMATOCRIT 34.6 % (36.0-47.0); HEMOGLOBIN 11.5 g/dl (12.0-15.5); MEAN CORPUSCULAR HEMOGLOBIN 30.4 pg (27.0-33.0); MEAN CORPUSCULAR HGB CONC 33.2 g/dl (32.0-36.5); MEAN CORPUSCULAR VOLUME 91.5 fl (80.0-96.0); PLATELET COUNT, AUTOMATED 121 10^3/uL (150-450); RED BLOOD COUNT 3.78 10^6/uL (4.00-5.40); WHITE BLOOD COUNT 14.7 10^3/uL (4.0-10.0)
[2022-06-14 20:05] LABS: APPEARANCE, URINE MANUAL CLOUDY (CLEAR); BILIRUBIN, URINE MANUAL NEGATIVE (NEGATIVE); BLOOD URINE MANUAL POSITIVE (NEGATIVE); COLOR, URINE MANUAL DK YELLOW (YELLOW); GLUCOSE, URINE (UA) MANUAL NEGATIVE (NEGATIVE); KETONE, URINE MANUAL NEGATIVE (NEGATIVE); LEUKOCYTE ESTERASE, URINE MAN POSITIVE (NEGATIVE); NITRITE, URINE MANUAL NEGATIVE (NEGATIVE); PROTEIN, URINE MANUAL 2+ mg/dL (NEGATIVE); UROBILINOGEN, URINE MANUAL NORMAL (NORMAL)
[2022-06-14 20:06] LABS: RBC, URINE TNTC /hpf (0-3); WBC, URINE TNTC /hpf (0-3)
[2022-06-14 20:07] LABS: BACTERIA, URINE MOD AMOUNT; HYALINE CAST, URINE NONE SEEN /lpf (0-1); SQUAMOUS EPITHELIAL CELL URINE SMALL AMOUNT /hpf (SMALL AMT)
[2022-06-14 20:34] LABS: ALBUMIN 2.5 GM/DL (3.2-5.2); BILIRUBIN,TOTAL 1.6 MG/DL (0.2-1.0); CALCIUM LEVEL 8.6 MG/DL (8.8-10.2); CREATININE FOR GFR 2.04 MG/DL (0.55-1.30); GLOMERULAR FILTRATION RATE 24.6 (>32); POTASSIUM SERUM 3.2 MEQ/L (3.5-5.1)
[2022-06-14 20:57] LABS: EOSINOPHILS 1 % (0-3); LYMPHOCYTES 4 % (16-44); METAMYELOCYTES 1 % (0-0); MONOCYTES 2 % (0-5); NEUTROPHILS 65 % (28-66); PLATELET ESTIMATE DECREASED (NORMAL)
== END ==
LOC: SKLAB8 18:04
PROVIDERS: ATTEND Neuromusculoskeletal Medicine & OMM
DX: R00.0 Tachycardia, unspecified (principal)

== ENCOUNTER 2022-06-16 03:36 | Inpatient (IN) | payer MEDICARE ==
[~2022-06-16] VITALS: Ht 152.4 cm; Wt 68.4 kg
[2022-06-16 04:37] LABS: HEMATOCRIT 37.5 % (36.0-47.0); MEAN CORPUSCULAR HEMOGLOBIN 29.6 pg (27.0-33.0); MEAN CORPUSCULAR VOLUME 92.4 fl (80.0-96.0); PLATELET COUNT, AUTOMATED 127 10^3/uL (150-450); RED BLOOD COUNT 4.06 10^6/uL (4.00-5.40)
[2022-06-16 04:38] LABS: WHITE BLOOD COUNT 35.2 10^3/uL (4.0-10.0)
[2022-06-16 04:52] LABS: LYMPHOCYTES 1 % (16-44); MONOCYTES 4 % (0-5); NEUTROPHILS 89 % (28-66); PLATELET ESTIMATE DECREASED (NORMAL)
[2022-06-16 04:54] LABS: TOXIC VACUOLATION 1+
[2022-06-16] MEDS ORDERED: BUSP5TA PO (05:05)
[2022-06-16] MEDS ORDERED: ACET650S3 PR (05:05)
[2022-06-16] MEDS ORDERED: DULC10SU2 PR (05:05)
[2022-06-16] MEDS ORDERED: SODIGEL (05:05)
[2022-06-16] MEDS ORDERED: CELE10TA PO (05:05)
[2022-06-16] MEDS ORDERED: AMMO12CR7 TOP (05:05)
[2022-06-16] MEDS ORDERED: FLEEENE12 PR (05:05)
[2022-06-16] MEDS ORDERED: SALI0.6530 (05:05)
[2022-06-16] MEDS ORDERED: CETACRE3 EXT (05:05)
[2022-06-16] MEDS ORDERED: [UNRECOGNIZED DRUG - CODE] TOP (05:05)
[2022-06-16] MEDS ORDERED: SFHMOMUDC PO (05:05)
[2022-06-16] MEDS ORDERED: GABA-1171 PO (05:05)
[2022-06-16] MEDS ORDERED: NYST-13 EXT (05:05)
[2022-06-16] MEDS ORDERED: CETALIQ EXT (05:05)
[2022-06-16] MEDS ORDERED: CEFE1INJ5 IM (05:05)
[2022-06-16] MEDS ORDERED: AZIT-12 PO (05:05)
[2022-06-16 05:13] LABS: RSV AMPLIFICATION NEGATIVE (NEGATIVE)
[2022-06-16 05:14] LABS: ALBUMIN 2.3 GM/DL (3.2-5.2); BILIRUBIN,DIRECT 0.6 MG/DL (0.0-0.2); BILIRUBIN,TOTAL 0.9 MG/DL (0.2-1.0); CALCIUM LEVEL 8.5 MG/DL (8.8-10.2); CREATININE FOR GFR 2.77 MG/DL (0.55-1.30); GLOMERULAR FILTRATION RATE 17.3 (>32); POTASSIUM SERUM 4.9 MEQ/L (3.5-5.1); TOTAL PROTEIN 6.2 GM/DL (6.4-8.2)
[2022-06-16] MEDS ORDERED: NS 1,000 ML IV ONE (06:20)
[2022-06-16] MEDS ORDERED: VITA200016 PO (06:35)
[2022-06-16] MEDS ORDERED: HOME MED LIST COMPLETE! XX SCH (06:40)
[2022-06-16] MEDS ORDERED: MEROPENEM INJ 1 GM in IV 1 EA IV ONE (07:00)
[2022-06-16 12:30] VITALS: BP 105/52
[2022-06-16] MEDS: NS 1,000 ML IV SCH (12:39)
[2022-06-16 14:00] VITALS: BP 100/50
[2022-06-16] MEDS ORDERED: VANCOMYCIN HCL 750 MG, VIAL MATE ADAPTER 1 EACH in D5W 250 ML IV ONE (14:00)
[2022-06-16] MEDS: busPIRone 5 MG TAB PO SCH ×2 (14:33→23:34)
[2022-06-16] MEDS: HEPARIN SOD (PORCINE) 5000UNITS/ML 1ML VIAL/SYRINGE SQ SCH ×2 (14:33→22:00)
[2022-06-16] MEDS ORDERED: VANCOMYCIN HCL 500 MG in D5W MINI-BAG PLUS 100 ML IV ONE (15:00)
[2022-06-16 15:25] VITALS: BP 105/55
[2022-06-16 16:05] VITALS: BP 108/55
[2022-06-16] MEDS ORDERED: LIDOCAINE 1% MDV 20ML VIAL As Ordered ONE (16:13)
[2022-06-16 17:14] VITALS: BP 108/64
[2022-06-16] MEDS ORDERED: SODIUM CHLORIDE 0.9% INJ 10 ML SYR IV PRN (18:00)
[2022-06-16] MEDS: SODIUM CHLORIDE 0.9% INJ 10 ML SYR IV SCH (18:27)
[2022-06-16 18:44] LABS: VENOUS BASE EXCESS -3.7 (-2.0-2.0); VENOUS HCO3 22.6 MEQ/L (23.0-27.0); VENOUS O2 SATURATION 60.8 % (60.0-80.0); VENOUS PARTIAL PRESSURE O2 33.6 mmHg (30.0-50.0); VENOUS STANDARD HCO3 20.7 MEQ/L; VENOUS TOTAL CO2 24.1 MEQ/L (24.0-28.0)
[2022-06-16 20:00] VITALS: BP 110/51
[2022-06-16 20:59] LABS: BACTERIA, URINE LARGE AMOUNT; HYALINE CAST, URINE NONE SEEN /lpf (0-1); SQUAMOUS EPITHELIAL CELL URINE LARGE AMOUNT /hpf (SMALL AMT); TRANSITIONAL EPI CELLS, URINE LARGE AMOUNT /hpf
[2022-06-16] MEDS ORDERED: SODIUM CHLORIDE NASAL 0.65% SPRAY BTL (OCEAN) PRN (23:05)
[2022-06-16] MEDS: ARIPiprazole 2 MG TAB PO SCH (23:33)
[2022-06-16] MEDS: GABAPENTIN 100 MG CAP PO SCH (23:34)
[2022-06-16] MEDS: CitaloPRAM (CeleXA) 10 MG TABLET PO SCH (23:34)
[2022-06-16] MEDS: ACETAMINOPHEN TAB 650MG DOSE (2X325MG) PO PRN (23:35)
[2022-06-16] MEDS: MEROPENEM INJ 500 MG in IV 1 EA IV SCH (23:35)
[2022-06-17 02:00] VITALS: BP 103/45
[2022-06-17] MEDS: NS 1,000 ML IV SCH (02:43)
[2022-06-17 05:44] VITALS: BP 116/53
[2022-06-17] MEDS: HEPARIN SOD (PORCINE) 5000UNITS/ML 1ML VIAL/SYRINGE SQ SCH ×4 (05:47→22:04)
[2022-06-17] MEDS: SODIUM CHLORIDE 0.9% INJ 10 ML SYR IV SCH ×2 (05:59→18:41)
[2022-06-17 06:32] LABS: HEMATOCRIT 32.3 % (36.0-47.0); HEMOGLOBIN 10.7 g/dl (12.0-15.5); MEAN CORPUSCULAR HEMOGLOBIN 30.1 pg (27.0-33.0); MEAN CORPUSCULAR HGB CONC 33.1 g/dl (32.0-36.5); PLATELET COUNT, AUTOMATED 106 10^3/uL (150-450); RED BLOOD COUNT 3.55 10^6/uL (4.00-5.40); WHITE BLOOD COUNT 28.9 10^3/uL (4.0-10.0)
[2022-06-17 07:30] LABS: BILIRUBIN,TOTAL 0.7 MG/DL (0.2-1.0); CREATININE FOR GFR 1.33 MG/DL (0.55-1.30); GLOMERULAR FILTRATION RATE 40.3 (>32); MAGNESIUM LEVEL 2.2 MG/DL (1.8-2.4); POTASSIUM SERUM 3.5 MEQ/L (3.5-5.1); TOTAL PROTEIN 5.4 GM/DL (6.4-8.2)
[2022-06-17] MEDS ORDERED: GLUCOSE 4GM CHEW TABLET PO PRN (08:25)
[2022-06-17] MEDS ORDERED: D5W/0.9% SODIUM CHLORIDE 1,000 ML IV ONE (08:25)
[2022-06-17] MEDS ORDERED: DEXTROSE 50% 50 ML SYRINGE IV PRN (08:25)
[2022-06-17] MEDS ORDERED: GLUCAGON INJ 1MG VIAL SC PRN (08:25)
[2022-06-17] MEDS: busPIRone 5 MG TAB PO SCH ×2 (08:34→22:15)
[2022-06-17] MEDS: MEROPENEM INJ 500 MG in IV 1 EA IV SCH (08:34)
[2022-06-17 10:00] VITALS: BP 138/71
[2022-06-17] MEDS ORDERED: VANCOMYCIN HCL 500 MG in D5W MINI-BAG PLUS 100 ML IV SCH (10:00)
[2022-06-17] MEDS: VANCOMYCIN HCL 1,000 MG, VIAL MATE ADAPTER 1 EACH in D5W 250 ML IV SCH (10:58)
[2022-06-17 14:00] VITALS: BP 137/63
[2022-06-17 18:00] VITALS: BP 124/85
[2022-06-17 21:00] VITALS: BP 127/83
[2022-06-17] MEDS: ARIPiprazole 2 MG TAB PO SCH (22:14)
[2022-06-17] MEDS: D5W/0.9% SODIUM CHLORIDE 1,000 ML IV SCH (22:15)
[2022-06-17] MEDS: CitaloPRAM (CeleXA) 10 MG TABLET PO SCH (22:15)
[2022-06-17] MEDS: GABAPENTIN 100 MG CAP PO SCH (22:15)
[2022-06-17] MEDS: MEROPENEM INJ 1 GM in IV 1 EA IV SCH (22:15)
[2022-06-17] MEDS: ACETAMINOPHEN TAB 650MG DOSE (2X325MG) PO PRN (22:18)
[2022-06-18 02:00] VITALS: BP 128/78
[2022-06-18] MEDS ORDERED: diphenhydrAMINE 50MG/ML VIAL (J1200) IV ONE (04:00)
[2022-06-18] MEDS: SODIUM CHLORIDE 0.9% INJ 10 ML SYR IV SCH ×2 (05:39→18:55)
[2022-06-18] MEDS: HEPARIN SOD (PORCINE) 5000UNITS/ML 1ML VIAL/SYRINGE SQ SCH ×3 (05:42→21:37)
[2022-06-18 06:00] VITALS: BP 132/77
[2022-06-18 06:25] LABS: HEMATOCRIT 36.3 % (36.0-47.0); HEMOGLOBIN 11.6 g/dl (12.0-15.5); MEAN CORPUSCULAR HEMOGLOBIN 29.3 pg (27.0-33.0); MEAN CORPUSCULAR VOLUME 91.7 fl (80.0-96.0); RED BLOOD COUNT 3.96 10^6/uL (4.00-5.40); WHITE BLOOD COUNT 21.9 10^3/uL (4.0-10.0)
[2022-06-18 06:30] LABS: PLATELET COUNT, AUTOMATED 95 10^3/uL (150-450)
[2022-06-18 06:56] LABS: ALBUMIN 2.1 GM/DL (3.2-5.2); ALT/SGPT 59 U/L (12-78); BILIRUBIN,TOTAL 0.6 MG/DL (0.2-1.0); BLOOD UREA NITROGEN 43 MG/DL (7-18); CALCIUM LEVEL 8.4 MG/DL (8.8-10.2); CARBON DIOXIDE LEVEL 22 MEQ/L (21-32); CHLORIDE LEVEL 118 MEQ/L (98-107); GLOMERULAR FILTRATION RATE > 60.0 (>32); GLUCOSE, FASTING 114 MG/DL (70-100); MAGNESIUM LEVEL 2.3 MG/DL (1.8-2.4); POTASSIUM SERUM 3.5 MEQ/L (3.5-5.1); SODIUM LEVEL 148 MEQ/L (136-145); TOTAL PROTEIN 5.7 GM/DL (6.4-8.2)
[2022-06-18] MEDS: MEROPENEM INJ 1 GM in IV 1 EA IV SCH ×2 (08:52→22:18)
[2022-06-18] MEDS: busPIRone 5 MG TAB PO SCH ×2 (08:52→21:36)
[2022-06-18 10:00] VITALS: BP 160/80
[2022-06-18] MEDS ORDERED: LIDOCAINE 1% MDV 20ML VIAL As Ordered ONE (11:31)
[2022-06-18] MEDS: D5W/0.9% SODIUM CHLORIDE 1,000 ML IV SCH (12:12)
[2022-06-18] MEDS: VANCOMYCIN HCL 1,000 MG, VIAL MATE ADAPTER 1 EACH in D5W 250 ML IV SCH (13:20)
[2022-06-18 14:00] VITALS: BP 161/80
[2022-06-18 18:00] VITALS: BP 159/81
[2022-06-18] MEDS ORDERED: FLUCONAZOLE 50MG TABLET PO ONE (19:05)
[2022-06-18] MEDS: GABAPENTIN 100 MG CAP PO SCH (21:36)
[2022-06-18] MEDS: CitaloPRAM (CeleXA) 10 MG TABLET PO SCH (21:36)
[2022-06-18] MEDS: ARIPiprazole 2 MG TAB PO SCH (21:36)
[2022-06-18] MEDS: ACETAMINOPHEN TAB 650MG DOSE (2X325MG) PO PRN (21:44)
[2022-06-18 22:00] VITALS: BP 109/75
[2022-06-19 02:00] VITALS: BP 149/74
[2022-06-19] MEDS: SODIUM CHLORIDE 0.9% INJ 10 ML SYR IV SCH (05:39)
[2022-06-19] MEDS: HEPARIN SOD (PORCINE) 5000UNITS/ML 1ML VIAL/SYRINGE SQ SCH (05:39)
[2022-06-19 06:00] VITALS: BP 147/70
[2022-06-19 07:01] LABS: HEMOGLOBIN 11.2 g/dl (12.0-15.5); MEAN CORPUSCULAR HEMOGLOBIN 29.9 pg (27.0-33.0); MEAN CORPUSCULAR HGB CONC 32.9 g/dl (32.0-36.5); MEAN CORPUSCULAR VOLUME 90.7 fl (80.0-96.0); RED BLOOD COUNT 3.75 10^6/uL (4.00-5.40)
[2022-06-19 07:28] LABS: ALBUMIN 2.1 GM/DL (3.2-5.2); ALT/SGPT 64 U/L (12-78); BILIRUBIN,TOTAL 0.8 MG/DL (0.2-1.0); BLOOD UREA NITROGEN 37 MG/DL (7-18); CALCIUM LEVEL 8.4 MG/DL (8.8-10.2); CARBON DIOXIDE LEVEL 19 MEQ/L (21-32); CHLORIDE LEVEL 122 MEQ/L (98-107); CREATININE FOR GFR 0.79 MG/DL (0.55-1.30); GLOMERULAR FILTRATION RATE > 60.0 (>32); GLUCOSE, FASTING 105 MG/DL (70-100); MAGNESIUM LEVEL 1.9 MG/DL (1.8-2.4); POTASSIUM SERUM 3.8 MEQ/L (3.5-5.1); SODIUM LEVEL 149 MEQ/L (136-145); TOTAL PROTEIN 5.5 GM/DL (6.4-8.2)
[2022-06-19 07:29] LABS: WHITE BLOOD COUNT 14.8 10^3/uL (4.0-10.0)
[2022-06-19 07:30] LABS: PLATELET COUNT, AUTOMATED 79 10^3/uL (150-450)
[2022-06-19 10:00] VITALS: BP 156/71
[2022-06-19] MEDS: busPIRone 5 MG TAB PO SCH ×2 (10:12→20:17)
[2022-06-19] MEDS: cefTRIAXone SOD 2 GM in D5W MINI-BAG PLUS 50 ML IV SCH (10:12)
[2022-06-19 14:00] VITALS: BP 169/86
[2022-06-19] MEDS: ACETAMINOPHEN TAB 650MG DOSE (2X325MG) PO PRN (14:59)
[2022-06-19] MEDS: ARIPiprazole 2 MG TAB PO SCH (20:17)
[2022-06-19] MEDS: GABAPENTIN 100 MG CAP PO SCH (20:17)
[2022-06-19] MEDS: CitaloPRAM (CeleXA) 10 MG TABLET PO SCH (20:17)
[2022-06-19 22:00] VITALS: BP 144/67
[2022-06-20] VITALS: BP 142/65
[2022-06-20 05:44] VITALS: BP 149/66
[2022-06-20 05:55] LABS: HEMATOCRIT 33.6 % (36.0-47.0); HEMOGLOBIN 10.9 g/dl (12.0-15.5); MEAN CORPUSCULAR HEMOGLOBIN 28.8 pg (27.0-33.0); MEAN CORPUSCULAR HGB CONC 32.4 g/dl (32.0-36.5); MEAN CORPUSCULAR VOLUME 88.9 fl (80.0-96.0); RED BLOOD COUNT 3.78 10^6/uL (4.00-5.40); WHITE BLOOD COUNT 14.9 10^3/uL (4.0-10.0)
[2022-06-20 05:56] LABS: PLATELET COUNT, AUTOMATED 92 10^3/uL (150-450)
[2022-06-20 06:33] LABS: ALT/SGPT 68 U/L (12-78); BLOOD UREA NITROGEN 27 MG/DL (7-18); CALCIUM LEVEL 8.2 MG/DL (8.8-10.2); CARBON DIOXIDE LEVEL 23 MEQ/L (21-32); CHLORIDE LEVEL 117 MEQ/L (98-107); CREATININE FOR GFR 0.67 MG/DL (0.55-1.30); GLOMERULAR FILTRATION RATE > 60.0 (>32); GLUCOSE, FASTING 105 MG/DL (70-100); MAGNESIUM LEVEL 1.6 MG/DL (1.8-2.4); POTASSIUM SERUM 3.5 MEQ/L (3.5-5.1); SODIUM LEVEL 147 MEQ/L (136-145); TOTAL PROTEIN 5.3 GM/DL (6.4-8.2)
[2022-06-20] MEDS ORDERED: MAGNESIUM OXIDE 400MG TAB (MAG-OX) PO ONE (07:50)
[2022-06-20] MEDS: busPIRone 5 MG TAB PO SCH ×2 (08:19→21:01)
[2022-06-20] MEDS: SENOKOT S TAB PO SCH ×2 (08:19→21:01)
[2022-06-20] MEDS: cefTRIAXone SOD 2 GM in D5W MINI-BAG PLUS 50 ML IV SCH (08:20)
[2022-06-20] MEDS: ACETAMINOPHEN TAB 650MG DOSE (2X325MG) PO PRN ×3 (08:20→22:57)
[2022-06-20 10:00] VITALS: BP 150/58
[2022-06-20 14:00] VITALS: BP 142/65
[2022-06-20] MEDS: ARIPiprazole 2 MG TAB PO SCH (21:01)
[2022-06-20] MEDS: CitaloPRAM (CeleXA) 10 MG TABLET PO SCH (21:01)
[2022-06-20] MEDS: GABAPENTIN 100 MG CAP PO SCH (21:01)
[2022-06-20 22:00] VITALS: BP 126/51
[2022-06-21 00:20] VITALS: BP 127/63
[2022-06-21 06:00] VITALS: BP 139/58
[2022-06-21 06:17] LABS: HEMATOCRIT 33.1 % (36.0-47.0); HEMOGLOBIN 10.7 g/dl (12.0-15.5); MEAN CORPUSCULAR HEMOGLOBIN 29.4 pg (27.0-33.0); MEAN CORPUSCULAR HGB CONC 32.3 g/dl (32.0-36.5); MEAN CORPUSCULAR VOLUME 90.9 fl (80.0-96.0); PLATELET COUNT, AUTOMATED 109 10^3/uL (150-450); RED BLOOD COUNT 3.64 10^6/uL (4.00-5.40)
[2022-06-21 06:53] LABS: ALBUMIN 1.9 GM/DL (3.2-5.2); ALT/SGPT 53 U/L (12-78); BILIRUBIN,TOTAL 0.8 MG/DL (0.2-1.0); BLOOD UREA NITROGEN 19 MG/DL (7-18); CALCIUM LEVEL 7.9 MG/DL (8.8-10.2); CARBON DIOXIDE LEVEL 24 MEQ/L (21-32); CHLORIDE LEVEL 113 MEQ/L (98-107); CREATININE FOR GFR 0.53 MG/DL (0.55-1.30); GLOMERULAR FILTRATION RATE > 60.0 (>32); GLUCOSE, FASTING 95 MG/DL (70-100); POTASSIUM SERUM 2.9 MEQ/L (3.5-5.1); SODIUM LEVEL 143 MEQ/L (136-145); TOTAL PROTEIN 5.1 GM/DL (6.4-8.2)
[2022-06-21 06:54] LABS: MAGNESIUM LEVEL 1.7 MG/DL (1.8-2.4)
[2022-06-21] MEDS ORDERED: MAG SULF 1GM/100ML (MAG RUN) 1 GM in IV 1 EA IV ONE (07:00)
[2022-06-21] MEDS: KCL 10MEQ/100ML SWI (KRUN) 10 MEQ in IV 1 EA IV SCH ×4 (07:08→11:47)
[2022-06-21] MEDS ORDERED: POTASSIUM CHLORIDE 10MEQ SR TABLET PO ONE ×2 (08:00→17:15)
[2022-06-21] MEDS: SENOKOT S TAB PO SCH ×2 (08:49→20:19)
[2022-06-21] MEDS: busPIRone 5 MG TAB PO SCH ×2 (08:55→21:02)
[2022-06-21] MEDS ORDERED: FLUCONAZOLE 100 MG TAB PO SCH (09:00)
[2022-06-21] MEDS: cefTRIAXone SOD 2 GM in D5W MINI-BAG PLUS 50 ML IV SCH (11:12)
[2022-06-21] MEDS: D5W IV SCH ×2 (11:59→21:03)
[2022-06-21] MEDS: ACYCLOVIR IV SCH ×2 (11:59→21:03)
[2022-06-21] MEDS: LIDOCAINE VISCOUS 2% SOLN 15ML UDC SS PRN ×2 (13:05→17:39)
[2022-06-21 14:30] VITALS: BP 116/53
[2022-06-21 14:56] VITALS: BP 116/58
[2022-06-21] MEDS: ARIPiprazole 2 MG TAB PO SCH (21:02)
[2022-06-21] MEDS: CitaloPRAM (CeleXA) 10 MG TABLET PO SCH (21:02)
[2022-06-21] MEDS: GABAPENTIN 100 MG CAP PO SCH (21:02)
[2022-06-21 21:20] VITALS: BP 97/71
[2022-06-21 22:00] VITALS: BP 118/57
[2022-06-22] MEDS: D5W IV SCH ×3 (04:56→20:00)
[2022-06-22] MEDS: ACYCLOVIR IV SCH ×3 (04:56→20:00)
[2022-06-22 06:00] VITALS: BP 119/55
[2022-06-22 06:23] LABS: HEMATOCRIT 33.5 % (36.0-47.0); HEMOGLOBIN 10.5 g/dl (12.0-15.5); MEAN CORPUSCULAR HEMOGLOBIN 28.8 pg (27.0-33.0); MEAN CORPUSCULAR HGB CONC 31.3 g/dl (32.0-36.5); PLATELET COUNT, AUTOMATED 114 10^3/uL (150-450); RED BLOOD COUNT 3.64 10^6/uL (4.00-5.40); WHITE BLOOD COUNT 13.1 10^3/uL (4.0-10.0)
[2022-06-22 07:10] LABS: ALBUMIN 1.8 GM/DL (3.2-5.2); ALT/SGPT 42 U/L (12-78); BILIRUBIN,TOTAL 0.6 MG/DL (0.2-1.0); BLOOD UREA NITROGEN 16 MG/DL (7-18); CALCIUM LEVEL 7.9 MG/DL (8.8-10.2); CARBON DIOXIDE LEVEL 22 MEQ/L (21-32); CHLORIDE LEVEL 112 MEQ/L (98-107); CREATININE FOR GFR 0.58 MG/DL (0.55-1.30); GLOMERULAR FILTRATION RATE > 60.0 (>32); GLUCOSE, FASTING 89 MG/DL (70-100); MAGNESIUM LEVEL 1.8 MG/DL (1.8-2.4); SODIUM LEVEL 141 MEQ/L (136-145); TOTAL PROTEIN 4.9 GM/DL (6.4-8.2)
[2022-06-22] MEDS: SENOKOT S TAB PO SCH (07:55)
[2022-06-22] MEDS: busPIRone 5 MG TAB PO SCH ×2 (09:08→20:00)
[2022-06-22] MEDS: LIDOCAINE VISCOUS 2% SOLN 15ML UDC SS PRN ×3 (09:08→17:42)
[2022-06-22] MEDS: cefTRIAXone SOD 2 GM in D5W MINI-BAG PLUS 50 ML IV SCH (09:08)
[2022-06-22 14:00] VITALS: BP 120/68
[2022-06-22] MEDS: ACETAMINOPHEN TAB 650MG DOSE (2X325MG) PO PRN (14:32)
[2022-06-22] MEDS: MIDODRINE 5 MG TAB PO SCH (16:10)
[2022-06-22] MEDS: FUROSEMIDE 20 MG TAB PO SCH (16:10)
[2022-06-22] MEDS: GABAPENTIN 100 MG CAP PO SCH (20:00)
[2022-06-22] MEDS: QUEtiapine FUMARATE 12.5 MG HALF-TAB PO PRN (20:00)
[2022-06-22] MEDS: ARIPiprazole 2 MG TAB PO SCH (20:00)
[2022-06-22] MEDS: CitaloPRAM (CeleXA) 10 MG TABLET PO SCH (20:00)
[2022-06-22 20:48] VITALS: BP 131/55
[2022-06-23] MEDS: ACYCLOVIR IV SCH ×2 (05:13→13:16)
[2022-06-23] MEDS: D5W IV SCH ×2 (05:13→13:16)
[2022-06-23 05:48] VITALS: BP 118/50
[2022-06-23 05:53] LABS: HEMATOCRIT 29.2 % (36.0-47.0); HEMOGLOBIN 9.8 g/dl (12.0-15.5); MEAN CORPUSCULAR HEMOGLOBIN 29.6 pg (27.0-33.0); MEAN CORPUSCULAR HGB CONC 33.6 g/dl (32.0-36.5); MEAN CORPUSCULAR VOLUME 88.2 fl (80.0-96.0); PLATELET COUNT, AUTOMATED 177 10^3/uL (150-450); RED BLOOD COUNT 3.31 10^6/uL (4.00-5.40); WHITE BLOOD COUNT 12.3 10^3/uL (4.0-10.0)
[2022-06-23 06:56] LABS: ALBUMIN 1.8 GM/DL (3.2-5.2); ALT/SGPT 46 U/L (12-78); BILIRUBIN,TOTAL 0.6 MG/DL (0.2-1.0); BLOOD UREA NITROGEN 15 MG/DL (7-18); CALCIUM LEVEL 7.5 MG/DL (8.8-10.2); CARBON DIOXIDE LEVEL 25 MEQ/L (21-32); CHLORIDE LEVEL 107 MEQ/L (98-107); GLOMERULAR FILTRATION RATE > 60.0 (>32); GLUCOSE, FASTING 82 MG/DL (70-100); MAGNESIUM LEVEL 1.7 MG/DL (1.8-2.4); POTASSIUM SERUM 3.9 MEQ/L (3.5-5.1); SODIUM LEVEL 138 MEQ/L (136-145); TOTAL PROTEIN 5.2 GM/DL (6.4-8.2)
[2022-06-23] MEDS: FUROSEMIDE 20 MG TAB PO SCH (09:03)
[2022-06-23] MEDS: MIDODRINE 5 MG TAB PO SCH ×3 (09:03→16:42)
[2022-06-23] MEDS: busPIRone 5 MG TAB PO SCH ×2 (09:03→19:50)
[2022-06-23] MEDS ORDERED: LOPERAMIDE 2 MG CAPLET PO PRN (12:05)
[2022-06-23] MEDS: LIDOCAINE VISCOUS 2% SOLN 15ML UDC SS PRN ×2 (13:16→19:51)
[2022-06-23 14:00] VITALS: BP 109/52
[2022-06-23] MEDS ORDERED: MAG SULF 1GM/100ML (MAG RUN) 1 GM in IV 1 EA IV ONE (14:20)
[2022-06-23] MEDS ORDERED: LIDOCAINE VISCOUS 2% SOLN 15ML UDC PO ONE (15:55)
[2022-06-23] MEDS ORDERED: LIDOCAINE VISCOUS 2% SOLN 15ML UDC SS PRN (15:55)
[2022-06-23] MEDS ORDERED: QUEtiapine FUMARATE 12.5 MG HALF-TAB PO ONE (16:35)
[2022-06-23] MEDS: ACETAMINOPHEN TAB 650MG DOSE (2X325MG) PO PRN (16:40)
[2022-06-23] MEDS: QUEtiapine FUMARATE 12.5 MG HALF-TAB PO PRN (19:50)
[2022-06-23] MEDS: CitaloPRAM (CeleXA) 10 MG TABLET PO SCH (19:50)
[2022-06-23] MEDS: GABAPENTIN 100 MG CAP PO SCH (19:50)
[2022-06-23] MEDS: ARIPiprazole 2 MG TAB PO SCH (19:50)
[2022-06-23 19:57] VITALS: BP 101/51
[2022-06-23] MEDS: ACYCLOVIR 200 MG CAPSULE PO SCH (21:28)
[2022-06-23] MEDS: BENZOCAINE 10% 9GM TUBE (ANBESOL) MT SCH (22:50)
[2022-06-24 05:15] VITALS: BP 138/61
[2022-06-24] MEDS: ACYCLOVIR 200 MG CAPSULE PO SCH ×3 (05:21→21:37)
[2022-06-24 06:28] LABS: HEMATOCRIT 31.3 % (36.0-47.0); HEMOGLOBIN 10.3 g/dl (12.0-15.5); MEAN CORPUSCULAR HEMOGLOBIN 29.3 pg (27.0-33.0); MEAN CORPUSCULAR HGB CONC 32.9 g/dl (32.0-36.5); MEAN CORPUSCULAR VOLUME 89.2 fl (80.0-96.0); PLATELET COUNT, AUTOMATED 247 10^3/uL (150-450); RED BLOOD COUNT 3.51 10^6/uL (4.00-5.40); WHITE BLOOD COUNT 12.2 10^3/uL (4.0-10.0)
[2022-06-24 06:52] LABS: BLOOD UREA NITROGEN 16 MG/DL (7-18); CARBON DIOXIDE LEVEL 25 MEQ/L (21-32); CHLORIDE LEVEL 105 MEQ/L (98-107); CREATININE FOR GFR 0.75 MG/DL (0.55-1.30); GLOMERULAR FILTRATION RATE > 60.0 (>32); GLUCOSE, FASTING 85 MG/DL (70-100); POTASSIUM SERUM 4.1 MEQ/L (3.5-5.1); SODIUM LEVEL 136 MEQ/L (136-145)
[2022-06-24 06:53] LABS: ALT/SGPT 50 U/L (12-78); BILIRUBIN,TOTAL 0.6 MG/DL (0.2-1.0); CALCIUM LEVEL 8.1 MG/DL (8.8-10.2); MAGNESIUM LEVEL 2.1 MG/DL (1.8-2.4); TOTAL PROTEIN 5.8 GM/DL (6.4-8.2)
[2022-06-24] MEDS: BENZOCAINE 10% 9GM TUBE (ANBESOL) MT SCH ×3 (08:56→20:00)
[2022-06-24] MEDS: busPIRone 5 MG TAB PO SCH ×2 (08:57→19:59)
[2022-06-24] MEDS: MIDODRINE 5 MG TAB PO SCH ×3 (08:58→17:39)
[2022-06-24 08:59] VITALS: BP 122/46
[2022-06-24 09:52] LABS: CLOSTRIDIUM DIFFICILE PCR NEGATIVE (NEGATIVE)
[2022-06-24] MEDS: ACETAMINOPHEN TAB 650MG DOSE (2X325MG) PO PRN ×2 (13:14→19:59)
[2022-06-24 14:00] VITALS: BP 129/50
[2022-06-24 19:34] VITALS: BP 122/58
[2022-06-24] MEDS: ARIPiprazole 2 MG TAB PO SCH (19:59)
[2022-06-24] MEDS: QUEtiapine FUMARATE 12.5 MG HALF-TAB PO PRN (20:00)
[2022-06-24] MEDS: CitaloPRAM (CeleXA) 10 MG TABLET PO SCH (20:00)
[2022-06-24] MEDS: GABAPENTIN 100 MG CAP PO SCH (20:00)
[2022-06-25 05:57] VITALS: BP 127/56
[2022-06-25] MEDS: ACYCLOVIR 200 MG CAPSULE PO SCH ×3 (06:00→21:03)
[2022-06-25 06:18] LABS: BASO # 0.1 10^3/uL (0.0-0.2); BASO % 0.7 % (0.0-1.0); EOS # 0.4 10^3/uL (0.0-0.5); EOS % 4.1 % (0.0-3.0); HEMATOCRIT 30.8 % (36.0-47.0); HEMOGLOBIN 9.8 g/dl (12.0-15.5); LYMPH # 1.9 10^3/uL (1.5-5.0); LYMPH % 17.6 % (24.0-44.0); MEAN CORPUSCULAR HEMOGLOBIN 29.1 pg (27.0-33.0); MEAN CORPUSCULAR HGB CONC 31.8 g/dl (32.0-36.5); MEAN CORPUSCULAR VOLUME 91.4 fl (80.0-96.0); MONO % 9.2 % (2.0-8.0); NEUTROPHILS # 6.9 10^3/uL (1.5-8.5); PLATELET COUNT, AUTOMATED 321 10^3/uL (150-450); RED BLOOD COUNT 3.37 10^6/uL (4.00-5.40); WHITE BLOOD COUNT 10.5 10^3/uL (4.0-10.0)
[2022-06-25] MEDS ORDERED: LIDO2SO SS (06:57)
[2022-06-25] MEDS ORDERED: ACYC200C8 PO (06:57)
[2022-06-25 06:59] LABS: BLOOD UREA NITROGEN 12 MG/DL (7-18); CALCIUM LEVEL 8.3 MG/DL (8.8-10.2); CARBON DIOXIDE LEVEL 27 MEQ/L (21-32); CHLORIDE LEVEL 108 MEQ/L (98-107); CREATININE FOR GFR 0.67 MG/DL (0.55-1.30); GLOMERULAR FILTRATION RATE > 60.0 (>32); GLUCOSE, FASTING 88 MG/DL (70-100); POTASSIUM SERUM 4.3 MEQ/L (3.5-5.1); SODIUM LEVEL 139 MEQ/L (136-145)
[2022-06-25] MEDS: MIDODRINE 5 MG TAB PO SCH ×3 (08:36→14:58)
[2022-06-25] MEDS: busPIRone 5 MG TAB PO SCH ×2 (08:36→21:04)
[2022-06-25] MEDS: BENZOCAINE 10% 9GM TUBE (ANBESOL) MT SCH ×3 (08:37→22:42)
[2022-06-25] MEDS: LIDOCAINE VISCOUS 2% SOLN 15ML UDC SS PRN ×2 (08:43→12:42)
[2022-06-25] MEDS: ACETAMINOPHEN TAB 650MG DOSE (2X325MG) PO PRN ×2 (12:01→21:04)
[2022-06-25 14:58] VITALS: BP 133/42
[2022-06-25] MEDS: ARIPiprazole 2 MG TAB PO SCH (21:03)
[2022-06-25] MEDS: GABAPENTIN 100 MG CAP PO SCH (21:03)
[2022-06-25] MEDS: CitaloPRAM (CeleXA) 10 MG TABLET PO SCH (21:03)
[2022-06-25] MEDS: QUEtiapine FUMARATE 12.5 MG HALF-TAB PO PRN (21:03)
[2022-06-26] MEDS: ACYCLOVIR 200 MG CAPSULE PO SCH ×3 (05:46→21:27)
[2022-06-26 05:49] VITALS: BP 122/42
[2022-06-26] MEDS: MIDODRINE 5 MG TAB PO SCH ×3 (08:00→16:00)
[2022-06-26] MEDS: BENZOCAINE 10% 9GM TUBE (ANBESOL) MT SCH ×3 (09:39→21:28)
[2022-06-26] MEDS: busPIRone 5 MG TAB PO SCH ×2 (09:39→21:27)
[2022-06-26] MEDS: ACETAMINOPHEN TAB 650MG DOSE (2X325MG) PO PRN ×2 (12:50→21:28)
[2022-06-26] MEDS: QUEtiapine FUMARATE 12.5 MG HALF-TAB PO PRN (21:27)
[2022-06-26] MEDS: CitaloPRAM (CeleXA) 10 MG TABLET PO SCH (21:28)
[2022-06-26] MEDS: GABAPENTIN 100 MG CAP PO SCH (21:28)
[2022-06-26] MEDS: ARIPiprazole 2 MG TAB PO SCH (21:28)
[2022-06-26 22:00] VITALS: BP 156/62
[2022-06-27 06:00] VITALS: BP 100/41
[2022-06-27] MEDS: ACYCLOVIR 200 MG CAPSULE PO SCH ×4 (06:24→21:13)
[2022-06-27] MEDS: BENZOCAINE 10% 9GM TUBE (ANBESOL) MT SCH ×3 (08:58→21:13)
[2022-06-27] MEDS: busPIRone 5 MG TAB PO SCH ×2 (09:04→21:13)
[2022-06-27] MEDS: MIDODRINE 5 MG TAB PO SCH ×3 (09:04→15:51)
[2022-06-27 12:30] VITALS: BP 120/52
[2022-06-27] MEDS ORDERED: diphenhydrAMINE 25MG CAP PO ONE (15:30)
[2022-06-27] MEDS ORDERED: QUEtiapine FUMARATE 25 MG TAB PO ONE (15:30)
[2022-06-27] MEDS: ACETAMINOPHEN TAB 650MG DOSE (2X325MG) PO PRN (21:13)
[2022-06-27] MEDS: ARIPiprazole 2 MG TAB PO SCH (21:13)
[2022-06-27] MEDS: GABAPENTIN 100 MG CAP PO SCH (21:13)
[2022-06-27] MEDS: CitaloPRAM (CeleXA) 10 MG TABLET PO SCH (21:13)
[2022-06-27] MEDS: QUEtiapine FUMARATE 12.5 MG HALF-TAB PO PRN (21:13)
[2022-06-28] MEDS: ACYCLOVIR 200 MG CAPSULE PO SCH ×3 (05:15→22:05)
[2022-06-28 06:00] VITALS: BP 112/81
[2022-06-28] MEDS: busPIRone 5 MG TAB PO SCH ×2 (08:22→22:05)
[2022-06-28] MEDS: BENZOCAINE 10% 9GM TUBE (ANBESOL) MT SCH ×3 (08:22→22:05)
[2022-06-28] MEDS: MIDODRINE 5 MG TAB PO SCH ×3 (08:22→15:52)
[2022-06-28] MEDS: ACETAMINOPHEN TAB 650MG DOSE (2X325MG) PO PRN ×2 (14:14→22:23)
[2022-06-28] MEDS ORDERED: QUEtiapine FUMARATE 25 MG TAB PO ONE (15:30)
[2022-06-28] MEDS ORDERED: diphenhydrAMINE 25MG CAP PO ONE (15:30)
[2022-06-28 15:53] VITALS: BP 97/66
[2022-06-28 19:16] VITALS: BP 117/60
[2022-06-28] MEDS: CitaloPRAM (CeleXA) 10 MG TABLET PO SCH (22:05)
[2022-06-28] MEDS: ARIPiprazole 2 MG TAB PO SCH (22:05)
[2022-06-28] MEDS: GABAPENTIN 100 MG CAP PO SCH (22:05)
[2022-06-28] MEDS: LIDOCAINE VISCOUS 2% SOLN 15ML UDC SS PRN (22:06)
[2022-06-28] MEDS: QUEtiapine FUMARATE 12.5 MG HALF-TAB PO PRN (22:22)
[2022-06-29] MEDS: ACYCLOVIR 200 MG CAPSULE PO SCH (05:53)
[2022-06-29 06:00] VITALS: BP 119/52
[2022-06-29] MEDS: busPIRone 5 MG TAB PO SCH (08:33)
[2022-06-29] MEDS: BENZOCAINE 10% 9GM TUBE (ANBESOL) MT SCH (08:33)
[2022-06-29] MEDS: MIDODRINE 5 MG TAB PO SCH (08:33)
[2022-06-29] MEDS ORDERED: ACYC200C8 PO (11:58)
== END 2022-06-29 13:33 | disposition home or self-care (01) | DRG 872 ==
LOC: EDBD 03:36 → M ED 03:36 → M ED INP 10:56 → ENRESERV 11:37 → M MSPAV 12:48
PROVIDERS: ADMIT Family Medicine; ATTEND Internal Medicine
PROC: 05HB33Z Insertion of Infusion Device into Right Basilic Vein, Percutaneous Approach (ICD-10-PCS; principal; 2022-06-16 16:08)
PROC: 05WY33Z Revision of Infusion Device in Upper Vein, Percutaneous Approach (ICD-10-PCS; 2022-06-18)
DX: A41.9 Sepsis, unspecified organism (principal); N17.9 Acute kidney failure, unspecified; B00.2 Herpesviral gingivostomatitis and pharyngotonsillitis; B37.41 Candidal cystitis and urethritis; E87.2 Acidosis; G93.40 Encephalopathy, unspecified; J90 Pleural effusion, not elsewhere classified; F03.90 Unspecified dementia, unspecified severity, without behavioral disturbance, psychotic disturbance, mood disturbance, and anxiety; F32.A Depression, unspecified; F41.9 Anxiety disorder, unspecified; Z79.2 Long term (current) use of antibiotics; Z79.899 Other long term (current) drug therapy; Z88.0 Allergy status to penicillin; Z88.2 Allergy status to sulfonamides; Z88.8 Allergy status to other drugs, medicaments and biological substances; D69.6 Thrombocytopenia, unspecified; Z66 Do not resuscitate

== ENCOUNTER → 2022-07-05 | Outpatient (CLI) | payer MEDICARE ==
[~2022-07-05] MED LIST changes: +ACET650S3 PR; +ACYC200C8 PO; +AMMO12CR7 TOP; +AZIT-12 PO; +BUSP5TA PO; +CEFE1INJ5 IM; +CELE10TA PO; +CETACRE3 EXT; +CETALIQ EXT; +DULC10SU2 PR; +FLEEENE12 PR; +GABA-1171 PO; +LIDO2SO SS; +NYST-13 EXT; +SALI0.6530; +SFHMOMUDC PO; +SODIGEL; +VITA200016 PO; +[UNRECOGNIZED DRUG - CODE] TOP
== END ==
LOC: SKLAB8 05:34
PROVIDERS: ATTEND Neuromusculoskeletal Medicine & OMM
DX: R19.7 Diarrhea, unspecified (principal)

== ENCOUNTER → 2022-08-12 | Outpatient (REF) | payer MEDICARE | LOC: SKLAB8 10:00 | PROVIDERS: ATTEND Nurse Practitioner Family | DX: E55.9 Vitamin D deficiency, unspecified (principal); Z79.899 Other long term (current) drug therapy ==

== ENCOUNTER 2022-08-27 20:27 | Emergency (ER) | payer MEDICARE ==
[2022-08-27 22:37] VITALS: BP 143/64
[2022-08-27 23:33] LABS: RSV AMPLIFICATION NEGATIVE (NEGATIVE)
== END 2022-08-27 23:00 | disposition short-term general hospital (02) ==
LOC: M ED 20:27
DX: S06.5X0A Traumatic subdural hemorrhage without loss of consciousness, initial encounter (principal); W01.0XXA Fall on same level from slipping, tripping and stumbling without subsequent striking against object, initial encounter; Y92.009 Unspecified place in unspecified non-institutional (private) residence as the place of occurrence of the external cause; F32.A Depression, unspecified; F03.90 Unspecified dementia, unspecified severity, without behavioral disturbance, psychotic disturbance, mood disturbance, and anxiety; M50.322 Other cervical disc degeneration at C5-C6 level; M50.323 Other cervical disc degeneration at C6-C7 level; Z88.0 Allergy status to penicillin; Z88.2 Allergy status to sulfonamides; Z88.8 Allergy status to other drugs, medicaments and biological substances; Z79.899 Other long term (current) drug therapy

== ENCOUNTER → 2022-09-06 | Outpatient (REF) | payer MEDICARE ==
[~2022-09-06] MED LIST changes: +CEFU50TA PO
[2022-09-06 22:20] LABS: APPEARANCE, URINE MANUAL CLEAR (CLEAR); COLOR, URINE MANUAL DK YELLOW (YELLOW)
[2022-09-06 22:21] LABS: BILIRUBIN, URINE MANUAL NEGATIVE (NEGATIVE); BLOOD URINE MANUAL POSITIVE (NEGATIVE); GLUCOSE, URINE (UA) MANUAL NEGATIVE (NEGATIVE); KETONE, URINE MANUAL NEGATIVE (NEGATIVE); LEUKOCYTE ESTERASE, URINE MAN POSITIVE (NEGATIVE); NITRITE, URINE MANUAL NEGATIVE (NEGATIVE); PROTEIN, URINE MANUAL TRACE mg/dL (NEGATIVE); UROBILINOGEN, URINE MANUAL NORMAL (NORMAL)
[2022-09-06 22:36] LABS: WBC, URINE 30-40 /hpf (0-3)
[2022-09-06 22:37] LABS: BACTERIA, URINE NONE SEEN; HYALINE CAST, URINE NONE SEEN /lpf (0-1); MUCUS, URINE MOD AMOUNT (NEGATIVE); SQUAMOUS EPITHELIAL CELL URINE LARGE AMOUNT /hpf (SMALL AMT)
== END ==
LOC: SKLAB8 13:31
PROVIDERS: ATTEND Nurse Practitioner Family
DX: R45.1 Restlessness and agitation (principal); Z79.899 Other long term (current) drug therapy

== ENCOUNTER 2022-09-08 21:57 | Emergency (ER) | payer MEDICARE ==
[~2022-09-08] VITALS: Ht 162.6 cm; Wt 75.0 kg
[~2022-09-08 21:57] MED LIST changes: -CEFU50TA PO
[2022-09-09 00:40] LABS: BASO % 0.3 % (0.0-1.0); EOS # 0.3 10^3/uL (0.0-0.5); HEMATOCRIT 32.3 % (36.0-47.0); HEMOGLOBIN 10.3 g/dl (12.0-15.5); LYMPH # 1.8 10^3/uL (1.5-5.0); LYMPH % 14.1 % (24.0-44.0); MEAN CORPUSCULAR HEMOGLOBIN 29.1 pg (27.0-33.0); MEAN CORPUSCULAR HGB CONC 31.9 g/dl (32.0-36.5); MEAN CORPUSCULAR VOLUME 91.2 fl (80.0-96.0); MONO # 1.3 10^3/uL (0.0-0.8); MONO % 10.4 % (2.0-8.0); NEUTROPHILS # 9.2 10^3/uL (1.5-8.5); NEUTROPHILS % 72.5 % (36.0-66.0); PLATELET COUNT, AUTOMATED 279 10^3/uL (150-450); RED BLOOD COUNT 3.54 10^6/uL (4.00-5.40); WHITE BLOOD COUNT 12.7 10^3/uL (4.0-10.0)
[2022-09-09 01:06] LABS: BLOOD UREA NITROGEN 14 MG/DL (9-23); CALCIUM LEVEL 9.2 MG/DL (8.3-10.6); CARBON DIOXIDE LEVEL 22 MMOL/L (20-31); CHLORIDE LEVEL 105 MMOL/L (98-107); CREATININE FOR GFR 0.71 MG/DL (0.55-1.30); GLOMERULAR FILTRATION RATE > 60.0 (>32); GLUCOSE, FASTING 108 MG/DL (74-106); POTASSIUM SERUM 3.5 MMOL/L (3.5-5.1); SODIUM LEVEL 137 MMOL/L (136-145)
[2022-09-09] MEDS ORDERED: CEFU50TA PO (01:20)
[2022-09-09] MEDS ORDERED: CEFUROXIME 500 MG TAB PO ONE (02:00)
[2022-09-09 02:30] VITALS: BP 147/78
== END 2022-09-09 04:03 | disposition home or self-care (01) ==
LOC: M ED 21:57
DX: J18.9 Pneumonia, unspecified organism (principal); R29.6 Repeated falls; S01.81XA Laceration without foreign body of other part of head, initial encounter; W01.0XXA Fall on same level from slipping, tripping and stumbling without subsequent striking against object, initial encounter; Y92.129 Unspecified place in nursing home as the place of occurrence of the external cause; F03.90 Unspecified dementia, unspecified severity, without behavioral disturbance, psychotic disturbance, mood disturbance, and anxiety; M43.12 Spondylolisthesis, cervical region; Z88.0 Allergy status to penicillin; Z88.2 Allergy status to sulfonamides; Z88.8 Allergy status to other drugs, medicaments and biological substances; Z79.899 Other long term (current) drug therapy

== ENCOUNTER → 2022-11-11 | Outpatient (REF) | payer MEDICARE ==
[~2022-11-11] MED LIST changes: +CEFU50TA PO
== END ==
LOC: SKLAB8 07:00
PROVIDERS: ATTEND Internal Medicine
DX: E55.9 Vitamin D deficiency, unspecified (principal); Z79.899 Other long term (current) drug therapy

== ENCOUNTER 2022-11-23 14:42 | Inpatient (IN) | payer MEDICARE ==
[2022-11-23] MEDS ORDERED: ISOVUE-370 76% 100ML VIAL As Ordered ONE (15:15)
[2022-11-23 15:36] LABS: BASO # 0.1 10^3/uL (0.0-0.2); BASO % 0.4 % (0.0-1.0); EOS # 0.3 10^3/uL (0.0-0.5); EOS % 1.3 % (0.0-3.0); HEMATOCRIT 37.8 % (36.0-47.0); HEMOGLOBIN 11.6 g/dl (12.0-15.5); LYMPH # 1.7 10^3/uL (1.5-5.0); LYMPH % 7.7 % (24.0-44.0); MEAN CORPUSCULAR HEMOGLOBIN 28.7 pg (27.0-33.0); MEAN CORPUSCULAR HGB CONC 30.7 g/dl (32.0-36.5); MEAN CORPUSCULAR VOLUME 93.6 fl (80.0-96.0); MONO # 1.5 10^3/uL (0.0-0.8); MONO % 6.5 % (2.0-8.0); NEUTROPHILS # 18.8 10^3/uL (1.5-8.5); NEUTROPHILS % 82.6 % (36.0-66.0); PLATELET COUNT, AUTOMATED 291 10^3/uL (150-450); RED BLOOD COUNT 4.04 10^6/uL (4.00-5.40); WHITE BLOOD COUNT 22.7 10^3/uL (4.0-10.0)
[2022-11-23 16:00] LABS: RSV AMPLIFICATION NEGATIVE (NEGATIVE)
[2022-11-23] MEDS ORDERED: NS 1,000 ML IV SCH (19:30)
[2022-11-23] MEDS ORDERED: MORPHINE 2 MG/ML 1ML VIAL IV PRN (19:30)
[2022-11-23] MEDS ORDERED: ONDANSETRON 4MG 2ML VIAL IV PRN (19:30)
[2022-11-23] MEDS: CLINDAMYCIN 600 MG in IV 1 EA IV SCH (20:49)
[2022-11-23] MEDS ORDERED: NS 500 ML IV ONE (21:15)
[2022-11-23] MEDS ORDERED: CELE20TA PO (21:45)
[2022-11-23] MEDS ORDERED: ERGO500029 PO (21:45)
[2022-11-23] MEDS ORDERED: CLEO300C2 PO (21:45)
[2022-11-23] MEDS ORDERED: NYST1POW9 TOP (21:45)
[2022-11-23] MEDS ORDERED: [UNRECOGNIZED DRUG - CODE] TOP (21:45)
[2022-11-23] MEDS ORDERED: HOME MED LIST COMPLETE! XX SCH (21:50)
[2022-11-23 23:20] VITALS: BP 148/76
[2022-11-24] MEDS ORDERED: FLEET ENEMA PR PRN (00:40)
[2022-11-24] MEDS ORDERED: BISACODYL 10MG SUPP PR PRN (00:40)
[2022-11-24] MEDS ORDERED: ACETAMINOPHEN 650MG SUPP PR PRN (00:40)
[2022-11-24] MEDS: D5W/0.9% SODIUM CHLORIDE 1,000 ML IV SCH ×2 (00:56→12:40)
[2022-11-24] MEDS: CLINDAMYCIN 600 MG in IV 1 EA IV SCH ×3 (01:56→13:31)
[2022-11-24 05:48] VITALS: BP 147/75
[2022-11-24] MEDS ORDERED: VITAMIN A & D OINTMENT 42.5GM TOP PRN (05:50)
[2022-11-24 06:39] LABS: HEMATOCRIT 36.2 % (36.0-47.0); HEMOGLOBIN 11.1 g/dl (12.0-15.5); MEAN CORPUSCULAR HEMOGLOBIN 28.7 pg (27.0-33.0); MEAN CORPUSCULAR HGB CONC 30.7 g/dl (32.0-36.5); MEAN CORPUSCULAR VOLUME 93.5 fl (80.0-96.0); PLATELET COUNT, AUTOMATED 271 10^3/uL (150-450); RED BLOOD COUNT 3.87 10^6/uL (4.00-5.40); WHITE BLOOD COUNT 20.7 10^3/uL (4.0-10.0)
[2022-11-24 07:08] LABS: ALBUMIN 2.2 G/DL (3.2-5.2); ALKALINE PHOSPHATASE 97 U/L (46-116); ALT/SGPT 101 U/L (7.0-40); AST/SGOT 25 U/L (<34); BILIRUBIN,TOTAL 0.5 MG/DL (0.3-1.2); BLOOD UREA NITROGEN 16 MG/DL (9-23); CALCIUM LEVEL 8.1 MG/DL (8.3-10.6); CARBON DIOXIDE LEVEL 26 MMOL/L (20-31); CHLORIDE LEVEL 111 MMOL/L (98-107); CREATININE FOR GFR 0.83 MG/DL (0.55-1.30); GLOMERULAR FILTRATION RATE > 60.0 (>32); GLUCOSE, FASTING 122 MG/DL (74-106); MAGNESIUM LEVEL 1.7 MG/DL (1.8-2.4); POTASSIUM SERUM 3.7 MMOL/L (3.5-5.1); SODIUM LEVEL 144 MMOL/L (136-145); TOTAL PROTEIN 6.7 G/DL (5.7-8.2)
[2022-11-24] MEDS: LACTIC ACID 12% LOTION 225 GM BTL TOP SCH ×2 (07:58→20:55)
[2022-11-24] MEDS: NYSTATIN 100,000 UNITS/GM TOPICAL PWD 15GM TOP SCH ×2 (07:59→20:56)
[2022-11-24 14:00] VITALS: BP 137/80
[2022-11-24] MEDS ORDERED: SCOPOLAMINE 1MG TRANSDERMAL PATCH TOP PRN (17:15)
[2022-11-24] MEDS ORDERED: HYOSCYAMINE SULFATE 0.125 MG SUBL TABLET PO PRN (17:15)
[2022-11-24] MEDS ORDERED: ATROPINE SULFATE 1% OPHTH SOLN 2ML BTL SL PRN (17:15)
[2022-11-24] MEDS ORDERED: ONDANSETRON 4MG 2ML VIAL IV PRN (17:15)
[2022-11-24] MEDS ORDERED: HYDROMORPHONE HCL 0.5 MG/ 0.5 ML SYRINGE IV PRN (17:50)
[2022-11-24] MEDS: LORazepam 2 MG/ML VIAL IV PRN (17:50)
[2022-11-25] MEDS: NYSTATIN 100,000 UNITS/GM TOPICAL PWD 15GM TOP SCH (09:08)
[2022-11-25] MEDS: LACTIC ACID 12% LOTION 225 GM BTL TOP SCH (09:09)
[2022-11-25] MEDS: LORazepam 2 MG/ML VIAL IV PRN (13:52)
== END 2022-11-25 14:14 | DRG 64 ==
LOC: M ED 14:42 → M ED INP 19:29 → M MS5PR 23:03
PROVIDERS: ADMIT Internal Medicine; ATTEND Internal Medicine
DX: I62.00 Nontraumatic subdural hemorrhage, unspecified (principal); G93.6 Cerebral edema; F03.918 Unspecified dementia, unspecified severity, with other behavioral disturbance; L03.211 Cellulitis of face; K11.20 Sialoadenitis, unspecified; I10 Essential (primary) hypertension; G62.9 Polyneuropathy, unspecified; R53.1 Weakness; Z51.5 Encounter for palliative care; Z66 Do not resuscitate; Z88.0 Allergy status to penicillin; Z88.1 Allergy status to other antibiotic agents; Z88.2 Allergy status to sulfonamides; Z88.8 Allergy status to other drugs, medicaments and biological substances; Z79.899 Other long term (current) drug therapy